=== PATIENT | female | born 1960 | race Caucasian/White ===

== ENCOUNTER → 2017-10-03 11:18 | Outpatient (CLI) | payer BC, SELFPAY ==
--- NOTE | 2017-10-03 11:23 | XR_ITS ---
XR hip RT 2-3V w/pelvis HISTORY: ITS.REASON: RT HIP PAIN ORDERING PHYSICIAN: Beatrice Beavers PATIENT AGE: 57 years COMPARISON: None FINDINGS: No fracture or dislocation is evident. No significant degenerative change. No lytic or blastic change. Unremarkable soft tissues IMPRESSION: Negative hip
--- NOTE | 2017-10-03 11:23 | XR_ITS ---
XR knee RT 3V HISTORY: ITS.REASON: RT KNEE PAIN ORDERING PHYSICIAN: Beatrice Beavers PATIENT AGE: 57 years COMPARISON: None FINDINGS: There are mild osteoarthritic changes of the medial compartment. No fracture or dislocation. No lytic or blastic change. IMPRESSION: Mild osteoarthritis of the medial compartment
== END ==
PROVIDERS: PCP Family Medicine; Visit Provider Nurse Practitioner
DX: M25.551 Pain in right hip (principal)
CPT/HCPCS: 73502; 73562

== ENCOUNTER → 2018-02-20 14:48 | Outpatient (CLI) | payer BC, SELFPAY | PROVIDERS: PCP Family Medicine; Visit Provider Family Medicine | DX: R06.83 Snoring (principal); E66.9 Obesity, unspecified | CPT/HCPCS: 95806 ==

== ENCOUNTER → 2020-08-26 07:49 | Outpatient (CLI) | payer BC, SELFPAY ==
--- NOTE | 2020-08-26 07:53 | CT_ITS ---
PROCEDURE: CT HEAD/BRAIN WO CON CLINICAL INDICATION: VERTIGO,DIZZINESS COMPARISON: No exams were available for comparison TECHNIQUE: Axial images obtained. All CT scans at the facility use one or more dose reduction, viz: automated exposure control, ma/kV adjustment per patient size (including targeted exams where dose is matched to indication, i.e. head), or iterative reconstruction technique. FINDINGS: No midline shift, mass effect, intracranial hemorrhage, hydrocephalus, or extra-axial fluid collection is evident. There is a small lucent area in the left occipital bone at approximately 5 mm. Margins are well circumscribed but not sclerotic... No mastoid effusion. No sinus air-fluid level. IMPRESSION: 1. No acute intracranial findings. 2. Small indeterminate lucency left occipital bone. Differential diagnosis is vast. Consider 3 to six-month follow-up to confirm stability Dictated by: Julio Vazquez MD 08/26/2020 08:19 Julio Vazquez MD in [place] 08/26/2020 08:19
== END ==
PROVIDERS: Visit Provider Family Medicine
DX: R42 Dizziness and giddiness (principal)
CPT/HCPCS: 70450

== ENCOUNTER 2020-09-24 10:57 | Emergency (ER) | payer BC, SELFPAY ==
[2020-09-24 11:00] VITALS: BP 134/80; PULSE 91; RESP 19; TEMP 36.8; O2SAT 96; BMI 36.2
--- NOTE | 2020-09-24 11:20 | HMH.EDUTC ---
[facility] [place] Impression: Viral syndrome Disposition: Home, Self-Care Condition on Discharge: Good Instructions: DI for Viral Syndrome Additional Instructions: Drink plenty of fluids. Take tylenol for pain or fever. Return if you begin to have difficulty breathing. Follow up with your regular doctor. GO TO THE ER FOR ANY WORSENING SYMPTOMS Prescriptions: Ondansetron [Zofran 4mg ODT] 4 mg PO Q8HP PRN #12 tab.rapdis PRN Reason: Nausea Transmission Status: Received by [id number] Benzonatate [Tessalon Perle 100mg Cap] 100 mg PO TIDP PRN #30 cap PRN Reason: Cough Transmission Status: Received by [id number] Referrals: Yanely Shoemaker MD [Primary Care Provider] - Time of Disposition: 11:39 Medical Decision Making - Medical Records Medical records reviewed: No: I reviewed the patient's medical records. - Jose Alejandro Inquiry Pt receiving controlled substance: No Vital Signs: 09/24/20 11:00 09/24/20 11:40 Temperature 98.3 F 98.3 F Temperature Source Oral Pulse Rate 91 H Pulse Rate [Right Brachial] 91 H Respiratory Rate 19 19 Blood Pressure 134/80 Blood Pressure [Right Arm] 134/80 Blood Pressure Mean [Right Arm] 98 Blood Pressure Source [Right Arm] Automatic Cuff Blood Pressure Position [Right Arm] Sitting 02 Sat by Pulse Oximetry 96 Oxygen Delivery Method Room Air [facility] [place] - General Stated complaint: covid test, symptoms Time Seen by Provider: 09/24/20 11:20 Mode of Arrival: Ambulatory Source of Information: Patient Limitations: No Limitations Description of Symptoms (Recalled from Triage Doc. by RN): PATIENT C/O BODY ACHES, HEADACHE, AND LETHARGY SINCE SUNDAY. REQUESTING A COVID TEST HEENT Symptoms (Recalled from RN notes): Yes Resp Symptoms (Recalled from RN notes): No Skin Symptoms (Recalled from RN notes): No MS Symptoms (Recalled from RN notes): No Functional Status (Recalled from RN notes): WNL - History of Present Illness Provider Complaint: She states that for the past 2 days she has had chilling, fatigue and she has felt bad. She has not been vaccinated against covid-19. She denies any known exposure but she would like to be checked for it. - Related Data Home Medications Medication Instructions Recorded Confirmed Metoprolol Succinate [Metoprolol 50 mg PO DAILY 09/24/20 09/24/20 Succinate 50mg Tablet*] Previous Rx's Medication Instructions Recorded Benzonatate [Tessalon Perle 100mg 100 mg PO TIDP PRN #30 cap 09/24/20 Cap] Ondansetron [Zofran 4mg ODT] 4 mg PO Q8HP PRN #12 tab.rapdis 09/24/20 Allergies Allergy/AdvReac Type Severity Reaction Status Date / Time No Known Allergies Allergy Verified 04/19/19 17:48 - Worker's Comp Is this a Worker's Comp case?: No [facility] History - Hepatitis A Screen Drug use history?: No High risk sexual behaviors?: No History of sexually transmitted infection?: No Currently employed?: No Childcare worker?: No Do you have indoor plumbing?: Yes Do you have electricity?: Yes Attestation statement:: This patient has been screened for Hepatitis A risk factors. I have reviewed the patient's past medical history: Yes Medical History: Denies:: Diabetes Mellitus Type 1, Diabetes Mellitus Type 2, Internal Pacemaker Other Medical History: Reports: Hormone Therapy Laterality Cases: Bilateral: Tonsillectomy Other Surgeries: Yes: No Previous Surgery. No: Pacemaker - Social History Smoking Status: Never smoker Alcohol Intake: never Occupational Status: other ROS Obtained: Yes All systems reviewed & no additional complaints - Constitutional Constitutional: Reports system reviewed and no additional complaints, except as docu - Eyes Eyes: Reports system reviewed and no additional complaints, except as docu - ENT Ears, Nose, Mouth, and Throat: Reports system reviewed and no additional complaints, except as docu - Cardiovascular Cardiovascular: Reports system review
[2020-09-24 11:40] VITALS: BP 134/80; PULSE 91; RESP 19; TEMP 36.8; O2SAT 96
== END 2020-09-24 11:43 | disposition home or self-care (01) ==
PROVIDERS: Emergency Provider Nurse Practitioner Family; PCP Family Medicine
DX: B34.9 Viral infection, unspecified (principal); R51.9 Headache, unspecified
CPT/HCPCS: 99202; G0463; U0003

== ENCOUNTER → 2021-01-03 07:51 | Outpatient (CLI) | payer BC, SELFPAY ==
[2021-01-03 08:24] LABS: Basophils # 0.1 K/mm3 (0-0.2); Eosinophils # 0.3 K/mm3 (0.0-0.4); Eosinophils % 2.9 % (0.1-12.0); Hematocrit 45.1 % (37.0-47.0); Hemoglobin 14.4 g/dL (12.2-16.2); Lymphocytes # 3.8 K/mm3 (0.7-4.5); Lymphocytes % 44.1 % (10-50); Mean Corpuscular HGB Conc 31.8 g/dL (31.8-35.4); Mean Corpuscular Hemoglobin 31.6 pg (27.0-31.2); Mean Corpuscular Volume 99.2 fl (81-99); Mean Platelet Volume 9.4 fl (7.4-10.4); Monocytes # 0.4 K/mm3 (0.1-1.0); Monocytes % 4.7 % (1.7-9.3); Neutrophils % 47.2 % (37.0-80.0); Platelet Count 314 K/mm3 (142-424); Red Blood Count 4.55 M/mm3 (4.20-5.40); White Blood Count 8.5 K/mm3 (4.8-10.8)
[2021-01-03 09:08] LABS: Alanine Aminotransferase 19 U/L (12-78); Alkaline Phosphatase 50 U/L (38-126); Anion Gap 9.3 mEq/L (5-15); Aspartate Amino Transferase 23 U/L (14-36); Bilirubin,Direct 0.1 mg/dl (0.0-0.4); Bilirubin,Indirect 0.4 mg/dL (0.0-0.9); Bilirubin,Total 0.5 mg/dl (0.2-1.3); Bilirubin,Unconjugated 0.4 mg/dL (0.0-1.1); Blood Urea Nitrogen 14 mg/dl (7-17); Calcium 9.1 mg/dl (8.4-10.2); Carbon Dioxide 27 mmol/L (22.0-30.0); Chloride 107 mmol/L (98-107); Chol/HDL Ratio 5.3 (1-3.5); Cholesterol 230 mg/dl (140-200); Estimated Glomerular Filt Rate 86 ml/min (>60); GFR (African American) 104 ML/MIN (>60); Glucose 118 mg/dl (74-100); HDL Cholesterol 43 mg/dl (40-60); Potassium 4.3 mmoL/L (3.5-5.1); Sodium 139 mmol/L (136-145); Triglycerides 203 mg/dl (30-150); VLDL Cholesterol 41 mg/dL (0-40)
[2021-01-03 09:38] LABS: Thyroid Stimulating Hormone 3.15 uIU/mL (0.465-4.68)
[2021-01-03 10:15] LABS: Free T4 (Free Thyroxine) 1.14 ng/dl (0.78-2.19)
== END ==
PROVIDERS: Visit Provider Urology
DX: R00.2 Palpitations (principal); R94.31 Abnormal electrocardiogram [ECG] [EKG]
CPT/HCPCS: 80048; 80061; 80076; 84439; 84443; 85025

== ENCOUNTER → 2021-01-05 08:09 | Outpatient (CLI) | payer BC, SELFPAY ==
--- NOTE | 2021-01-05 08:09 | NM_ITS ---
APPROVED REPORT Exam: Nuclear Stress Test Indication: HYPERLIPIDEMIA, FM HX, SOB, PALPITATIONS, ABN EKG Patient Location: Outpatient Stress Tech: Adelina Key Ht: 5 ft 11 in Wt: 260 lbs Bra Size: 34DD HR: 63 bpm BP: 158/83 mmHg BSA: 2.36 m2 BMI: 36.2 History: HYPERLIPIDEMIA, FM HX, SOB, PALPITATIONS, ABN EKG Procedure: Patient exercised on Lewis protocol 7:00 minutes and sec, resting heart rate 63 bpm, resting blood pressure 158/83 mmHg, with exercise maximum heart rate achived was 135 bpm which is 83 % of the maximum predicted heart rate and blood pressure was 204/84 mmHg. Test was stopped due to FATIGUE. Patient denied any complaint of chest pain. Patient has Adequate exercise capacity, achieved 7.7 METs of workload on treadmill, the blood pressure response to exercise was Hypertensive. Electrocardiogram Resting electrocardiogram showed sinus rhythm normal discordance complexes, nonspecific ST-T changes, right ventricular conduction delay, with exercise there is less than 1.[address] segment depression noted from the baseline EKG. The EKG portion of the exercise Myoview is due to baseline abnormal EKG. Cardiac Stress and Resting SPECT Images: Cardiac Stress and Resting SPECT images were obtained using technetium 99m Myoview 31.6 mCi stress and 10.41 mCi at rest. Gated SPECT for analysis of segmental wall motion and calculation of ejection fraction also done. Prone images were also obtained. Cardiac stress and resting SPECT images show mild fixed defect in the anterior wall with normal contractility gated SPECT is likely secondary to soft tissue attenuation, there is no reversible ischemia seen, computer derived ejection fraction is over 65% with no regional wall motion abnormality, right ventricle is normal size and contractility. However there is transient ischemic dilatation of the left ventricle seen, raising the concerns for presence of balanced ischemia, other causes for transient ischemic dilatation includes elevated left ventricular end-diastolic pressure, hypertensive heart disease, microvascular disease and diabetes. Conclusion: 1. The EKG portion of the exercise Myoview was nondiagnostic due to baseline abnormal EKG, patient also did not achieve the target heart rate, patient has adequate exercise capacity achieved 7.7 mets of workload on treadmill, the blood pressure response to exercise was hypertensive. 2. No obvious scintigraphic evidence of reversible ischemia seen at this level of exercise, computer derived ejection fraction is over 65% with no regional wall motion abnormality, right ventricle is normal size and contractility, however there is transient ischemic dilatation of the left ventricle seen, raising the concerns for presence of balanced ischemia other causes for transient ischemic dilatation seen fluid elevated left ventricular end-diastolic pressure, hypertensive heart disease, microvascular disease and diabetes mellitus. 3. Study is technically limited due to patient's body habitus, clinical correlation is recommended. Electronically signed by : Bertin Alvarez MD 01/06/2021 11:06:21
--- NOTE | 2021-01-05 09:20 | CA_ITS ---
APPROVED REPORT Exam: Exercise Treadmill Technologist: Adelina Key, Ht: 5 ft 11 in Wt: 261 lbs BSA: 2.36 m2 HR: 63 bpm BP: 158/83 mmHg Medical History Medications: Vitamin D3,,,,, Metprolol,,,,, Stress Test Details Test: Manual Treadmill HR Resting HR: 28 bpm Max Heart Rate (APMHR): 162.701496 bpm Max HR Achieved: 157 bpm Target HR (85% APMHR): 137.494383 bpm % of APMHR: 96.91 Recovery HR: 77 bpm BP Resting BP: 152/90 mmHg Max BP: 204/84 mmHg Recovery BP: 153.0/80.0 mmHg ECG Resting ECG: NSR, RBBB, low voltage QRS, T wave abns anterolaterally Clinical Exercise duration: 07:00 min Highest Stage Achieved: Exercise capacity: 7.7 METs Stress ECG Conclusion Exercised 7:00 total, completing 2 stages of Lewis and then to manual protocol the last one minute. Max HR: 135 % of PM: 83% Max BP: 204/84 METs: 7.7 Test stopped due to: SOA, Fatigue Symptoms: No CP Arrythmias/Ectopy: None ST-T Changes: Exaggeration of baseline T wave abns in the aterior leads. Conclusion: Non-diagnostic GXT. Blunted HR, response on beta saul. Myoview images reported separately. Electronically signed by : Bertin Alvarez MD 01/06/2021 11:01:45
--- NOTE | 2021-01-05 10:02 | CA_ITS ---
APPROVED REPORT EXAM: Comprehensive 2D, Doppler, and color-flow Echocardiogram Power Builder Developer: Lauren Parham CRT Ht: 5 ft 11 in Wt: 261lbs BSA: 2.36 BP: 152/83 mmHg Indications: Abnormal ECG, Chest Pain 2D Dimensions LA Volume 55.20 mL LA Volume Index 23.40 mL/m2 (M/F) 16-34 M-Mode Dimensions RVDd 2.73 cm (0.9-2.6) LA Diam 3.62 cm (1.9-4.0) LVDd 4.42 cm (3.5-5.7) Ao Diam 3.77 cm (2.0-3.7) LVDs 2.69 cm (3.5-5.7) IVSd 1.20 cm (0.6-1.1) PWd 1.20 cm (0.6-1.1) EF (Teich) 69.80% FS 39.10% EDV (Teich) 88.60 mL ESV (Teich) 26.80 mL LV Diastology E Decel Time 230.00 (160-240 msec) E/A Ratio 1.20 MED E' 7.70 (< 7 cm/sec) MED A' 8.50 cm/s E'/MED E' Ratio 8.23 (>14) LAT E' 8.90 (<10 cm/sec) LAT A' 7.20 cm/s E/LAT E' Ratio 7.12 (>14) Aortic Valve AO Peak GR. 4.50 mmHg Mitral Valve MV A Velocity 53.00 (40-130 cm/s) E/A Ratio 1.20 MV Decel. Time 230.00 (160-240 ms) Pulmonary Valve PV Peak Velocity 105.00 (50-150 cm/s) Tricuspid Valve TR P. Velocity 319.00 cm/s RAP Estimate 10.00 mmHg RVSP 50.60 mmHg Left Ventricle Technically difficult study because of the patient factors and poor acoustic windows. Left atrium is normal size, left ventricle is normal size, there is preserved left ventricular systolic function, visually estimated ejection fraction 55% with no obvious regional wall motion abnormality, endocardial surface a very poorly visualized, diastolic parameters are inconclusive. Right Ventricle Right atrium and right ventricle appears to be qualitatively mildly enlarged with normal contractility. Aortic Valve Aortic valve is minimally thickened and fibrosed. There is no aortic stenosis or aortic insufficiency. Mitral Valve Mitral valve grossly normal, there is trace mitral regurgitation. Tricuspid Valve Tricuspid valve grossly normal, there is trace tricuspid regurgitation, tricuspid regurgitation jet velocity is inadequate for calculation of the right ventricular systolic pressure. Pulmonic Valve Pulmonic valve is poorly visualized. Great Vessels Aortic root is normal size. Pericardium No significant pericardial effusion noted, there is anterior echo-free space seen. Conclusion 1. Technically difficult study because of the patient factors and poor acoustic windows. 2. Normal left ventricular size, preserved left ventricular systolic function, visually estimated ejection fraction 55% with no regional wall motion abnormality, diastolic parameters are inconclusive. 3. Mildly enlarged right ventricle with normal contractility 4. Trace mitral and tricuspid regurgitation. 5. There is no significant pericardial effusion noted, there is anterior echo-free space seen. Electronically signed by : Bertin Alvarez MD 01/06/2021 13:29:12
== END ==
PROVIDERS: PCP Family Medicine; Visit Provider Urology
DX: R00.2 Palpitations (principal); R94.31 Abnormal electrocardiogram [ECG] [EKG]
CPT/HCPCS: 78452; 93017; 93306; A9502

== ENCOUNTER → 2021-02-08 18:41 | Outpatient (CLI) | payer BC, SELFPAY | PROVIDERS: PCP Family Medicine; Visit Provider Urology | DX: R06.83 Snoring (principal); R40.0 Somnolence; R53.83 Other fatigue; R00.2 Palpitations; R94.31 Abnormal electrocardiogram [ECG] [EKG] | CPT/HCPCS: G0399 ==

== ENCOUNTER 2021-09-07 08:08 | Day surgery (SDC) | payer BC, SELFPAY ==
[2021-09-07] VITALS (12 sets, daily range): BP systolic 92–147; BP diastolic 62–87; PULSE 58–74; RESP 18; TEMP 36.8; O2SAT 91–98; BMI 36.5
--- NOTE | 2021-09-07 07:06 | IR_ITS ---
APPROVED REPORT Patient Location: Outpatient Spinning Lathe Operator: VELIA Steen RT (R) PROCEDURES Left heart catheterization Left ventriculogram Selective coronary angiogram INDICATION Abnormal Myoview Informed consent was obtained prior to the procedure. COMPLICATIONS None Estimated Blood Loss: Less than 10 mls TECHNIQUE One percent lidocaine used to anesthetize the right anterior aspect of the wrist. The right radial artery was accessed via the Seldinger technique. A 6 Vietnamese sheath was placed in the right radial artery. 2.5 mg of verapamil, 800 mcg of nitroglycerin, 1mg Lidocaine and 5000 U Heparin were given through the arterial sheath. The papa catheter was also used to perform left heart catheterization, left ventriculogram and selective coronary angiogram. At the end of the procedure the sheath was removed good hemostasis was achieved using Traclet band, patient was transferred to the postop holding area in stable condition. ANGIOGRAPHIC RESULTS The left main artery Normal The left anterior descending artery Is an ostial and proximal 10 to 20% smooth stenosis accompanied initially by TAYO II flow in the LAD The circumflex artery Nondominant with mild 10% luminal irregularities The right coronary artery Large dominant normal with initial TAYO II flow which improved to TAYO-3 flow with subsequent injection The NEIL ventriculogram reveals Normal 65% The left ventricular end-diastolic pressure 30 mmHg IMPRESSION Mild nonflow limiting coronary disease Slow flow down the dominant right coronary artery in the LAD consistent with endothelial dysfunction combined with diastolic dysfunction Normal left ventricular systolic function Elevated LVEDP consistent with diastolic dysfunction PLAN 1. Aggressive risk factor modification 2. Treatment of endothelial dysfunction and diastolic dysfunction Electronically signed by : Farshad More MD 09/07/2021 12:46:00
[2021-09-07 08:23] LABS: Coronavirus 19, PCR Not Detected (NotDetected); Influenza A, PCR Not Detected (NotDetected); Influenza B, PCR Not Detected (NotDetected)
[2021-09-07 08:45] LABS: Basophils # 0.3 K/mm3 (0-0.2); Basophils % 3.6 % (0.1-2.0); Eosinophils # 0.2 K/mm3 (0.0-0.4); Eosinophils % 2.8 % (0.1-12.0); Hematocrit 44.1 % (37.0-47.0); Hemoglobin 14.6 g/dL (12.2-16.2); Lymphocytes % 37.9 % (10-50); Mean Corpuscular Volume 96.9 fl (81-99); Mean Platelet Volume 8.9 fl (7.4-10.4); Monocytes # 0.5 K/mm3 (0.1-1.0); Monocytes % 5.7 % (1.7-9.3); Platelet Count 280 K/mm3 (142-424); Red Blood Count 4.55 M/mm3 (4.20-5.40)
[2021-09-07 08:52] LABS: Chloride 105 mmol/L (98-107); Potassium 4.1 mmoL/L (3.5-5.1); Sodium 139 mmol/L (136-145)
[2021-09-07 08:54] LABS: Alanine Aminotransferase 21 U/L (12-78); Anion Gap 8.1 mEq/L (5-15); Aspartate Amino Transferase 37 U/L (14-36); Bilirubin,Unconjugated 0.5 mg/dL (0.0-1.1); Blood Urea Nitrogen 13 mg/dl (7-17); Carbon Dioxide 30 mmol/L (22.0-30.0); Creatinine Clearance Estimated 162 mL/min (50-200); Estimated Glomerular Filt Rate 86 ml/min (>60); GFR (African American) 104 ML/MIN (>60)
[2021-09-07 08:55] LABS: Albumin Level 4.1 g/dl (3.5-5.0); Alkaline Phosphatase 54 U/L (38-126); Bilirubin,Direct 0.1 mg/dl (0.0-0.4); Bilirubin,Indirect 0.5 mg/dL (0.0-0.9); Bilirubin,Total 0.6 mg/dl (0.2-1.3); Calcium 9.1 mg/dl (8.4-10.2); Chol/HDL Ratio 6.4 (1-3.5); Cholesterol 225 mg/dl (140-200); Glucose 127 mg/dl (74-100); HDL Cholesterol 35 mg/dl (40-60); Total Protein,Serum 7.4 g/dl (6.3-8.2); Triglycerides 212 mg/dl (30-150); VLDL Cholesterol 42 mg/dL (0-40)
[2021-09-07 09:06] LABS: Direct LDL Cholesterol 148.27 mg/dL (100-129)
== END 2021-09-07 15:13 | disposition home or self-care (01) ==
LOC: CATHLAB 08:14
PROVIDERS: Nurse Practitioner Family; PCP Family Medicine; Visit Provider Internal Medicine
DX: I25.118 Atherosclerotic heart disease of native coronary artery with other forms of angina pectoris (principal); R00.2 Palpitations; R06.00 Dyspnea, unspecified; R94.31 Abnormal electrocardiogram [ECG] [EKG]; R94.39 Abnormal result of other cardiovascular function study; I11.9 Hypertensive heart disease without heart failure; E11.9 Type 2 diabetes mellitus without complications
CPT/HCPCS: 36415; 80048; 80061; 80076; 85025; 93458; 99152; C1725; C1769; C9803; J1644; Q9967; U0003; U0005

== ENCOUNTER 2021-11-15 17:30 | Outpatient (RCR) | payer BC, SELFPAY ==
--- NOTE | 2021-11-02 13:48 | HMH.PTOPEV ---
PT Outpatient Evaluation Rehab PT Outpatient Evaluation Start: 11/02/21 11:21 Freq: Status: Active Protocol: Document 11/02/21 11:21 RODOLFO (Rec: 11/02/21 11:25 RODOLFO [id number]) Electronically Signed By Gigi Chua, PT 11/02/21 11:21 Outpatient Therapy Subjective History Subjective History Patient is a 61 year old female presenting to outpatient PT with reports of sub-acute R heel pain of insidious onset starting approx 3 months ago. No recent imaging to report. Pain is worse upon standing in the morning. Signs and symptoms consistent with plantar fasciitis. Comorbidities include hx of HTN and pre- diabetes. Chief Complaint Pain Symptom Type Ache,Sharp Symptoms Relieved By Rest/Positioning,Ice,Activity Symptoms Aggravated By Standing,Physical Activity, Walking Prior Functional Limitations None,Bending/Stooping Current Functional Limitations Housework,Standing Symptom Description Intermittent Level of pain today (0-10) 3 Pain scale - at its best (0-10) 0 Pain scale - at its worst (0-10) 8 Ankle/Foot Eval Gait Observation General Gait Pattern Observation Antalgic Gait,Decrease Weight Bear (R) Assistive Device Ambulation Assistive Device None Palpation Tenderness right Ankle/Foot Palpation Findings Tenderness Ankle/Foot Palpation Overall Comment Calcaneal tubercle/proximal 5th ray 2/4 ROM Ankle/Foot Dorsiflexion w/Knee Extended -14 Active Range Motion (degrees) Ankle/Foot Plantar Flexion Active Range WNL of Motion (degrees) Ankle/Foot Eversion Active Range of 12 Motion (degrees) Ankle/Foot Inversion Active Range of 32 Motion (degrees) Ankle/Foot ROM Limitations Soft Tissue Tightness Great Toe ROM Reason Not Measured Within Functional Limits MMT Ankle Dorsiflexion Strength Grade 5 Normal Ankle Plantarflexion Strength Grade 5 Normal Foot Eversion Strength Grade 4 Good Foot Inversion Strength Grade 4 Good Special Tests Ankle Anterior Drawer Test Negative Right Ankle Eversion Test Negative Right Talar Tilt Test Negative Right Ankle Posterior Drawer Test Negative Right Foot Interdigital Neuroma Test Negative Right Outpatient Therapy Assessment Impairments Problems/Impairmments Palpation Tenderness,Impaired
== END 2021-11-15 17:35 | disposition home or self-care (01) ==
LOC: PT 17:30
PROVIDERS: PCP Family Medicine; Visit Provider Nurse Practitioner Family
DX: M79.671 Pain in right foot (principal)
CPT/HCPCS: 97035; 97110; 97163

== ENCOUNTER → 2021-11-17 14:58 | Outpatient (CLI) | payer BC, SELFPAY ==
--- NOTE | 2021-11-17 15:01 | XR_ITS ---
FINAL REPORT CLINICAL HISTORY: pain, possibe spur FINDINGS: RIGHT FOOT Three weight-bearing views of the right foot demonstrate no acute fracture or dislocation. The visualized joint spaces are normally aligned. There is mild degenerative change of the 1st MTP joint. There are small calcaneal spurs. The soft tissues are unremarkable. IMPRESSION: Mild degenerative change with no acute bony abnormality. Reviewed, Interpreted and Dictated by Wilmar Chavez III, MD Transcribed by Beth Wilson Authenticated and . [facility]
== END ==
PROVIDERS: PCP Family Medicine; Visit Provider Podiatrist
DX: M79.671 Pain in right foot (principal); M24.571 Contracture, right ankle; M72.2 Plantar fascial fibromatosis
CPT/HCPCS: 73630

== ENCOUNTER → 2022-07-15 08:06 | Outpatient (CLI) | payer BC, SELFPAY ==
[2022-07-15 09:33] LABS: Basophils # 0.1 K/mm3 (0-0.2); Basophils % 0.8 % (0.1-2.0); Eosinophils # 0.2 K/mm3 (0.0-0.4); Eosinophils % 1.9 % (0.1-12.0); Hematocrit 43.9 % (37.0-47.0); Hemoglobin 13.7 g/dL (12.2-16.2); Lymphocytes # 2.7 K/mm3 (0.7-4.5); Lymphocytes % 35.9 % (10-50); Mean Corpuscular HGB Conc 31.1 g/dL (31.8-35.4); Mean Corpuscular Hemoglobin 29.2 pg (27.0-31.2); Mean Corpuscular Volume 93.8 fl (81-99); Mean Platelet Volume 9.3 fl (7.4-10.4); Monocytes # 0.4 K/mm3 (0.1-1.0); Neutrophils # 4.3 K/mm3 (1.8-7.8); Neutrophils % 56.4 % (37.0-80.0); Platelet Count 270 K/mm3 (142-424); Red Blood Count 4.68 M/mm3 (4.20-5.40); White Blood Count 7.6 K/mm3 (4.8-10.8)
[2022-07-15 09:54] LABS: Hemoglobin A1C 8.4 % (4.0-6.0)
[2022-07-15 10:22] LABS: Alanine Aminotransferase 15 U/L (12-78); Albumin Level 3.7 g/dl (3.5-5.0); Albumin/Globulin Ratio 1.3 (1.1-1.8); Alkaline Phosphatase 60 U/L (38-126); Anion Gap 7.3 mEq/L (5-15); Aspartate Amino Transferase 21 U/L (14-36); Bilirubin,Total 0.5 mg/dl (0.2-1.3); Blood Urea Nitrogen 11 mg/dl (7-17); Calcium 8.8 mg/dl (8.4-10.2); Carbon Dioxide 29 mmol/L (22.0-30.0); Chloride 104 mmol/L (98-107); Chol/HDL Ratio 6.2 (1-3.5); Cholesterol 211 mg/dl (140-200); Estimated Glomerular Filt Rate 73 ml/min (>60); GFR (African American) 89 ML/MIN (>60); Globulin 2.9 g/dL (1.3-3.2); Glucose 108 mg/dl (74-100); HDL Cholesterol 34 mg/dl (40-60); Potassium 4.3 mmoL/L (3.5-5.1); Sodium 136 mmol/L (136-145); Total Protein,Serum 6.6 g/dl (6.3-8.2); Triglycerides 166 mg/dl (30-150); VLDL Cholesterol 33 mg/dL (0-40)
[2022-07-15 10:33] LABS: Direct LDL Cholesterol 136.31 mg/dL (100-129)
[2022-07-15 10:39] LABS: 25-OH Vitamin D, Total 26.6 ng/mL (30-100)
[2022-07-15 10:53] LABS: Thyroid Stimulating Hormone 2.25 uIU/mL (0.465-4.68)
== END ==
PROVIDERS: PCP Family Medicine; Visit Provider Family Medicine
DX: I10 Essential (primary) hypertension (principal); R73.03 Prediabetes; E78.2 Mixed hyperlipidemia; E55.9 Vitamin D deficiency, unspecified; E66.9 Obesity, unspecified; Z68.36 Body mass index [BMI] 36.0-36.9, adult
CPT/HCPCS: 36415; 80053; 80061; 82306; 83036; 84443; 85025

== ENCOUNTER → 2022-10-17 12:36 | Outpatient (CLI) | payer BC, SELFPAY ==
[2022-10-17 11:34] LABS: Microscopic, Urine URINE MICROSCOPIC (MICROSCOPIC)
[2022-10-17 12:51] LABS: Appearance,Urine CLEAR (Clear); Bilirubin,Urine Negative (Negative); Blood, Urine TRACE-I (Negative); Color,Urine YELLOW (Yellow); Glucose,Urine (UA) Negative (Negative); Ketones,Urine Negative (Negative); Leukocyte Esterase,Urine Negative (Negative); Nitrate,Urine Negative (Negative); PH,Urine 5.5 (5.0-8.5); Protein,Urine Negative (Negative); Specific Gravity, Urine >= 1.030 (1.005-1.030); Urobilinogen,Urine 0.2 EU/dl (0.2)
[2022-10-17 13:20] LABS: Alanine Aminotransferase 19 U/L (12-78); Albumin/Globulin Ratio 1.3 (1.1-1.8); Alkaline Phosphatase 59 U/L (38-126); Anion Gap 11.4 mEq/L (5-15); Aspartate Amino Transferase 25 U/L (14-36); Bilirubin,Total 0.4 mg/dl (0.2-1.3); Blood Urea Nitrogen 11 mg/dl (7-17); Calcium 9.1 mg/dl (8.4-10.2); Carbon Dioxide 26 mmol/L (22.0-30.0); Chloride 108 mmol/L (98-107); Chol/HDL Ratio 4.8 (1-3.5); Cholesterol 212 mg/dl (140-200); Estimated Glomerular Filt Rate 73 ml/min (>60); GFR (African American) 89 ML/MIN (>60); Glucose 108 mg/dl (74-100); HDL Cholesterol 44 mg/dl (40-60); Potassium 4.4 mmoL/L (3.5-5.1); Sodium 141 mmol/L (136-145); Triglycerides 183 mg/dl (30-150); VLDL Cholesterol 37 mg/dL (0-40)
[2022-10-17 13:31] LABS: Direct LDL Cholesterol 122.56 mg/dL (100-129)
[2022-10-17 13:33] LABS: RBC,Urine Occasional #/hpf (0-3); Squamous Epithelial Cell,Urine Occasional #/hpf (0-5); WBC,Urine Occasional #/hpf (0-3)
[2022-10-17 13:37] LABS: 25-OH Vitamin D, Total 21.1 ng/mL (30-100)
[2022-10-17 13:47] LABS: Hemoglobin A1C 5.8 % (4.0-6.0)
[2022-10-17 14:06] LABS: Vitamin B12 367 pg/mL (239-931)
[2022-10-17 16:49] LABS: Creatinine,Urine Random 214 mg/dL (Not Estab.)
[2022-10-17 16:52] LABS: Microalbumin/Creatinine Ratio 4.2
[2022-10-19 03:37] LABS: Neisseria gonorrhoeae, NAA Negative (Negative)
== END ==
PROVIDERS: PCP Nurse Practitioner Family; Visit Provider Nurse Practitioner Family
DX: E11.69 Type 2 diabetes mellitus with other specified complication (principal); E78.5 Hyperlipidemia, unspecified; E55.9 Vitamin D deficiency, unspecified; R53.83 Other fatigue; E66.9 Obesity, unspecified; Z68.36 Body mass index [BMI] 36.0-36.9, adult; Z11.8 Encounter for screening for other infectious and parasitic diseases
CPT/HCPCS: 36415; 80053; 80061; 81001; 82043; 82306; 82570; 82607; 83036; 87086; 87491; 87591

== ENCOUNTER → 2023-01-11 11:00 | Outpatient (CLI) | payer BC, SELFPAY ==
[2023-01-11 14:57] LABS: Alanine Aminotransferase 15 U/L (12-78); Albumin Level 3.9 g/dl (3.5-5.0); Albumin/Globulin Ratio 1.1 (1.1-1.8); Alkaline Phosphatase 55 U/L (38-126); Anion Gap 12.6 mEq/L (5-15); Aspartate Amino Transferase 19 U/L (14-36); Bilirubin,Total 0.6 mg/dl (0.2-1.3); Blood Urea Nitrogen 10 mg/dl (7-17); Carbon Dioxide 28 mmol/L (22.0-30.0); Chloride 106 mmol/L (98-107); Chol/HDL Ratio 6.9 (1-3.5); Cholesterol 222 mg/dl (140-200); Estimated Glomerular Filt Rate 73 ml/min (>60); GFR (African American) 89 ML/MIN (>60); Globulin 3.5 g/dL (1.3-3.2); Glucose 104 mg/dl (74-100); HDL Cholesterol 32 mg/dl (40-60); Potassium 4.6 mmoL/L (3.5-5.1); Sodium 142 mmol/L (136-145); Total Protein,Serum 7.4 g/dl (6.3-8.2); Triglycerides 175 mg/dl (30-150); VLDL Cholesterol 35 mg/dL (0-40)
[2023-01-11 15:08] LABS: Direct LDL Cholesterol 138.18 mg/dL (100-129)
[2023-01-11 15:14] LABS: 25-OH Vitamin D, Total 23.8 ng/mL (30-100)
[2023-01-11 18:28] LABS: Hemoglobin A1C 5.6 % (4.0-6.0)
--- OUTSIDE RECORDS SUMMARY | 2023-01-12 14:05 | XMS_ITS | Patient Health Record ---
Author Name Unknown Organization [facility] PRODUCTION Address [address] [place] [address] Care Team Providers Care Medical Housekeeper Name Role Phone Davida Martel Unavailable [phone] Jean Cantu Unavailable [phone] PROBLEMS Type Condition ICD9-CM Code [id number] Code Onset Dates Condition Status W/U Status Risk SNOMED Code Notes Problem Cervical smear, as part of routine gynecological examination Z01.419 Jan, Active [id number] Annual without abnormal findings ENCOUNTERS from 1962 to 2023-01-12 Encounter Location Date Provider Diagnosis [facility] [address] [place] [address] Apr, [facility] [address] [place] [address] Jan, Davida Fusstephanie [facility] [address] [place] [address] Sep, [facility] [address] [place] [address] Jul, [facility] [address] [place] [address] Jul, Kodi
== END ==
PROVIDERS: PCP Nurse Practitioner Family; Visit Provider Nurse Practitioner Family
DX: E11.69 Type 2 diabetes mellitus with other specified complication (principal); E78.5 Hyperlipidemia, unspecified; E55.9 Vitamin D deficiency, unspecified; E66.9 Obesity, unspecified; Z68.38 Body mass index [BMI] 38.0-38.9, adult
CPT/HCPCS: 80053; 80061; 82306; 83036

== ENCOUNTER 2023-04-24 13:09 | Outpatient (CLI) | payer BC, SELFPAY ==
--- NOTE | 2023-04-24 13:10 | CA_ITS ---
APPROVED REPORT EXAM: Comprehensive 2D, Doppler, and color-flow Echocardiogram [employer] Head: ELIE Mckeon, RVS Ht: 5 ft 10 in Wt: 257lbs BSA: 2.32 BP: 133/92 mmHg Indications: CP, CAD, Abn EKG, HTN, DM, pectis excavatum Echo Enhancing Agent Comments: TDS due to patient factors 2D Dimensions Left Atrium 3.50 cm LA Volume 61.90 mL LA Volume Index 26.00 mL/m2 (M/F) 16-34 M-Mode Dimensions RVDd 3.11 cm (0.9-2.6) LA Diam 4.52 cm (1.9-4.0) LVDd 5.24 cm (3.5-5.7) LVDs 3.32 cm (3.5-5.7) IVSd 0.72 cm (0.6-1.1) PWd 0.77 cm (0.6-1.1) EF (Teich) 66.00% EPSs 1.19 cm FS 36.60% EDV (Teich) 131.80 mL TAPSE 2.06 (<1.7) ESV (Teich) 44.80 mL LV Diastology E Decel Time 147 (160-240 msec) E/A Ratio 1.42 MED A' 6.20 cm/s LAT A' 8.40 cm/s Aortic Valve ELIZABETH Index 0.77 cm2/m2 AoV Peak Rory. 120.0 (50-130 cm/s) AO Peak GR. 5.70 mmHg AO Mean GR. 2.90 (<5 mmHg) AO VTI 25.8 (18-25 cm) ELIZABETH (VTI) 1.84 (2.5-4.5 cm2) Mitral Valve MV A Velocity 76.0 (40-130 cm/s) E/A Ratio 1.42 Tricuspid Valve TR P. Velocity 179.00 cm/s RAP Estimate 10.00 mmHg RVSP 22.70 mmHg Left Ventricle The left ventricle is normal size. The left ventricular systolic function is normal. The left ventricular ejection fraction is within the normal range. There is normal left ventricular wall thickness. The septum is asynchronous. The left ventricular diastolic function is normal. LVEF is 55%. Right Ventricle The right ventricle is moderately dilated. Right ventricle is mildly hypokinetic. Atria Left atrium is mildly dilated. The right atrium is mildly dilated. There is no Doppler evidence of interatrial shunt. Aortic Valve The aortic valve opens well. There is no aortic valvular stenosis. No aortic regurgitation is present. Mitral Valve The mitral valve is normal in structure. No evidence of mitral valve stenosis. Trace mitral regurgitation. Tricuspid Valve The tricuspid valve leaflets are thin and pliable. Trace tricuspid regurgitation. There is insufficient TR jet to estimate RVSP. Pulmonic Valve The pulmonary valve is normal in structure. Trace pulmonic regurgitation. Great Vessels The aortic root is normal in size. The ascending aorta is normal in size. IVC is normal in size and collapses >50% with inspiration. Pericardium There is no pericardial effusion. Other Information Study Quality: Technically Difficult Conclusion Technically difficult study due to poor acoustic windows. Normal LV systolic function. Asynchronous septum. Moderate RV dilation with mild RV dysfunction. Mild biatrial dilation. No significant valvular stenosis or regurgitation. Electronically signed by : Madyson Allen MD 04/25/2023 04:04:50
--- OUTSIDE RECORDS SUMMARY | 2023-04-24 13:12 | XMS_ITS | Patient Health Record ---
Author Name Unknown Organization [facility] Address [address] [place] [address] Care Team Providers Care Collar Baster Name Role Phone Davida Martel Unavailable [phone] Reason For Referral No Information Medications Medication SIG (Take, Route, Frequency, Duration) Notes Start Date End Date Status Estradiol 0.5 MG Take 1 tablet by joyce th once daily for 11 pt. needs appt. for further refills Active Problems Problem Type SNOMED Code ICD Code Onset Dates Problem Status W/U Status Risk Notes Problem Gynecological examination normal ([id number] ) Cervical smear, as part of routine gynecological examination (Z01.419) 01/25/20 16 Active confirmed Annual without abnormal findings Plan Of Treatment No Information Medical (General) History Medical History History ICD Code ABORTIONS: 0 MENSTR FLOW: Medium SOCIAL HX: 2 alcoholic romie/week; denies use of cig/rec drugs SOCIAL HX: 2 alcoholic romie/week; denies use of cig/rec drugs Abnormal Pap HPV Stress Urinary Incontinence Genital Warts estradiol 0.5 mg tablet, BY MOUTH metoprolol tartrate tablet Surgical History Surgery Date(Month/Year) Tonsilectomy 1974, Tubal 200 0, trh, sacrocolpopexy with mini-arc 2011, tonsillectomy
== END 2023-04-24 23:59 ==
LOC: RT 13:10
PROVIDERS: PCP Nurse Practitioner Family; Visit Provider Internal Medicine
DX: R06.09 Other forms of dyspnea (principal); R94.31 Abnormal electrocardiogram [ECG] [EKG]
CPT/HCPCS: 93306

== ENCOUNTER 2023-05-21 10:20 | Outpatient (CLI) | payer BC, SELFPAY ==
[2023-05-21 12:06] LABS: Alanine Aminotransferase 15 U/L (12-78); Albumin Level 3.5 g/dl (3.5-5.0); Albumin/Globulin Ratio 1.2 (1.1-1.8); Anion Gap 8.2 mEq/L (5-15); Aspartate Amino Transferase 20 U/L (14-36); Bilirubin,Total 0.5 mg/dl (0.2-1.3); Blood Urea Nitrogen 12 mg/dl (7-17); Calcium 8.9 mg/dl (8.4-10.2); Carbon Dioxide 28 mmol/L (22.0-30.0); Chloride 108 mmol/L (98-107); Cholesterol 207 mg/dl (140-200); Estimated Glomerular Filt Rate 73 ml/min (>60); GFR (African American) 89 ML/MIN (>60); Globulin 2.9 g/dL (1.3-3.2); Glucose 111 mg/dl (74-100); HDL Cholesterol 35 mg/dl (40-60); Potassium 4.2 mmoL/L (3.5-5.1); Sodium 140 mmol/L (136-145); Total Protein,Serum 6.4 g/dl (6.3-8.2); Triglycerides 143 mg/dl (30-150); VLDL Cholesterol 29 mg/dL (0-40)
[2023-05-21 12:07] LABS: Alkaline Phosphatase 56 U/L (38-126); Chol/HDL Ratio 5.9 (1-3.5)
[2023-05-21 12:18] LABS: Direct LDL Cholesterol 124.86 mg/dL (100-129)
[2023-05-21 12:19] LABS: 25-OH Vitamin D, Total 34.1 ng/mL (30-100)
[2023-05-21 12:35] LABS: Thyroid Stimulating Hormone 2.15 uIU/mL (0.465-4.68)
[2023-05-21 14:28] LABS: Hemoglobin A1C 5.8 % (4.0-6.0)
[2023-05-21 20:17] LABS: Free T4 (Free Thyroxine) 1.23 ng/dl (0.78-2.19)
== END 2023-05-21 23:59 ==
LOC: LAB.DROPOF 10:21
PROVIDERS: PCP Nurse Practitioner Family; Visit Provider Nurse Practitioner Family
DX: E11.69 Type 2 diabetes mellitus with other specified complication (principal); E78.5 Hyperlipidemia, unspecified; E55.9 Vitamin D deficiency, unspecified; E66.9 Obesity, unspecified; Z68.36 Body mass index [BMI] 36.0-36.9, adult
CPT/HCPCS: 36415; 80053; 80061; 82306; 83036; 84439; 84443

== ENCOUNTER 2023-08-20 14:14 | Outpatient (CLI) | payer BC, SELFPAY ==
[2023-08-20 14:27] LABS: Basophils # 0.1 K/mm3 (0-0.2); Basophils % 0.9 % (0.1-2.0); Eosinophils # 0.2 K/mm3 (0.0-0.4); Eosinophils % 1.9 % (0.1-12.0); Hematocrit 44.6 % (37.0-47.0); Lymphocytes # 3.1 K/mm3 (0.7-4.5); Lymphocytes % 32.2 % (10-50); Mean Corpuscular HGB Conc 31.3 g/dL (31.8-35.4); Mean Platelet Volume 9.7 fl (7.4-10.4); Monocytes # 0.4 K/mm3 (0.1-1.0); Monocytes % 4.3 % (1.7-9.3); Neutrophils # 5.7 K/mm3 (1.8-7.8); Neutrophils % 60.8 % (37.0-80.0); Platelet Count 312 K/mm3 (142-424); White Blood Count 9.5 K/mm3 (4.8-10.8)
[2023-08-20 15:07] LABS: Alanine Aminotransferase 12 U/L (12-78); Albumin Level 3.9 g/dl (3.5-5.0); Albumin/Globulin Ratio 1.1 (1.1-1.8); Alkaline Phosphatase 64 U/L (38-126); Anion Gap 12.7 mEq/L (5-15); Aspartate Amino Transferase 20 U/L (14-36); Bilirubin,Total 0.7 mg/dl (0.2-1.3); Blood Urea Nitrogen 13 mg/dl (7-17); Calcium 9.2 mg/dl (8.4-10.2); Carbon Dioxide 30 mmol/L (22.0-30.0); Chloride 103 mmol/L (98-107); Chol/HDL Ratio 4.9 (1-3.5); Cholesterol 240 mg/dl (140-200); Estimated Glomerular Filt Rate 73 ml/min (>60); GFR (African American) 88 ML/MIN (>60); Globulin 3.5 g/dL (1.3-3.2); Glucose 93 mg/dl (74-100); HDL Cholesterol 49 mg/dl (40-60); Potassium 4.7 mmoL/L (3.5-5.1); Sodium 141 mmol/L (136-145); Total Protein,Serum 7.4 g/dl (6.3-8.2); Triglycerides 134 mg/dl (30-150); VLDL Cholesterol 27 mg/dL (0-40)
[2023-08-20 15:10] LABS: Creatinine,Urine Random 243 mg/dL (Not Estab.)
[2023-08-20 15:11] LABS: Microalbumin/Creatinine Ratio 4.2
[2023-08-20 15:18] LABS: Direct LDL Cholesterol 151.28 mg/dL (100-129)
[2023-08-20 15:28] LABS: T4 (Thyroxine) 9.8 ug/dl (5.53-11.0)
[2023-08-20 15:41] LABS: Thyroid Stimulating Hormone 1.98 uIU/mL (0.465-4.68)
[2023-08-20 16:02] LABS: Vitamin B12 343 pg/mL (239-931)
[2023-08-20 17:09] LABS: 25-OH Vitamin D, Total 20.6 ng/mL (30-100)
[2023-08-22 13:14] LABS: HCV Ab Non Reactive (Non Reactive); Hep A Ab, IGM Negative (Negative); Hep A Ab, Total Positive (Negative); Hep B Core Ab, IgM Negative (Negative); Hep B Core Ab, Total Negative (Negative); Hep B Surface Ab, Qual Non Reactive (.)
[2023-08-23 17:38] LABS: Iron 106 ug/dL (37-170)
[2023-08-23 17:47] LABS: Total Iron Binding Capacity 323 ug/dL (265-497)
[2023-08-23 18:14] LABS: Ferritin 63.5 ng/ml (11.1-264)
[2023-08-23 18:44] LABS: Free T4 (Free Thyroxine) 1.29 ng/dl (0.78-2.19)
[2023-08-25 11:52] LABS: HIV Screen 4th Generation wRfx Non Reactive; Triiodothyronine (T3) Reverse 16.1
[2023-08-25 11:53] LABS: HBsAg Screen Negative; Hepatitis B Surface Antigen Negative
[2023-08-25 11:54] LABS: Fibrosis Score 0.08; Fibrosis Stage F0-NO FIBROSIS; Necroinflammat Activity Score 0.02
[2023-08-25 11:55] LABS: Alpha 2-Macroglobulins, Qn 165; Apolipoprotein A-1 120; Bilirubin, Total 0.2; Haptoglobin 225
[2023-08-25 11:56] LABS: ALT (SGPT) P5P 9; GGT 25
== END 2023-08-20 23:59 | disposition home or self-care (01) ==
LOC: LAB.DROPOF 14:15
PROVIDERS: PCP Nurse Practitioner Family; Visit Provider Nurse Practitioner Family
DX: R53.83 Other fatigue (principal); B15.9 Hepatitis A without hepatic coma; B34.9 Viral infection, unspecified; E55.9 Vitamin D deficiency, unspecified; E66.9 Obesity, unspecified; Z68.36 Body mass index [BMI] 36.0-36.9, adult; Z11.3 Encounter for screening for infections with a predominantly sexual mode of transmission
CPT/HCPCS: 80053; 80061; 80074; 81596; 82043; 82306; 82570; 82607; 82728; 83036; 83540; 83550; 84436; 84439; 84443; 84482; 85025; 86703; 86704; 86706; 86708; 87086; 87340; 87522; G0432

== ENCOUNTER 2023-08-29 09:19 | Day surgery (SDC) | payer BC, SELFPAY ==
[2023-08-27 13:29] VITALS: BMI 36.2
[2023-08-29 10:38] VITALS: BP 124/84; PULSE 57; RESP 18; TEMP 36.3; O2SAT 98
[2023-08-29] MEDS: LACTATED RINGERS 1000ML 1,000 ML 25 ML IV (10:50)
[2023-08-29 11:30] VITALS: BP 92/62; PULSE 75; RESP 18; TEMP 36.1; O2SAT 98
--- NOTE | 2023-08-29 11:30 | P.PCN_ITS ---
Procedure: Date: 08/29/23 Patient Date of :: 1960 Procedure Performed:: Colonoscopy Indications:: The patient is a 63-year-old who presents for screening colonoscopy. This is the patient's first colonoscopy. Performing Provider:: Greg Beck MD Referring Provider:: Amanda Guevara APRN Sedation:: See RN records Procedure:: After placing the patient in the left lateral decubitus position, the colonosco py was gently inserted into the rectum and under direct visualization advanced to the cecum which was identified by transillumination in the right lower quadrant, identification of the ileocecal valve, appendiceal orifice, and cecal strap. Color, texture, mucosa, and anatomy of the colon were carefully examined with the scope.. Findings:: The quality of the bowel preparation was excellent. Within the hepatic flexure there was irregular appearing mucosa that was laterally spreading and diffuse. Biopsies were obtained with a cold forceps for histology. There was a sessile polyp 3 to 4 mm in size in the rectum. The polyp was removed with a cold forceps. Internal hemorrhoids were seen on retroflexion view of the colon. The remaining colon appeared normal. Impression: Polyp of the rectum Irregular appearing mucosa in the hepatic flexure Recommendations:: Await pathology results Timing of next colonoscopy will depend on pathology results Complications:: None Estimated blood obtained (mL): 0 Colonoscopy Component Colonoscopy Component Was a colonoscopy performed during today's procedure?: Yes Recommended follow up colonoscopy of at least 10 years?: Yes
--- NOTE | 2023-08-29 11:32 | EXP.ANES.CKL ---
[facility] Disclaimer: The information contained in this section may have been updated after the patient was seen, as this information can be updated by other users. Medical History Fatigue Constipation URI (upper respiratory infection) Screening for gonorrhea Screening for chlamydial disease BMI 36.0-36.9,adult Menopause Arthritis HTN (hypertension) Coronary artery disease Diastolic dysfunction Atypical angina Dyspnea Abnormal cardiovascular stress test Abnormal electrocardiography Palpitations Viral syndrome Surgical History History of partial hysterectomy Hx of tonsillectomy H/O tubal ligation History of cardiac cath Family History Father CHF (congestive heart failure) Mother Cancer lung Social History (Updated 08/27/23 @ 12:55 by Jazlyn Dalton RN) Smoking Status: Never smoker second hand exposure: No alcohol intake: never substance use type: denies use current occupational status: employed Travel in the last 8 weeks: None household members: spouse housing: house current occupational exposures/hazards: No caffeine: No [facility] Anesthesia Checklist Patient Identification Patient Identification: Verbal (Name & ) Structural Data Admitted From: Home Planned Operative Procedure/s: colonoscopy Consent for Planned Operative Procedure(s) Verified: Yes Airway Assessment Mallampati Score:: Class II C-Spine Mobility Assessed: Yes TMJ Mobility Assessed: Yes Dentition: Good Dentition Neurological Assessment Level of Consciousness: Awake, Alert and Appropriate Anesthesia Plan Anesthesia Risk discussed: Yes Anesthesia Plan: Verified ASA Class: II Anesthesia Type: MAC
[2023-08-29 11:40] VITALS: BP 120/67; PULSE 73; RESP 18; O2SAT 97
[2023-08-29 11:50] VITALS: BP 109/59; PULSE 62; RESP 18; O2SAT 98
[2023-08-29 12:02] VITALS: BP 106/70; PULSE 72; RESP 18; O2SAT 98
== END 2023-08-29 12:15 | disposition home or self-care (01) ==
PROVIDERS: PCP Nurse Practitioner Family; Visit Provider Internal Medicine
PROC: 0DJD8ZZ Inspection of Lower Intestinal Tract, Via Natural or Artificial Opening Endoscopic (ICD-10-PCS; CPT 45378; principal; 2023-08-29 11:00)
DX: Z12.11 Encounter for screening for malignant neoplasm of colon (principal); K64.8 Other hemorrhoids; D12.8 Benign neoplasm of rectum
CPT/HCPCS: 45380

== ENCOUNTER 2023-09-25 08:33 | Outpatient (CLI) | payer BC, SELFPAY ==
--- NOTE | 2023-09-25 08:41 | XR_ITS ---
FINAL REPORT TECHNIQUE: Bone densitometry calculations of the lumbar spine and left hip were obtained. CLINICAL HISTORY: screening osteoporosis COMPARISON: None FINDINGS: Using L1-4, the bone mineral density of the spine is 1.043 g/cm2, corresponding to T-score of 0. Using the right femoral neck, the bone mineral density of the femoral neck is g/cm2, corresponding to a T-score of -1.3. NOTE: T-score: Standard deviation compared with peak bone mass of young adult mean. *Following the recommendations of the International Society of Bone densitometry, classification of hip BMD is based on the lower of two T-scores; total hip or femoral neck. IMPRESSION: Diminished bone mineral density of the right hip consistent with osteopenia. Normal bone mineral density of the lumbar spine and left hip. Reviewed, Interpreted and Dictated by Caroline Stone MD Transcribed by Clara Estevez Authenticated and [facility]
== END 2023-09-25 23:59 | disposition home or self-care (01) ==
LOC: RAD 08:33
PROVIDERS: PCP Nurse Practitioner Family; Visit Provider Nurse Practitioner Family
DX: M85.88 Other specified disorders of bone density and structure, other site (principal); Z13.820 Encounter for screening for osteoporosis
CPT/HCPCS: 77080

== ENCOUNTER 2023-09-27 11:44 | Outpatient (CLI) | payer BC, SELFPAY ==
[2023-09-27 14:37] VITALS: BMI 37.3
== END 2023-09-27 23:59 | disposition home or self-care (01) ==
LOC: DIETICIAN 11:45
PROVIDERS: PCP Nurse Practitioner Family; Visit Provider Nurse Practitioner Family
DX: E11.69 Type 2 diabetes mellitus with other specified complication (principal); E66.9 Obesity, unspecified; Z68.36 Body mass index [BMI] 36.0-36.9, adult
CPT/HCPCS: 97802

== ENCOUNTER 2023-10-13 19:28 | Emergency (ER) | payer BC, SELFPAY ==
[2023-10-13 19:29] VITALS: BP 122/79; PULSE 85; RESP 18; TEMP 36.6; O2SAT 99; BMI 35.8
--- NOTE | 2023-10-13 20:08 | XR_ITS ---
PROCEDURE INFORMATION: Exam: XR Right Wrist Exam date and time: 10/13/2023 8:10 PM Age: 63 years old Clinical indication: Injury or trauma; Fall; Swelling (edema); Wrist; Right TECHNIQUE: Imaging protocol: Radiologic exam of the right wrist. Views: 3 or more views. COMPARISON: No relevant prior studies available. FINDINGS: Bones/joints: Normal. Soft tissues: Normal. IMPRESSION: No acute findings.
--- NOTE | 2023-10-13 21:03 | ED_ITS ---
Discharge Plan Disposition Patient Disposition: Home, Self-Care Chief Complaint: Extremity Injury, Upper Prescriptions Prescriptions: No Action (DME) lancets [OneTouch UltraSoft Lancets] Misc See Rx Instructions .Route Qty: 100 3RF Rx Instructions: check glucose 1 time per day (DME) OneTouch Ultra Test Strip See Rx Instructions .Route Qty: 100 3RF Rx Instructions: check glucose 1 time daily (DME) blood-glucose meter [OneTouch Ultra2 Meter] Misc See Rx Instructions .ROUTE .MEDSUPPLY Qty: 1 Rx Instructions: As directed Entresto 49-51 mg tablet 1 tab PO BID Qty: 180 3RF rosuvastatin 5 mg Tablet 5 mg PO DAILY vit D3-folic dckn-[id number]-B12 2,000-800-0.32 unit-mcg-mg Tablet 2,000 tab PO DAILY Referrals Follow up/Referrals: Amanda Guevara APRN [Primary Care Provider] - See instructions Activity Restrictions/Add. Instructions Additional Instructions/Restrictions: At this time it was felt you are safe to be discharged home. If new or worsening symptoms please do not hesitate to return the emergency department. Please use your wrist splint for comfort and take Tylenol and ibuprofen every 6 hours as needed for pain, it is okay to take them at the same time. If symptoms persist in 10 days please follow-up and get a repeat x-ray as small fractures may not be apparent initially today. Clinical Impressions Clinical Impression: Pain of wrist after trauma, Right wrist sprain Discharge ED Provider: Marlon Bell General Adult [facility] General Chief complaint: Extremity Injury, Upper Stated complaint: AO 10/13/23 1630 Injury right wrist Time Seen by Provider: 10/13/23 19:45 Mode of Arrival: Ambulatory Source of Information: Patient Limitations: Physical Limitations Description of Symptoms (Recalled from ER Triage Doc. by RN): Patient presented to the ED for right wrist pain. Patient stated she was playing volleyball and fell backwards and landed on both wrists; did not hit head. Patient rates pain 10/10 to right wrist; no pain or difficulty with left wrist. Patient does not have tingling or decreased sensation to that hand/ arm and is able to move fingers. History of Present Illness HPI narrative: Patient is a 63-year-old female with no pertinent past medical history presents emergency department for evaluation of traumatic wrist pain. Patient fell backwards on her both wrist while playing volleyball, landed on grass. This resulted in severe right wrist pain. Due to this she presents here for continued evaluation. Related Data Home Medications Medication Instructions Recorded Confirmed blood-glucose meter (OneTouch #1 ea 10/17/22 08/20/23 Ultra2 Meter) rosuvastatin 5 mg tablet 5 mg PO DAILY 08/29/23 08/29/23 vit D3-folic acid-vit B2-B6-B12 2,000 tab PO DAILY 08/29/23 08/29/23 2,000 unit-800 mcg-0.32 mg tablet Previous Rx's Medication Instructions Recorded blood sugar diagnostic (OneTouch #100 ea 07/18/22 Ultra Test strips) lancets (OneTouch UltraSoft #100 ea 07/18/22 Lancets) sacubitril 49 mg-valsartan 51 mg 1 tab PO BID #180 tabs 10/01/23 tablet (Entresto) Allergies Allergy/AdvReac Type Severity Reaction Status Date / Time No Known Allergies Allergy Verified 08/29/23 10:37 [facility] Disclaimer: The information contained in this section may have been updated after the patient was seen, as this information can be updated by other users. Medical History (Updated 10/13/23 @ 21:07 by Marlon Bell MD) Acute bronchitis Acute sinusitis Fatigue Constipation URI (upper respiratory infection) Screening for gonorrhea Screening for chlamydial disease BMI 36.0-36.9,adult Menopause Arthritis HTN (hypertension) Coronary artery disease Diastolic dysfunction Atypical angina Dyspnea Abnormal cardiovascular stress test Abnormal electrocardiography Palpitations Viral syndrome Surgical History History of partial hysterectomy Hx of tonsillectomy H/O tubal ligation History of cardiac cath Family History Father CHF (congestive heart failure) Mother Cancer lung Social History (Updated 08/27/23 @ 12:55 by Jazlyn Dalton RN) Smoking Status: Former smoker second hand exposure: No alcohol intake: never substance use type: denies use current occupational status: employed Travel in the last 8 weeks: None household members: spouse housing: house current occupational exposures/hazards: No caffeine: No ROS Obtained: Yes Systems reviewed as appropriate & no additional complaints except as documented Physical Exam General General appearance: alert and in no apparent distress Head Head exam: atraumatic and normocephalic Eye Eye exam: Present PERRL ENT ENT exam: Present mucous membranes moist Neck Neck exam: Present normal inspection Chest Chest inspection: Present normal inspection and symmetric chest wall rise Respiratory Respiratory exam: Absent respiratory distress Cardiovascular Cardiovascular exam: Present regular rate and normal rhythm Abdominal Exam Abdominal exam: Present soft Extremities Exam Extremities exam: Present other (Swelling and tenderness over the right wrist, palpable dorsal pedal pulse, no tenderness over the remainder of the right upper extremity, no tenderness over the left upper extremity.) Neurological Exam Neurological exam: Present alert Psychiatric Psychiatric exam: Present normal affect Skin Skin exam: Present warm and dry Medical Decision Making Jose Alejandro Inquiry Pt receiving controlled substance: No Vital Signs: 10/13/23 19:29 Temperature 97.9 F Temperature Source Oral Pulse Rate [Left Brachial] 85 Respiratory Rate 18 Blood Pressure [Left Arm] 122/79 Blood Pressure Mean [Left Arm] 93 02 Sat by Pulse Oximetry 99 Orders (Tests/Meds): ORDERS Category Date Time Status Wrist XR right minimum 3 views [XR wrist RT min 3V] Exams 10/13/23 20:08 Completed Stat Medical Decision Narrative: In summary patient is a 63-year-old female past medical history described above presents emergency department for evaluation of traumatic wrist pain. Based on history and physical exam limited trauma survey will be conducted with plain film of the right wrist. Initial interventions include Tylenol and ibuprofen. X-ray informally interpreted by me, no acute displaced fracture. Formal read shows no acute pathology. Given this patient will be placed in wrist splint and given the possibility of small occult fracture if pain persist was instructed to follow-up for repeat x-ray in 10 days. Patient is appropriate for discharge at this time. Critical Care Critical Care Time Critical Care Time: No
[2023-10-13] MEDS: ACETAMINOPHEN 500MG TAB 1000 MG PO (21:10)
[2023-10-13] MEDS: IBUPROFEN 600 MG TABLET PO (21:14)
[2023-10-13 21:26] VITALS: BP 142/77; PULSE 77; RESP 18; TEMP 36.6; O2SAT 95
== END 2023-10-13 21:28 | disposition home or self-care (01) ==
PROVIDERS: Emergency Provider Emergency Medicine; PCP Nurse Practitioner Family
DX: S63.501A Unspecified sprain of right wrist, initial encounter; M25.531 Pain in right wrist; W18.39XA Other fall on same level, initial encounter; Y93.68 Activity, volleyball (beach) (court)
CPT/HCPCS: 73110; 99283

== ENCOUNTER 2023-11-19 16:00 | Outpatient (CLI) | payer BC, SELFPAY ==
[2023-11-19 14:21] LABS: Albumin Level 3.9 g/dl (3.5-5.0); Chloride 106 mmol/L (98-107)
[2023-11-19 14:22] LABS: Potassium 4.5 mmoL/L (3.5-5.1); Sodium 139 mmol/L (136-145)
[2023-11-19 14:24] LABS: Alanine Aminotransferase 12 U/L (12-78); Anion Gap 8.5 mEq/L (5-15); Aspartate Amino Transferase 18 U/L (14-36); Blood Urea Nitrogen 12 mg/dl (7-17); Carbon Dioxide 29 mmol/L (22.0-30.0); Estimated Glomerular Filt Rate 73 ml/min (>60); GFR (African American) 88 ML/MIN (>60)
[2023-11-19 14:25] LABS: Albumin/Globulin Ratio 1.3 (1.1-1.8); Alkaline Phosphatase 59 U/L (38-126); Bilirubin,Total 0.7 mg/dl (0.2-1.3); Calcium 8.9 mg/dl (8.4-10.2); Cholesterol 212 mg/dl (140-200); Globulin 3.1 g/dL (1.3-3.2); Glucose 91 mg/dl (74-100); HDL Cholesterol 42 mg/dl (40-60); Triglycerides 227 mg/dl (30-150); VLDL Cholesterol 45 mg/dL (0-40)
[2023-11-19 14:29] LABS: Hemoglobin A1C 5.8 % (4.0-6.0)
[2023-11-19 14:36] LABS: Direct LDL Cholesterol 118.19 mg/dL (100-129)
[2023-11-19 14:40] LABS: 25-OH Vitamin D, Total 42.8 ng/mL (30-100)
== END 2023-11-19 23:59 | disposition home or self-care (01) ==
LOC: LAB.DROPOF 16:00
PROVIDERS: PCP Nurse Practitioner Family; Visit Provider Nurse Practitioner Family
DX: E55.9 Vitamin D deficiency, unspecified (principal); E11.69 Type 2 diabetes mellitus with other specified complication; E66.9 Obesity, unspecified; Z68.37 Body mass index [BMI] 37.0-37.9, adult; E78.2 Mixed hyperlipidemia
CPT/HCPCS: 80053; 80061; 82306; 83036

== ENCOUNTER 2024-05-14 08:30 | Outpatient (CLI) | payer BC, SELFPAY ==
[2024-05-14 19:29] LABS: Anion Gap 11.3 mEq/L (5-15); Blood Urea Nitrogen 12 mg/dl (7-17); Calcium 8.9 mg/dl (8.4-10.2); Carbon Dioxide 28 mmol/L (22.0-30.0); Chloride 106 mmol/L (98-107); Chol/HDL Ratio 5.4 (1-3.5); Cholesterol 174 mg/dl (140-200); Estimated Glomerular Filt Rate 85 ml/min (>60); GFR (African American) 103 ML/MIN (>60); Glucose 94 mg/dl (74-100); HDL Cholesterol 32 mg/dl (40-60); Hemoglobin A1C 5.6 % (4.0-6.0); Potassium 4.3 mmoL/L (3.5-5.1); Sodium 141 mmol/L (136-145); Triglycerides 111 mg/dl (30-150); VLDL Cholesterol 22 mg/dL (0-40)
[2024-05-14 19:40] LABS: Direct LDL Cholesterol 103.32 mg/dL (100-129)
== END 2024-05-14 23:59 | disposition home or self-care (01) ==
LOC: LAB.DROPOF 05-16 08:49
PROVIDERS: PCP Nurse Practitioner Family; Visit Provider Nurse Practitioner Family
DX: E78.2 Mixed hyperlipidemia (principal); M25.461 Effusion, right knee; M25.561 Pain in right knee; E11.69 Type 2 diabetes mellitus with other specified complication; E66.9 Obesity, unspecified; E11.9 Type 2 diabetes mellitus without complications; Z79.85 Long-term (current) use of injectable non-insulin antidiabetic drugs; Z68.36 Body mass index [BMI] 36.0-36.9, adult
CPT/HCPCS: 80048; 80061; 83036

== ENCOUNTER 2024-05-15 08:03 | Outpatient (CLI) | payer BC, SELFPAY ==
--- NOTE | 2024-05-15 08:07 | XR_ITS ---
FINAL REPORT CLINICAL HISTORY: right knee pain and swelling COMPARISON: 10/03/2017 FINDINGS: RIGHT KNEE Three views demonstrate no acute fracture or dislocation. There is mild narrowing of the medial compartment joint space. A small joint effusion is noted. No acute soft tissue abnormality is seen. IMPRESSION: Small joint effusion. Degenerative changes without acute bony abnormality. Reviewed, Interpreted and Dictated by Gualberto Kuhn MD Transcribed by Ginny Reilly Authenticated and [facility]
== END 2024-05-15 23:59 | disposition home or self-care (01) ==
LOC: RAD 08:04
PROVIDERS: PCP Nurse Practitioner Family; Visit Provider Nurse Practitioner Family
DX: M25.561 Pain in right knee (principal); M25.461 Effusion, right knee
CPT/HCPCS: 73562

== ENCOUNTER 2024-05-28 09:29 | Outpatient (CLI) | payer BC, SELFPAY ==
--- NOTE | 2024-05-28 09:29 | MR_ITS ---
FINAL REPORT TECHNIQUE: Multiplanar and multisequence imaging the right knee was obtained without contrast. CLINICAL HISTORY: twisted her knee 1 month ago, posterior pain FINDINGS: Bones: There is no acute fracture or marrow edema. There is mild degenerative disc disease. There is mild chondromalacia of the patellofemoral and medial compartments. Menisci: There is an oblique tear of the posterior horn of the medial meniscus. The anterior horn is intact. The lateral meniscus is intact. Ligaments: No cruciate or collateral ligament tear is present. Tendons/Muscles: The quadriceps and patellar tendons are within normal limits. The biceps femoris tendon and iliotibial tract are intact. The popliteus tendon is normal. Other: There is a small to moderate joint effusion. There is a small loose body posterior to the PCL, likely calcified. IMPRESSION: Mild degenerative disc disease. Tear posterior horn medial meniscus. Reviewed, Interpreted and Dictated by Chika Ingram MD Transcribed by Helga Bynum Authenticated and [facility]
== END 2024-05-28 23:59 | disposition home or self-care (01) ==
LOC: RAD 09:29
PROVIDERS: PCP Nurse Practitioner Family; Visit Provider Nurse Practitioner Family
DX: M25.461 Effusion, right knee (principal); M25.561 Pain in right knee
CPT/HCPCS: 73721

== ENCOUNTER 2024-07-15 09:16 | Outpatient (CLI) | payer BC, SELFPAY | END 2024-07-15 23:59 | disposition home or self-care (01) | LOC: RT 09:17 | PROVIDERS: PCP Nurse Practitioner Family; Visit Provider Physician Assistant | DX: I48.91 Unspecified atrial fibrillation (principal); I47.10 Supraventricular tachycardia, unspecified; R00.2 Palpitations | CPT/HCPCS: 93270 ==

== ENCOUNTER 2024-07-30 08:31 | Emergency (ER) | payer BC, SELFPAY ==
[2024-07-30] VITALS (10 sets, daily range): BP systolic 94–131; BP diastolic 59–95; PULSE 49–97; RESP 15–23; TEMP 36.6–36.7; O2SAT 94–98; BMI 37.3
[2024-07-30 08:44] LABS: Microscopic, Urine URINE MICROSCOPIC (MICROSCOPIC)
[2024-07-30 08:45] LABS: Appearance,Urine CLEAR (Clear); Blood, Urine 2+ (Negative); Color,Urine YELLOW (Yellow); Glucose,Urine (UA) Negative (Negative); Ketones,Urine Negative (Negative); Leukocyte Esterase,Urine Negative (Negative); Nitrate,Urine Negative (Negative); PH,Urine 5.5 (5.0-8.5); Protein,Urine 2+ (Negative); Specific Gravity, Urine >= 1.030 (1.005-1.030)
[2024-07-30 08:47] LABS: Bacteria,Urine 1+ /lpf; Bilirubin,Urine 2+ (Negative); Mucus,Urine 1+ /lpf
[2024-07-30] MEDS: METOCLOPRAMIDE HCL 10MG/2ML VIAL 10 MG IVP (08:59)
[2024-07-30] MEDS: KETOROLAC 30MG/ML VIAL 15 MG IV (08:59)
[2024-07-30] MEDS: 0.9 % SODIUM CHLORIDE 1000ML 1,000 ML 999 ML IV (09:00)
[2024-07-30 09:02] LABS: Basophils % 0.4 % (0.1-2.0); Eosinophils # 0.1 Kmm3 (0.0-0.4); Eosinophils % 0.7 % (0.1-12.0); Hematocrit 46.1 % (37.0-47.0); Lymphocytes # 2.6 K/mm3 (0.7-4.5); Mean Corpuscular HGB Conc 32.5 g/dL (31.8-35.4); Mean Corpuscular Hemoglobin 29.9 pg (27.0-31.2); Mean Platelet Volume 11.4 fl (7.4-10.4); Monocytes # 0.7 K/mm3 (0.1-1.0); Monocytes % 6.4 % (1.7-9.3); Neutrophils # 7.7 K/mm3 (1.8-7.8); Neutrophils % 69.3 % (37.0-80.0); Nucleated Red Blood Cells # 0 10^3/uL; Nucleated Red Blood Cells % 0 %; Platelet Count 360 K/mm3 (142-424); Red Blood Count 5.01 M/mm3 (4.20-5.40); Red Cell Distribution Width 12.8 % (11.5-17.5); Red Cell Distribution Width-SD 42.6 fL; White Blood Count 11.1 K/mm3 (4.8-10.8)
--- NOTE | 2024-07-30 09:02 | ECG_ITS ---
APPROVED REPORT Exam: Resting ECG HR:112 bpm ECG Measurements Heart Rate 112 AXES QRSd 134 QRS 31 QT 368 T 102 QTc 435 Conclusion A-fib with RVR versus a flutter Right bundle branch block Right axis deviation Electronically signed by : ATTILA DE LOS SANTOS, 07/31/2024 07:16:57
--- NOTE | 2024-07-30 09:03 | HMH.EDGENADL ---
Discharge Plan Disposition Patient Disposition: Home, Self-Care Chief Complaint: Abdominal Pain Prescriptions Prescriptions: No Action coenzyme Q10 [Co Q-10] 100 mg capsule 100 mg PO BID metoprolol tartrate 25 mg tablet 25 mg PO BID Qty: 60 2RF rosuvastatin 40 mg tablet 40 mg PO QHS Qty: 90 3RF (DME) lancets [OneTouch UltraSoft Lancets] [facility] [place] Rx Instructions .Route Qty: 100 3RF Rx Instructions: check glucose 1 time per day (DME) OneTouch Ultra Test Strip See Rx Instructions .Route Qty: 100 3RF Rx Instructions: check glucose 1 time daily (DME) blood-glucose meter [OneTouch Ultra2 Meter] Misc See Rx Instructions .ROUTE .MEDSUPPLY Qty: 1 Rx Instructions: As directed valsartan 160 mg tablet 160 mg PO DAILY Qty: 90 3RF calcium carbonate 500 mg calcium (1,250 mg) tablet 1,000 mg PO DAILY Qty: 180 3RF cholecalciferol (vitamin D3) 1,250 mcg (50,000 unit) capsule See Rx Instructions .ROUTE .COMPLEX Qty: 12 2RF Dose Instruction: Take 1 capsule by mouth once a week Rx Instructions: Take 1 capsule by mouth once a week Zepbound 7.5 mg/0.5 mL pen injector 7.5 mg SQ WEEKLY Qty: 2 0RF Eliquis 5 mg tablet 5 mg PO BID Qty: 60 3RF Referrals Follow up/Referrals: Amanda Guevara APRN [Primary Care Provider] - See instructions Activity Restrictions/Add. Instructions Additional Instructions/Restrictions: Talk to family doctor about decreasing or discontinuing your GLP-1 agonist. Reglan every 6 hours to help stimulate GI emptying and facilitate improvement of pain. Call your family doctor to establish care for this visit to the emergency department and schedule follow-up within 48 hours to ensure improvement. If you have any worsening of your condition or any other concerning signs or symptoms, return to the emergency department or your primary care doctor for further evaluation. Continue taking your Eliquis as prescribed and follow-up with cardiology Clinical Impressions Clinical Impression: Gastroparesis, Abdominal pain Instructions Patient Instructions: DI for Acute Abdominal Pain Print Language Print Language: [place] Discharge ED Provider: Huy Gonzales General Adult HPI General Chief complaint: Abdominal Pain Stated complaint: abd pain upper back pain nausea diarrhea Time Seen by Provider: 07/30/24 08:39 Mode of Arrival: Ambulatory Source of Information: Patient Description of Symptoms (Recalled from ER Triage Doc. by RN): Patient reports upper abdomen and back pain that started Sunday after taking Zepbound. States that she hadn't taken it in over a month because it made her sick. History of Present Illness HPI narrative: Please note that above description of symptoms, in this electronic medical record under categorization of recalled from ER triage doctor by RN are reflective of an initial nursing assessment, however, is not reflective of my full history and physical exam that was personally taken and clarified. Consequentially, this preceding description of symptoms, which may include the patient's categorized chief complaint in the EMR, do not reflect my personal clinical impression, and the ultimate description of history of present illness and patient stated complaints should be deferred to this section of the note. Unless stated otherwise or congruent with this section of the note, additional signs, symptoms, or incongruence should be interpreted as inaccurate with my clinical impression. Related Data Home Medications ?Medication ?Instructions ?Recorded ?Confirmed blood-glucose meter ([employer] #1 ea 10/17/22 07/15/24 Ultra2 Meter) coenzyme Q10 100 mg capsule (Co 100 mg PO BID 11/19/23 07/15/24 Q-10) Previous Rx's ?Medication ?Instructions ?Recorded blood sugar diagnostic ([employer] #100 ea 07/18/22 Ultra Test strips) lancets ([employer] UltraSoft #100 ea 07/18/22 Lancets) calcium carbonate 1,000 mg (2 x 500 mg calcium 02/18/24 (1,250 mg)) PO DAILY #180 tabs cholecalciferol (vitamin D3) 1,250 See Rx Instructions .Route 04/13/24 mcg (50,000 unit) capsule .COMPLEX #12 caps valsartan 160 mg tablet 160 mg PO DAILY #90 tabs 04/16/24 rosuvastatin 40 mg tablet 40 mg PO QHS #90 tabs 05/14/24 tirzepatide (weight loss) 7.5 7.5 mg (0.5 mL) SQ WEEKLY #2 mL 06/22/24 mg/0.5 mL subcutaneous pen injector (Zepbound) metoprolol tartrate 25 mg tablet 25 mg PO BID #60 tabs 07/15/24 apixaban 5 mg tablet (Eliquis) 5 mg PO BID #60 tabs 07/16/24 Allergies Allergy/AdvReac Type Severity Reaction Status Date / Time No Known Allergies Allergy Verified 07/15/24 08:43 [facility] Disclaimer: The information contained in this section may have been updated after the patient was seen, as this information can be updated by other users. Medical History (Updated 07/30/24 @ 10:38 by Huy Gonzales MD) SVT (supraventricular tachycardia) Tachycardia Atypical chest pain Plantar fasciitis of right foot Equinus contracture of right ankle Pain in right foot Encounter for screening examination for sexually transmitted disease URI (upper respiratory infection) Pain of wrist after trauma Right wrist sprain Acute bronchitis Acute sinusitis Fatigue Constipation Screening for gonorrhea Screening for chlamydial disease BMI 36.0-36.9,adult Menopause Arthritis HTN (hypertension) Coronary artery disease Diastolic dysfunction Atypical angina Dyspnea Abnormal cardiovascular stress test Abnormal electrocardiography Palpitations Viral syndrome Surgical History History of partial hysterectomy Hx of tonsillectomy H/O tubal ligation History of cardiac cath Family History Father CHF (congestive heart failure) Mother Cancer lung Social History Smoking Status: Never smoker second hand exposure: No alcohol intake: never substance use type: denies use current occupational status: employed Travel in the last 8 weeks: None household members: spouse housing: house current occupational exposures/hazards: No caffeine: No Have you lived/traveled outside [place] in past 30 days?: No Contact w/someone who lives/traveled outside [place] past 30 days?: No Exposure to someone with infectious disease in past 14 days?: No Do you have a fever (greater than 100.4 F or 38 C)?: No Have you tested positive for COVID-19: No Exposed to someone with COVID-19 in past 14 days?: No Do you have a sore throat?: No Do you have a cough?: No Do you have any weakness?: Yes Do you have any diarrhea?: Yes Are you experiencing any unusual bleeding?: No Do you have any muscle aches/pain?: No Do you have any abdominal pain?: Yes Are you experiencing loss of taste or smell?: No Other Medical History Have you received the Flu Vaccine for this season: No Have you received the Pneumonia Vaccine: No ROS Obtained: Yes All systems reviewed & no additional complaints except as documented Physical Exam General General appearance: alert Head Head exam: atraumatic and normocephalic Eye Eye exam: Present normal appearance, PERRL and EOMI Neck Neck exam: Present normal inspection, full ROM and trachea midline Respiratory Respiratory exam: Absent respiratory distress, wheezes, stridor, accessory muscle use or prolonged expiratory phase Cardiovascular Cardiovascular exam: Present other (Pulses equal symmetric in upper and lower extremities) Abdominal Exam Abdominal exam: Present soft and distention; Absent tenderness, guarding, rebound, rigidity or pulsatile mass Extremities Exam Extremities exam: Absent edema Back Exam Back exam: Absent CVA tenderness (R) or CVA tenderness (L) Neurological Exam Neurological exam: Present alert, oriented X3 and CN II-XII intact; Absent motor sensory deficit Skin Skin exam: Present warm and dry; Absent diaphoresis or erythema Medical Decision Making Medical Records Medical records reviewed: Yes I reviewed the patient's medical records. Screening: Per USPSTF and CDC recommendations, given the prevalence of disease in our region, it is our hospital?s policy to screen for HIV and viral Hepatitis for all patients aged 18 and over and those with ongoing risk factors. Jose Alejandro Inquiry Pt receiving controlled substance: No Jose Alejandro was queried for this patient: No Vital Signs: 07/30/24 08:39 07/30/24 08:45 07/30/24 08:48 Temperature 97.8 F Temperature Source Oral Pulse Rate 49 L 79 Pulse Rate [Radial] 72 Respiratory Rate 18 Blood Pressure 131/89 117/95 H Blood Pressure [Right Arm] 131/89 Blood Pressure Mean [Right Arm] 103 Blood Pressure Source [Right Arm] Automatic Cuff Blood Pressure Position [Right Arm] Sitting 02 Sat by Pulse Oximetry 94 L 94 L 98 Oxygen Delivery Method Room Air Room Air 07/30/24 09:00 07/30/24 09:30 Temperature Temperature Source Pulse Rate 78 80 Pulse Rate [Radial] Respiratory Rate 21 Blood Pressure 116/75 109/75 L Blood Pressure [Right Arm] Blood Pressure Mean [Right Arm] Blood Pressure Source [Right Arm] Blood Pressure Position [Right Arm] 02 Sat by Pulse Oximetry 95 95 Oxygen Delivery Method Room Air Room Air Lab Data Lab Results 07/30/24 08:37: Urine Color Yellow, Urine Appearance Clear, Urine pH 5.5, Ur Specific [place] >= 1.030, Urine Protein 2+ A, Urine Glucose (UA) Negative, Urine Ketones Negative, Urine Blood 2+ A, Urine Nitrate Negative, Urine Bilirubin 2+ A, Urine Urobilinogen 1.0, Ur Leukocyte Esterase Negative, Urine RBC 3-5, Urine WBC 3-5, Ur Squamous Epith Cells 3-5, Urine Bacteria 1+, Urine Mucus 1+ 07/30/24 08:49: VBG pH 7.38, VBG pCO2 40.2, VBG pO2 44.2 H, VBG HCO3 23.1, VBG Total CO2 24.3, VBG O2 Saturation 81.0 H, VBG Base Excess -2.1, VBG Lactic Acid 2.1 H 07/30/24 08:53: WBC 11.1 H, RBC 5.01, Hgb 15.0, Hct 46.1, MCV 92.0, MCH 29.9, MCHC 32.5, RDW 12.8, Plt Count 360, MPV 11.4 H, Neut % (Auto) 69.3, Lymph % (Auto) 23.0, [place] % (Auto) 6.4, Eos % (Auto) 0.7, Baso % (Auto) 0.4, Neut # (Auto) 7.7, Lymph # (Auto) 2.6, [place] # (Auto) 0.7, Eos # (Auto) 0.1, Baso # (Auto) 0.0, PT 11.0, INR 0.98, APTT 29.6, Sodium 140, Potassium 4.0, Chloride 108 H, Carbon Dioxide 24, Anion Gap 12.0, BUN 11, Creatinine 1.00, Estimated Creat Clear 110, Estimated GFR 56 L, Est GFR ( Amer) 68, Glucose 143 H, Calcium 8.9, Magnesium 1.9, Total Bilirubin 0.9, AST 28, ALT 26, Alkaline Phosphatase 64, Troponin I < 0.01, Total Protein 7.6, Albumin 4.0, Globulin 3.6 H, Albumin/Globulin Ratio 1.1, Lipase 80 07/30/24 08:53 07/30/24 08:53 Orders (Tests/Meds): ED MEDICATIONS Discontinued Medications Generic Name Dose Route Start Last Admin Trade Name Freq PRN Reason Stop Dose Admin Sodium Chloride 1,000 mls @ 999 mls/hr 07/30/24 08:48 07/30/24 09:00 Sod Chlor 0.9% 1000ml Bag IV 07/30/24 09:48 999 mls/hr .Q1H1M ONE Administration Ketorolac Tromethamine 15 mg 07/30/24 08:48 07/30/24 08:59 Ketorolac 30mg/Ml Vial IV 07/30/24 08:49 15 mg ONCE ONE Administration Metoclopramide HCl 10 mg 07/30/24 08:48 07/30/24 08:59 Metoclopramide Hcl 10mg/2ml Vial IVP 07/30/24 08:49 10 mg ONCE ONE Administration ORDERS Category Date Time Status Complete Blood Count Auto Diff Stat Lab 07/30/24 08:53 Completed Comprehensive Metabolic Panel Stat Lab 07/30/24 08:53 Completed HIV Combo Stat Lab 07/30/24 08:53 Received Lipase Stat Lab 07/30/24 08:53 Completed Magnesium Stat Lab 07/30/24 08:53 Completed PT INR [Prothrombin Time INR] Stat Lab 07/30/24 08:53 Completed PTT [Activated Partial Thrombo Time] Stat Lab 07/30/24 08:53 Completed Troponin I Q3H Lab 07/30/24 12:00 Ordered Troponin I Q3H Lab 07/30/24 15:00 Ordered Troponin I Stat Lab 07/30/24 08:53 Completed UA [Urinalysis and Microscopic] Stat Lab 07/30/24 08:37 Completed Venous Blood Gas Stat RT 07/30/24 08:49 Completed Medical Decision Narrative: 63-year-old female history of high tension, high lipidemia,, type 2 diabetes, CAD, diastolic dysfunction presenting with epigastric pain. Patient states that she is on GLP-1 agonist injection. She increased her dose 4 days prior to this visit and since that time, started developing epigastric pain. She states its epigastric pain, radiates around to her back along the left side of her abdomen. Nausea without vomiting and decreased appetite. States that she has had 2 episodes of loose stool that were nonbloody, non-mucousy. No fevers, chills, night sweats. No urinary symptom. Has not taken anything for the pain or noticed anything that makes it any better or worse. Is currently mild to moderate in intensity and makes her feel bloated. History was obtained via conversation with patient. On arrival, patient hemodynamically stable, alert, oriented x4, appropriate, GCS 15, moving all extremities spontaneously, pupils equal and reactive to light. Full physical exam performed and significant for well-appearing female in no acute distress. No abdominal or flank tenderness elicited on my exam. Abdomen is distended, but nontender, no peritoneal signs. Normotensive and nontachycardic. Differential includes PUD, gastritis, enteritis, gastroenteritis, pancreatitis, SBO, colitis, diverticulitis, nephrolithiasis, UTI, cholecystitis, choledocholithiasis, appendicitis, torsion, hepatitis, aortic pathology, mesenteric ischemia among others. Patient placed on continuous cardiac monitoring and continuous pulse ox with initial blood pressure 131/89, heart rate 72, saturation 98% on room air. Independent interpretation of EKG shows what appears to be atrial flutter versus A-fib with an average rate around 112 with QRS 134, QTc 435. Right bundle branch block morphology. T wave inversions in V5, V6, 1 and aVL. patient was given Reglan and fluids for symptomatic management and correction of underlying abnormalities. Workup independently interpreted and significant for nonactionable hematologic labs. Urinalysis negative. CT scanning of the abdomen and pelvis was considered given patient's moderate symptoms, distention, however on reevaluation, patient states she is feeling much better, currently asymptomatic after fluids and Reglan and abdomen is benign. Not deemed necessary for these reasons as well as negative workup. Repeat EKG independently interpreted, atrial fibrillation 93 bpm with QRS 145, QTc 448, what appears to be right bundle branch block. No obvious acute ischemic change. Given patient presentation, workup, history, this most likely represents gastroparesis in the setting of increased dose of GLP-1 agonist. Patient also states that she was recently diagnosed with atrial fibrillation after wearing electronic device monitor currently on Eliquis. Because patient at baseline without signs or symptoms of clinical decompensation, deemed appropriate for discharge. Results were relayed to patient who voiced understanding and were agreeable to outpatient management and follow up. I discussed my clinical impression with patient and answered all questions. At this time, the evidence for any other entities in the differential is insufficient to warrant any further testing or ED observation. This was explained as well. Advisory was given that persistent or worsening symptoms require further evaluation. I confirmed the understanding of this discussion. [employer] disclaimer Much of this encounter note is an electronic press department manager spoken language to printed text. Electronic press department manager of the spoken language may permit errors. Although I have reviewed the note, some errors may still exist. Critical Care Critical Care Time Critical Care Time: No
[2024-07-30 09:04] LABS: VBG Base Excess -2.1 mmol/L (-2.4-2.3); VBG HCO3 23.1 mmol/L (23-30); VBG PCO2 40.2 mmol/L (35-51); VBG PH 7.38 mmol/L (7.31-7.41); VBG PO2 44.2 mmol/L (28-40); VBG Total CO2 24.3 mmol/L (23-27)
[2024-07-30 09:06] LABS: Lactate Venous 2.1 mmol/L (0.4-2.0)
[2024-07-30 09:10] LABS: Chloride 108 mmol/L (98-107); Sodium 140 mmol/L (136-145)
[2024-07-30 09:13] LABS: Alanine Aminotransferase 26 U/L (12-78); Albumin/Globulin Ratio 1.1 (1.1-1.8); Alkaline Phosphatase 64 U/L (38-126); Aspartate Amino Transferase 28 U/L (14-36); Bilirubin,Total 0.9 mg/dl (0.2-1.3); Blood Urea Nitrogen 11 mg/dl (7-17); Calcium 8.9 mg/dl (8.4-10.2); Carbon Dioxide 24 mmol/L (22.0-30.0); Creatinine Clearance Estimated 110 mL/min (50-200); Estimated Glomerular Filt Rate 56 ml/min (>60); GFR (African American) 68 ML/MIN (>60); Globulin 3.6 g/dL (1.3-3.2); Glucose 143 mg/dl (74-100); Lipase 80 U/L (23-300); Magnesium 1.9 mg/dl (1.6-2.3); Total Protein,Serum 7.6 g/dl (6.3-8.2)
[2024-07-30 09:15] LABS: Activated Partial Thrombo Time 29.6 seconds (22.8-30.6); INR 0.98 (0.9-1.1)
[2024-07-30 09:44] LABS: Troponin I < 0.01 ng/ml (0.00-0.034)
--- NOTE | 2024-07-30 10:04 | ECG_ITS ---
APPROVED REPORT Exam: Resting ECG HR:93 bpm ECG Measurements Heart Rate 93 AXES QRSd 145 QRS 52 QT 398 T 91 QTc 448 Conclusion Atrial fibrillation Right bundle branch block Electronically signed by : ATTILA DE LOS SANTOS, 07/31/2024 07:18:32
[2024-07-30 13:06] LABS: Reflex Lactic Add Lactic Reflex
[2024-07-31 11:09] LABS: HIV Combo NEGATIVE (Negative)
== END 2024-07-30 10:48 | disposition home or self-care (01) ==
PROVIDERS: Emergency Provider Emergency Medicine; PCP Nurse Practitioner Family
DX: K31.84 Gastroparesis (principal); R10.11 Right upper quadrant pain; I48.91 Unspecified atrial fibrillation; I45.10 Unspecified right bundle-branch block; Z11.4 Encounter for screening for human immunodeficiency virus [HIV]
CPT/HCPCS: 80053; 81001; 82803; 83690; 83735; 84484; 85025; 85610; 85730; 87389; 93005; 96361; 96374; 96375; 99285; J1885; J2765; J7030

== ENCOUNTER 2024-07-31 12:14 | Inpatient (IN) | payer BC, SELFPAY ==
[2024-07-31] VITALS (7 sets, daily range): BP systolic 109–147; BP diastolic 49–90; PULSE 57–87; RESP 18; TEMP 36.4–37.4; O2SAT 96–98; BMI 37.3
--- OUTSIDE RECORDS SUMMARY | 2024-07-31 12:38 | XMS_ITS | Data Portability ---
Author Organization [facility] SEGUNDO Villagomez COVENTRY CLOSED Address [address] [place] [address] Care Team Providers Care Engineering Agent Name Role Phone DENISE JAIN Primary Care Provider Assessment No assessment recorded. Plan of Treatment Reminders Order Date Submit Date Provider Last Modified By Organization Details Last Modified Time Details Appointments None recorded. Lab None recorded. Referral None recorded. Procedures None recorded. Surgeries None recorded. Imaging None recorded. Medication Orders metoprolol succinate ER 50 mg tablet,ext ended release 24 hr 2020 021 [facility] [place], [address], 1 10:57:48 metoprolol succinate ER 25 mg tablet,ext ended release 24 hr 2019 020 [facility] [address] [place], [address], 0 10:55:24 Patient TargetsNo targets recorded. Patient Instructions Encounter Date Encounter Id Patient Instructions Last Modified By Organization Details Last Modified Time 06/30/2019 [id number] palpitations: care instructions [email or web address] Not available 06/30/2019 10:55:09 12/29/2019 [id number] palpitations: care instructions [email or web address] Not available 12/29/2019 15:31:24 06/30/2020 [id number] palpitations: care instructions [email or web address] Not available 06/30/2020 10:57:41 Reason for Referral None Reported. Results Created Date Observation Date Name Description Value Unit Range Abnormal Flag Note LastModifiedBy Organization Detail LastModifiedTime 12/29/19 20 12/29/2019 T4, total , serum T4 (thyroxine) 8.59 ug/dL 4.50-1 1.70 normal Not Available [facility] [address] [place] [address], [phone], 12/29/2019 20:48:04 12/29/19 20 12/29/2019 TSH, serum or plasm a TSH 2.360 uIU/m L 0.290- 5.500 normal Not Available [facility] [address] [place] [address], [phone], 12/29/2019 20:53:24 Result Notes None recorded. Problems Name Problem SNOMED Code Status Onset Date Resolution Date Notes Provider Name and Address Organization Details Recorded Time Palpitatio ns 73109888 Active 2019 JESUS LIAO MD [address] [place] [address], [phone] , [facility] 0 14:30:42 Hypertensi ve disorder 24199452 Active 2020 JESUS LIAO MD [address] [place] [address], [phone] , [facility] 1 10:56:30 Right bundle branch block 52548071 Active 2015 From Automated Load;Provi da: Jesus Liao;Statu s: Active Not Available [facility] 6 06:14:54 Cardiomega ly 4821660 Active 2015 From Automated Load;Provi da: Jesus Liao;Statu s: Active Not Available [facility] 6 06:14:54 Problem Notes None recorded. Procedures Surgical History Date Name Laterality Status Provider Name and Address Organization Details Recorded Time hysterectomy completed [facility] 06/30/2019 09:23:49 tonsillectomy completed [facility] 06/30/2019 09:23:57 Imaging Results None recorded. Procedure Notes None recorded. Medical Equipment None Reported. Allergies No known drug allergies Medications Name Sig Start Date Stop Date Status Note LastModified by Organization Details LastModified Time metoprolol succinate ER 50 mg tablet,exten ded release 24 hr Take 1 tablet every day by oral route. 2020 active Not Available Not Available Not Avai lable estradiol 1 mg tablet Take 1 tablet every day by oral route. active Not Available Not Available No t Available metoprolol succinate ER 25 mg tablet,exten ded release 24 hr Take 1 tablet every day by oral route. 2019 active Not Available Not Available Not Avai lable Vitamin D 2000 units qd active Not Available Not Available No t Available metoprolol succinate 06/29 completed Not Available Not Available Not Available Vitals Date Recorded Body weight Body mass index (BMI) Body height Heart rate Systolic blood pressure Diastolic blood pressure Provider Name and Address Organization Details Last Updated DateTime 0 751570. 46 g 35.4 kg/m2 180.34 cm 71 /min 124 mm[Hg] 86 mm[Hg] [facility] 0 09:34:48 Date Recorded Body height Body mass index (BMI) Body weight Heart rate Systolic blood pressure Diastolic blood pressure Provider Name and Address Organization Details Last Updated DateTime 0 180.34 cm 36 kg/m2 103577. 83 g 73 /min 128 mm[Hg] 82 mm[Hg] [facility] 0 14:20:05 Date Recorded Body height Body mass index (BMI) Body weight Heart rate Systolic blood pressure Diastolic blood pressure Provider Name and Address Organization Details Last Updated DateTime 1 180.34 cm 36.7 kg/m2 901655. 79 g 92 /min 146 mm[Hg] 100 mm[Hg] [facility] 1 10:38:29 Social History Question Answer Notes LastModified by Organizat ion Details LastModified Time Tobacco Smoking Status Never Smoker [facility] 06/30/2019 09:21:29 What Is Your Level Of Alcohol Consumption? Occasional [email or web address] Information not available 06/30/2019 Do You Or Have You Ever Used E-cigarettes Or Vape? Never Used Electronic Cigarettes [email or web address] Information not available 06/30/2019 What Is Your Occupation? [employer] [email or web address] Information not available 06/30/2019 Live Alone Or With Others? With Others [email or web address] Information not available 06/30/2019 Marital Status [email or web address] Informatio n not available 06/30/2019 What Was The Date Of Your Most Recent Tobacco Screening? 06/30/2020 Information not available 06/30/2020 How Many Children Do You Have? 2 [email or web address] Information not available 06/30/2019 Do You Or Have You Ever Used Smokeless Tobacco? Never Used Smokeless Tobacco [email or web address] Information not available 06/30/2019 Sex: Unknown Functional Status None recorded. Mental Status None recorded. Family History Relationship Description Onset Age of this Age Resolved Age Notes LastModified by Organization Details LastModified Time Father Congestive heart failure Not available 2019 09:23:01 Unspecified Relation Chronic obstructive pulmonary disease [email or web address] Not available 2019 09:23:13 Unspecified Relation Hypertensive disorder [email or web address] Not available 2019 09:23:19 Unspecified Relation Diabetes mellitus [email or web address] Not available 2019 09:23:29 Unspecified Relation Family history of malignant neoplasm [email or web address] Not available 2019 09:23:38 Medical History No medical history recorded. Gynecological HistoryNo gynecological history recorded. Obstetrics History GPAL:G 0 P 0 0 0 0 Past Encounters Encounter ID Performer Location Encounter Start Date Encounter Closed Date Diagnosis/Indication Diagnosis SNOMED-CT Code Diagnosis ICD10 Code Diagnosis Note [id number] JESUS LIAO MD CARDIOLOG Y [address] [place]AL[place],[address] [place] [phone] 06/30/2019 08:53:53 06/30/2019 11:00:06 Palpitations 64536339 R00.2 Her electrocar diogram showed only PACs without any significan t abnormalit ies. Since she feels better on metoprolol I suggest continuing this medication . These episodes been fairly infrequent ly if she has another episode I suggest a 21 day event recorder. I will reevaluate the patient in 6 months and certainly sooner if she has any symptoms.E lectronic prescripti on sent to patient's pharmacy. [id number] JESUS LIAO MD CARDIOLOG Y [address] [place],[address] [place] [address] 12/29/2019 14:04:05 12/29/2019 15:46:39 Palpitations 75120235 R00.2 Her electrocar diogram showed only PACs.She feels much better with carvedilol . Thyroid has not been checked and will be reassessed .She wishes to do without metoprolol but will continue for an additional 6 months. [id number] JESUS LIAO MD CARDIOLOG Y [address] [place] [address] 06/30/2020 10:07:06 06/30/2020 11:02:00 Palpitations 51065314 R00.2 Her electrocar diogram showed only PACs without any significan t abnormalit ies. Since she feels better on metoprolol I suggest continuing this medication . These episodes been fairly infrequent ly if she has another episode I suggest a 21 day event recorder. .Apolinar newton on sent to patient's pharmacy. Hypertensive disorder 38 603433 I10 I discussed the importance of salt restrictio n. Per FDA recommenda tions, I advise limit of 2000 -2400 mg daily of sodium. Increase sodium intake is often associated with worsening of hypertensi on and or heart failure.DA SH diet given.Will increase metoprolol succinate. Health Concerns Section Related Observation LastModified by Organization Detai ls LastModified Time None Recorded Concern Status LastModified by Organization Details LastModified Time None Recorded Advance Directives Directive None Recorded Payers Encounter Date Sequence Insurance Name Policy Number Policy De La Paz Covered Member ID De La Paz Member ID Guarantor Name 06/30/2019 1 [place] [id number] Yanely Dixon [id number] 31 Consuelo Dixon 12/29/2019 1 [place] [id number] Yanely Dixon [id number] Consuelo Dixon 06/30/2020 1 [place] [id number] Yanely Dixon [id number] Consuelo Dixon Notes Date Note Type Note Provider Name and Address Organization Details Recorded Time 06/30/2019 text/html WF/ evaluated 20 16 with NGXT and echo with no significant abnormalities. She now presents with [place] of [place] she awoke with sensation of tachycardia she presented to the emergency room for evaluation was dismissed after negative cardiac workup. She had a sensation of discomfort with her palpitations but was told that most likely this was related to gallbladder disease. She had another episode earlier June 2019 in which she felt sensation of palpitations. She was evaluated by her physician with EKG which only showed PACs and placed on metoprolol succinate and has had no further episodes.The patient denies typical angina, CHF, dyspnea, orthopnea, PND, syncope. JESUS LIAO MD [address] [place] [address], [phone], [facility] 06/30/2019 10:55:12 12/29/2019 text/html WF/ 2016: NGXT a nd echo OK. ER visit in May 2019, awoke with sensation of tachycardia was dismissed after negative cardiac workup. She had a sensation of discomfort with her palpitations but was told that most likely this was related to gallbladder disease. Episode early June 2019 with palpitations. She was evaluated by her physician with EKG which only showed PACs and placed on metoprolol succinate and has had no further episodes.The patient denies typical angina, CHF, dyspnea, orthopnea, PND, syncope. JESUS LIAO MD [address] [place] [address], [phone], [facility] 12/29/2019 15:31:27 06/30/2020 text/html WF/ evaluated 20 16 with NGXT and echo with no significant abnormalities. She now presents with history of an emergency room visit in May 2019 when she awoke with sensation of tachycardia she presented to the emergency room for evaluation was dismissed after negative cardiac workup. She had a sensation of discomfort with her palpitations but was told that most likely this was related to gallbladder disease. She had another episode earlier June 2019 in which she felt sensation of palpitations. She was evaluated by her physician with EKG which only showed PACs and placed on metoprolol succinate and has had no further episodes.The patient denies typical angina, CHF, dyspnea, orthopnea, PND, syncope. She does not check her blood pressure home and does not restrict salt. JESUS LIAO MD [address] [place] [address] [place], [phone], [facility] 06/30/2020 10:57:44 OBGyn Episode No OBEpisode recorded.
--- NOTE | 2024-07-31 12:50 | CT_ITS ---
FINAL REPORT TECHNIQUE: Thin section axial images are obtained through the abdomen and pelvis after intravenous contrast. Reconstruction images were obtained from the axial data. Exam was performed using dose reduction techniques. This study was performed with techniques to keep radiation doses as low as reasonably achievable (ALARA). Individualized dose reduction techniques using automated exposure control or adjustment of mA and/or kV according to the patient's size were employed. CLINICAL HISTORY: severe abd pain, epigastric COMPARISON: None FINDINGS: LUNG BASES: There is a 5 mm right lower lobe noncalcified nodule, best seen on image #18 of series 2. Heart size is normal. LIVER: Homogeneous. Mild intrahepatic biliary ductal dilatation is present. GALLBLADDER/BILIARY SYSTEM: Mild gallbladder wall thickening is noted. No gallstones. Mild extrahepatic biliary ductal dilatation is present as well, with no stones identified in the common bile duct. SPLEEN: Unremarkable. PANCREAS: Unremarkable. ADRENALS: The right adrenal is unremarkable. There is a left adrenal nodule present, measuring 27 mm in size, which is not an adenoma by strict criteria. KIDNEYS/URETERS/BLADDER: No hydronephrosis, renal mass, or renal stone. Unremarkable urinary bladder. GI TRACT: No small bowel obstruction or dilatation. Normal appendix. No acute colon abnormality. PELVIC ORGANS: The uterus is absent. LYMPH NODES/RETROPERITONEUM/MESENTERY: No lymphadenopathy. No abdominal aortic aneurysm. ABDOMINAL WALL: The abdominal wall is intact. FREE FLUID: No ascites. BONES: No acute osseous abnormality. IMPRESSION: Probable mild gallbladder wall thickening with biliary ductal dilatation. No gallstones are noted. Cholecystitis is not excluded. Recommend correlation with laboratory studies and ultrasound. 5 mm right lower lobe nodule, noncalcified. Recommend 6 to 12-month follow-up CT chest for further evaluation. Reviewed, Interpreted and Dictated by Chika Ingram MD Transcribed by Clara Estevez Authenticated and . [facility]
--- NOTE | 2024-07-31 12:50 | ED_ITS ---
Discharge Plan Disposition Patient Disposition: Admitted Clinical Impressions Clinical Impression: Elevated LFTs, Acute epigastric pain, Common bile duct dilation Discharge ED Provider: Huy Gonzales General Adult HPI General Chief complaint: Abdominal Pain Stated complaint: back pain, nausea, abd pain Time Seen by Provider: 07/31/24 12:35 Mode of Arrival: Ambulatory Source of Information: Patient Description of Symptoms (Recalled from ER Triage Doc. by RN): Pt presents with c/o continuing abdominal pain, back pain and nausea. Pt reports she has had the pain since sunday. rates it as a 10 History of Present Illness HPI narrative: Please note that above description of symptoms, in this electronic medical record under categorization of recalled from ER triage doctor by RN are reflective of an initial nursing assessment, however, is not reflective of my full history and physical exam that was personally taken and clarified. Consequentially, this preceding description of symptoms, which may include the patient's categorized chief complaint in the EMR, do not reflect my personal clinical impression, and the ultimate description of history of present illness and patient stated complaints should be deferred to this section of the note. Unless stated otherwise or congruent with this section of the note, additional signs, symptoms, or incongruence should be interpreted as inaccurate with my clinical impression. Related Data Home Medications ?Medication ?Instructions ?Recorded ?Confirmed blood-glucose meter ([employer] ServicesTouch #1 ea 10/17/22 07/31/24 Ultra2 Meter) coenzyme Q10 100 mg capsule (Co 100 mg PO BID 11/19/23 07/31/24 Q-10) cholecalciferol (vitamin D3) 1,250 1,250 mcg PO WEEKLY 07/31/24 07/31/24 mcg (50,000 unit) capsule metoclopramide HCl 10 mg tablet 10 mg PO Q6HP PRN nausea and 07/31/24 07/31/24 (Reglan) vomiting rosuvastatin 40 mg tablet 40 mg PO HS 07/31/24 07/31/24 Previous Rx's ?Medication ?Instructions ?Recorded blood sugar diagnostic ([employer] ServicesTouch #100 ea 07/18/22 Ultra Test strips) lancets ([employer]Touch UltraSoft #100 ea 07/18/22 Lancets) calcium carbonate 1,000 mg (2 x 500 mg calcium 02/18/24 (1,250 mg)) PO DAILY #180 tabs valsartan 160 mg tablet 160 mg PO DAILY #90 tabs 04/16/24 tirzepatide (weight loss) 7.5 7.5 mg (0.5 mL) SQ WEEKLY #2 mL 06/22/24 mg/0.5 mL subcutaneous pen injector (Zepbound) metoprolol tartrate 25 mg tablet 25 mg PO BID #60 tabs 07/15/24 apixaban 5 mg tablet (Eliquis) 5 mg PO BID #60 tabs 07/16/24 Allergies Allergy/AdvReac Type Severity Reaction Status Date / Time No Known Allergies Allergy Verified 07/31/24 13:19 [facility] Disclaimer: The information contained in this section may have been updated after the patient was seen, as this information can be updated by other users. Medical History (Updated 07/31/24 @ 15:28 by Huy Gonzales MD) SVT (supraventricular tachycardia) Tachycardia Atypical chest pain Plantar fasciitis of right foot Equinus contracture of right ankle Pain in right foot Encounter for screening examination for sexually transmitted disease URI (upper respiratory infection) Pain of wrist after trauma Right wrist sprain Acute bronchitis Acute sinusitis Fatigue Constipation Screening for gonorrhea Screening for chlamydial disease BMI 36.0-36.9,adult Menopause Arthritis HTN (hypertension) Coronary artery disease Diastolic dysfunction Atypical angina Dyspnea Abnormal cardiovascular stress test Abnormal electrocardiography Palpitations Viral syndrome Surgical History History of partial hysterectomy Hx of tonsillectomy H/O tubal ligation History of cardiac cath Family History Father CHF (congestive heart failure) Mother Cancer lung Social History Smoking Status: Never smoker second hand exposure: No alcohol intake: never substance use type: denies use current occupational status: employed Travel in the last 8 weeks: None household members: spouse housing: house current occupational exposures/hazards: No caffeine: No Have you lived/traveled outside US in past 30 days?: No Contact w/someone who lives/traveled outside US past 30 days?: No Exposure to someone with infectious disease in past 14 days?: No Do you have a fever (greater than 100.4 F or 38 C)?: No Have you tested positive for COVID-19: No Exposed to someone with COVID-19 in past 14 days?: No Do you have a sore throat?: No Do you have a cough?: No Do you have any weakness?: No Do you have any diarrhea?: No Are you experiencing any unusual bleeding?: No Do you have any muscle aches/pain?: No Do you have any abdominal pain?: Yes Are you experiencing loss of taste or smell?: No Other Medical History Have you received the Flu Vaccine for this season: No Have you received the Pneumonia Vaccine: No ROS Obtained: Yes All systems reviewed & no additional complaints except as documented Physical Exam General General appearance: alert Head Head exam: atraumatic and normocephalic Eye Eye exam: Present normal appearance, PERRL and EOMI Neck Neck exam: Present normal inspection, full ROM and trachea midline Respiratory Respiratory exam: Absent respiratory distress, wheezes, stridor, accessory muscle use or prolonged expiratory phase Cardiovascular Cardiovascular exam: Present other (Pulses equal symmetric in upper and lower extremities) Abdominal Exam Abdominal exam: Present soft; Absent distention, tenderness or pulsatile mass Extremities Exam Extremities exam: Absent edema Neurological Exam Neurological exam: Present alert, oriented X3 and CN II-XII intact; Absent motor sensory deficit Skin Skin exam: Present warm and dry; Absent diaphoresis or erythema Medical Decision Making Medical Records Medical records reviewed: Yes I reviewed the patient's medical records. Screening: Per USPSTF and CDC recommendations, given the prevalence of disease in our region, it is our hospital?s policy to screen for HIV and viral Hepatitis for all patients aged 18 and over and those with ongoing risk factors. Jose Alejandro Inquiry Pt receiving controlled substance: No Jose Alejandro was queried for this patient: No Vital Signs: 07/31/24 12:42 07/31/24 13:00 07/31/24 13:30 Temperature 97.5 F L Temperature Source Oral Pulse Rate 62 83 Pulse Rate [Right] 87 Respiratory Rate 18 Blood Pressure 130/82 123/87 Blood Pressure [Right Arm] 130/86 Blood Pressure Mean [Right Arm] 100 Blood Pressure Source [Right Arm] Automatic Cuff Blood Pressure Position [Right Arm] Sitting 02 Sat by Pulse Oximetry 97 96 97 Oxygen Delivery Method Room Air 07/31/24 14:00 07/31/24 15:10 Temperature 99.3 F Temperature Source Oral Pulse Rate 82 Pulse Rate [Right] 73 Respiratory Rate 18 Blood Pressure 142/90 H Blood Pressure [Right Arm] 132/77 Blood Pressure Mean [Right Arm] 95 Blood Pressure Source [Right Arm] Automatic Cuff Blood Pressure Position [Right Arm] 02 Sat by Pulse Oximetry 98 97 Oxygen Delivery Method Room Air Lab Data Lab Results 07/31/24 12:45: WBC 7.2 D, RBC 4.47, Hgb 13.5, Hct 41.8, MCV 93.5, MCH 30.2, MCHC 32.3, RDW 12.8, Plt Count 285, MPV 11.5 H, Neut % (Auto) 62.8, Lymph % (Auto) 26.7, Butts % (Auto) 8.8, Eos % (Auto) 1.0, Baso % (Auto) 0.4, Neut # (Auto) 4.5, Lymph # (Auto) 1.9, Butts # (Auto) 0.6, Eos # (Auto) 0.1, Baso # (Auto) 0.0, Sodium 140, Potassium 3.9, Chloride 109 H, Carbon Dioxide 27, Anion Gap 7.9, BUN 9, Creatinine 0.90, Estimated Creat Clear 110, Estimated GFR 64, Est GFR ( Amer) 77, Glucose 112 H, Calcium 8.5, Total Bilirubin 1.4 H, A ST 217 H D, ALT 98 H D, Alkaline Phosphatase 78, Troponin I < 0.01, Total Protein 7.2, Albumin 3.7, Globulin 3.5 H, Albumin/Globulin Ratio 1.1, Lipase 117 07/31/24 12:45 07/31/24 12:45 Orders (Tests/Meds): ED MEDICATIONS Discontinued Medications Generic Name Dose Route Start Last Admin Trade Name Freq PRN Reason Stop Dose Admin Lactated Ringer's 1,000 mls @ 999 mls/hr 07/31/24 12:50 07/31/24 13:01 Lactated Ringer's 1000 Ml Bag IV 07/31/24 13:50 999 mls/hr .Q1H1M ONE Administration Iopamidol 75 ml 07/31/24 13:15 07/31/24 13:16 Iopamidol-370 (76%);100ml Bottle IV 07/31/24 13:16 75 ml ONCE ONE Administration Ketorolac Tromethamine 15 mg 07/31/24 14:06 07/31/24 14:13 Ketorolac 30mg/Ml Vial IV 07/31/24 14:07 15 mg ONCE ONE Administration Metoclopramide HCl 10 mg 07/31/24 12:50 07/31/24 13:01 Metoclopramide Hcl 10mg/2ml Vial IVP 07/31/24 12:51 10 mg ONCE ONE Administration Morphine Sulfate 4 mg 07/31/24 14:06 07/31/24 14:13 Morphine 4mg/Ml Syringe IV 07/31/24 14:07 4 mg ONCE ONE Administration Ondansetron HCl 4 mg 07/31/24 14:34 07/31/24 14:38 Ondansetron 4mg/2ml Vial IV 07/31/24 14:35 4 mg ONCE ONE Administration Sodium Chloride 10 ml 07/31/24 13:15 07/31/24 13:16 Sodium Chloride 0.9% 10ml Syr (Rad Only) IV 07/31/24 13:16 10 ml ONCE ONE Administration ORDERS Category Date Time Status CT abdomen pelvis w con Stat Cat Scan 07/31/24 12:50 Completed GI consult [Consult to Gastroenterology] [CONS] Routine Cons 07/31/24 14:24 Active POCUS Point of Care (ER Only) Stat Exams 07/31/24 13:02 Completed US abdomen limited Stat Exams 07/31/24 14:04 Taken CBC w/Auto Diff [Complete Blood Count Auto Diff] Stat Lab 07/31/24 12:45 Completed CMP [Comprehensive Metabolic Panel] Stat Lab 07/31/24 12:45 Completed Complete Blood Count Auto Diff AMLAB Lab 08/01/24 06:00 Ordered Comprehensive Metabolic Panel AMLAB Lab 08/01/24 06:00 Ordered Lipase Stat Lab 07/31/24 12:45 Completed Magnesium AMLAB Lab 08/01/24 06:00 Ordered Trop I [Troponin I] Stat Lab 07/31/24 12:45 Completed Troponin I Q3H Lab 07/31/24 16:00 Ordered Troponin I Q3H Lab 07/31/24 19:00 Ordered Medical Decision Narrative: 63-year-old female hypertension, hyperlipidemia, CAD, type 2 diabetes on GLP-1 agonist treatment (increased dose just a couple days ago) presenting with epigastric and back pain. She presented yesterday, 07/30 for the same exact thing. I saw her, sent her home after complete symptomatic improvement with fluids and Reglan. Attributed to gastroparesis and medication side effect at that time. States that she was taking Reglan [id number] having set a timer every 6 hours, then this morning, 07/31, around 6 AM hit with a wave of pain all this again. She states that she had a eaten a small piece of cake a couple hours prior, but otherwise had not had anything on her stomach for about 12 hours. No chest pain, shortness of breath. Pain is moderate to severe in intensity when it flares up, radiates through to her back. When not flaring up, mild epigastric pain. No vomiting. History was obtained via conversation with patient and chart review. On arrival, patient hemodynamically stable, alert, oriented x4, appropriate, GCS 15, moving all extremities spontaneously, pupils equal and reactive to light. Full physical exam performed and significant for well-appearing female no acute distress. Abdomen is soft, nondistended, nontender on my exam, but states that it feels deeper. Elmore sign negative. Cardiopulmonary exam normal. Differential includes medication side effect, gastroparesis, PUD, gastritis, enteritis, gastroenteritis, pancreatitis, SBO, colitis, diverticulitis, nephrolithiasis, UTI, cholecystitis, choledocholithiasis, appendicitis, torsion, hepatitis, aortic pathology, mesenteric ischemia among others Patient placed on continuous cardiac monitoring and continuous pulse ox with initial blood pressure 130/86, heart rate 87, saturation 97% on room air. Bedside [id number] ultrasound performed, patient has cholelithiasis without secondary signs of cholecystitis. Difficult windows to identify common bile duct. Patient was given Reglan and fluids for symptomatic management and correction of underlying abnormalities. Workup independently interpreted and significant for nonactionable CBC. Chemistry with newly elevated LFTs as compared to yesterday including mildly elevated bilirubin at 1.4,AST and ALT. Alkaline phosphatase normal. On independent interpretation of imaging, patient appears to have dilated intrahepatic and extrahepatic bile ducts. See radiology read for full review of final results. On reevaluation, patient's pain mildly improved, but not much. Given Toradol and morphine. Gastroenterology was contacted and case was discussed, agrees that she likely needs ERCP given findings. Formal ultrasound was ordered. Hospitalist was contacted and case was discussed at length, to be admitted for preoperative management prior to ERCP. Because patient high risk for clinical decompensation, deemed appropriate for inpatient admission. Results were relayed to patient who voiced understanding and patient was agreeable to inpatient admission and management. Patient was admitted to the hospital for further definitive management. Optical Assistant disclaimer Much of this encounter note is an electronic elementary school music teacher spoken language to printed text. Electronic elementary school music teacher of the spoken language may permit errors. Although I have reviewed the note, some errors may still exist. Procedures Limited Ultrasound Indication:: Limited RUQ ultrasound Indication: Abdominal pain, nausea Identified structures: -Gallbladder -Gallbladder wall -Common bile duct -Liver Findings: Sonographic Elmore sign: Absent Gallstones: Present Sludge: Absent Pericholecystic fluid: Absent Maximal GB wall thickness (mm) (normal is </= 3mm): Normal Common bile duct width (mm) (normal is </= 6mm): Unable to visualize Gallbladder width (cm) (normal is < 4cm): Normal Gallbladder length (cm) (normal is < 10cm): Normal Impression: Lithiasis without signs of cholecystitis Images were saved to permanent archive The study was technically adequate CPT 51085-92 This study was performed by me, and I personally interpreted all images/videos. Based on my clinical judgement, these images necessitated further imaging. Critical Care Critical Care Time Critical Care Time: No
[2024-07-31 12:57] LABS: Basophils % 0.4 % (0.1-2.0); Eosinophils # 0.1 Kmm3 (0.0-0.4); Hematocrit 41.8 % (37.0-47.0); Hemoglobin 13.5 g/dL (12.2-16.2); Lymphocytes # 1.9 K/mm3 (0.7-4.5); Lymphocytes % 26.7 % (10-50); Mean Corpuscular HGB Conc 32.3 g/dL (31.8-35.4); Mean Corpuscular Hemoglobin 30.2 pg (27.0-31.2); Mean Corpuscular Volume 93.5 fl (81-99); Mean Platelet Volume 11.5 fl (7.4-10.4); Monocytes # 0.6 K/mm3 (0.1-1.0); Monocytes % 8.8 % (1.7-9.3); Neutrophils # 4.5 K/mm3 (1.8-7.8); Neutrophils % 62.8 % (37.0-80.0); Nucleated Red Blood Cells # 0 10^3/uL; Nucleated Red Blood Cells % 0 %; Platelet Count 285 K/mm3 (142-424); Red Blood Count 4.47 M/mm3 (4.20-5.40); Red Cell Distribution Width 12.8 % (11.5-17.5); Red Cell Distribution Width-SD 43.7 fL; White Blood Count 7.2 K/mm3 (4.8-10.8)
[2024-07-31 13:00] LABS: Albumin Level 3.7 g/dl (3.5-5.0); Chloride 109 mmol/L (98-107); Potassium 3.9 mmoL/L (3.5-5.1); Sodium 140 mmol/L (136-145)
[2024-07-31] MEDS: LACTATED RINGERS 1000ML 1,000 ML 999 ML IV (13:01)
[2024-07-31] MEDS: METOCLOPRAMIDE HCL 10MG/2ML VIAL 10 MG IVP (13:01)
[2024-07-31 13:02] LABS: Alanine Aminotransferase 98 U/L (12-78); Alkaline Phosphatase 78 U/L (38-126); Anion Gap 7.9 mEq/L (5-15); Aspartate Amino Transferase 217 U/L (14-36); Bilirubin,Total 1.4 mg/dl (0.2-1.3); Blood Urea Nitrogen 9 mg/dl (7-17); Carbon Dioxide 27 mmol/L (22.0-30.0); Creatinine Clearance Estimated 110 mL/min (50-200); Estimated Glomerular Filt Rate 64 ml/min (>60); GFR (African American) 77 ML/MIN (>60)
[2024-07-31 13:03] LABS: Albumin/Globulin Ratio 1.1 (1.1-1.8); Calcium 8.5 mg/dl (8.4-10.2); Globulin 3.5 g/dL (1.3-3.2); Glucose 112 mg/dl (74-100); Lipase 117 U/L (23-300); Total Protein,Serum 7.2 g/dl (6.3-8.2)
[2024-07-31] MEDS: IOPAMIDOL-370 (76%);100ML BOTTLE 75 ML IV (13:16)
[2024-07-31] MEDS: SODIUM CHLORIDE 0.9% 10ML SYR (RAD ONLY) 10 ML IV (13:16)
[2024-07-31 13:18] LABS: Troponin I < 0.01 ng/ml (0.00-0.034)
--- NOTE | 2024-07-31 14:04 | US_ITS ---
FINAL REPORT TECHNIQUE: Sonographic images of the right upper quadrant were obtained. CLINICAL HISTORY: RUQ pain and elevated LFT COMPARISON: None FINDINGS: PANCREAS: Unremarkable. LIVER: There is fatty infiltration of the liver. No focal hepatic lesion. The portal vein is patent with normal directional flow. GALLBLADDER: There are gallstones noted. There is mild gallbladder wall thickening. COMMON DUCT: 8 mm, which is dilated. RIGHT KIDNEY: The right kidney measures 13.2 cm. There is no hydronephrosis, mass, or stone. FREE FLUID: None. IMPRESSION: Fatty liver. Gallstones with mild gallbladder wall thickening and common duct dilatation, cholecystitis not excluded. Reviewed, Interpreted and Dictated by Chika Ingram MD Transcribed by Ginny Reilly Authenticated and . [facility]
[2024-07-31] MEDS: KETOROLAC 30MG/ML VIAL 15 MG IV (14:13)
[2024-07-31] MEDS: MORPHINE 4MG/ML SYRINGE 4 MG IV (14:13)
--- NOTE | 2024-07-31 14:21 | PC.NURSE ---
pt to u/s via wheelchair
[2024-07-31] MEDS: ONDANSETRON 4MG/2ML VIAL 4 MG IV (14:38)
--- NOTE | 2024-07-31 14:42 | EXP.HP ---
History of Present Illness *Admission Date: 07/31/24 *Reason for visit:: Abdominal pain, nausea *History of present illness: Ms. Dixon is a 63-year-old female who initially presented to the ER yesterday due to onset of abdominal pain that had began on Sunday. She was treated and discharged home with improvement in symptoms. Mehnaz presented today due to worsening onset of pain and nausea in her upper abdomen. Followed by dyspepsia. Denies shortness of breath or chest pain. No bradley emesis or diarrhea. Labs obtained on presentation yesterday were essentially normal. Today however repeat labs showed concern for elevated bilirubin at 1.4, AST of 217, alk phos of 98. Lipase 117. Kidney function normal with BUN 9, creatinine 0.9. CT of abdomen obtained showing significant distention of common bile duct at approximately 12 mm. Also some mild gallbladder wall thickening. Given concern for common bile duct obstruction/biliary dilatation, medicine consulted for admission and further management along with GI. On arrival to the floor, still having some pain but improved. Stable on room air. Afebrile. No other acute complaints. [facility] Disclaimer: The information contained in this section may have been updated after the patient was seen, as this information can be updated by other users. Medical History SVT (supraventricular tachycardia) Tachycardia Atypical chest pain Plantar fasciitis of right foot Equinus contracture of right ankle Pain in right foot Encounter for screening examination for sexually transmitted disease URI (upper respiratory infection) Pain of wrist after trauma Right wrist sprain Acute bronchitis Acute sinusitis Fatigue Constipation Screening for gonorrhea Screening for chlamydial disease BMI 36.0-36.9,adult Menopause Arthritis HTN (hypertension) Coronary artery disease Diastolic dysfunction Atypical angina Dyspnea Abnormal cardiovascular stress test Abnormal electrocardiography Palpitations Viral syndrome Surgical History History of partial hysterectomy Hx of tonsillectomy H/O tubal ligation History of cardiac cath Family History Father CHF (congestive heart failure) Mother Cancer Social History Smoking Status: Never smoker second hand exposure: No alcohol intake: never substance use type: denies use current occupational status: employed Travel in the last 8 weeks: None household members: spouse housing: house current occupational exposures/hazards: No caffeine: No Have you lived/traveled outside [place] in past 30 days?: No Contact w/someone who lives/traveled outside US past 30 days?: No Exposure to someone with infectious disease in past 14 days?: No Do you have a fever (greater than 100.4 F or 38 C)?: No Have you tested positive for COVID-19: No Exposed to someone with COVID-19 in past 14 days?: No Do you have a sore throat?: No Do you have a cough?: No Do you have any weakness?: No Are you experiencing any nausea/vomitting?: No Do you have any diarrhea?: No Are you experiencing any unusual bleeding?: No Do you have any muscle aches/pain?: No Do you have any abdominal pain?: Yes Are you experiencing loss of taste or smell?: No Other Medical History Have you received the Flu Vaccine for this season: No Have you received the Pneumonia Vaccine: No Review of Systems Review of Systems Review of systems (narrative): 14 point review of systems performed, pertinent positives and negatives as per HPI Meds Home Medications and Allergies Home Medications ?Medication ?Instructions ?Recorded ?Confirmed ?Type blood sugar diagnostic (OneTouch #100 ea 07/18/22 07/31/24 Rx Ultra Test strips) lancets (OneTouch UltraSoft #100 ea 07/18/22 07/31/24 Rx Lancets) blood-glucose meter (OneTouch #1 ea 10/17/22 07/31/24 History Ultra2 Meter) coenzyme Q10 100 mg capsule (Co 100 mg PO BID 11/19/23 07/31/24 History Q-10) calcium carbonate 1,000 mg (2 x 500 mg calcium 02/18/24 07/31/24 Rx (1,250 mg)) PO DAILY #180 tabs valsartan 160 mg tablet 160 mg PO DAILY #90 tabs 04/16/24 07/31/24 Rx tirzepatide (weight loss) 7.5 7.5 mg (0.5 mL) SQ WEEKLY #2 mL 06/22/24 07/31/24 Rx mg/0.5 mL subcutaneous pen injector (Zepbound) metoprolol tartrate 25 mg tablet 25 mg PO BID #60 tabs 07/15/24 07/31/24 Rx apixaban 5 mg tablet (Eliquis) 5 mg PO BID #60 tabs 07/16/24 07/31/24 Rx cholecalciferol (vitamin D3) 1,250 1,250 mcg PO WEEKLY 07/31/24 07/31/24 History mcg (50,000 unit) capsule metoclopramide HCl 10 mg tablet 10 mg PO Q6HP PRN nausea and 07/31/24 07/31/24 History (Reglan) vomiting rosuvastatin 40 mg tablet 40 mg PO HS 07/31/24 07/31/24 History New Prescriptions to Start Prescriptions: Allergies Allergy/AdvReac Type Severity Reaction Status Date / Time No Known Allergies Allergy Verified 07/31/24 13:19 Exam Data for Last 24 hours Vital signs and Labs for Last 24 Hours: Temp Pulse Resp BP Pulse Ox O2 Del Method 97.5 F L 83 18 123/87 97 Room Air 07/31/24 12:42 07/31/24 13:30 07/31/24 12:42 07/31/24 13:30 07/31/24 13:30 07/31/24 12:42 Laboratory Results - last 24 hr 07/31/24 12:45: WBC 7.2 D, RBC 4.47, Hgb 13.5, Hct 41.8, MCV 93.5, MCH 30.2, MCHC 32.3, RDW 12.8, Plt Count 285, MPV 11.5 H, Neut % (Auto) 62.8, Lymph % (Auto) 26.7, Mayes % (Auto) 8.8, Eos % (Auto) 1.0, Baso % (Auto) 0.4, Neut # (Auto) 4.5, Lymph # (Auto) 1.9, Mayes # (Auto) 0.6, Eos # (Auto) 0.1, Baso # (Auto) 0.0, Sodium 140, Potassium 3.9, Chloride 109 H, Carbon Dioxide 27, Anion Gap 7.9, BUN 9, Creatinine 0.90, Estimated Creat Clear 110, Estimated GFR 64, Est GFR ( Amer) 77, Glucose 112 H, Calcium 8.5, Total Bilirubin 1.4 H, AST 217 H D, ALT 98 H D, Alkaline Phosphatase 78, Troponin I < 0.01, Total Protein 7.2, Albumin 3.7, Globulin 3.5 H, Albumin/Globulin Ratio 1.1, Lipase 117 I & O for Last 24 hours: Intake & Output 07/28/24 07/29/24 07/30/24 07/31/24 23:59 23:59 23:59 23:59 Weight 117.934 kg Constitutional Constitutional: no acute distress, obese and cooperative *Routine HEENT Exam Head: Present normocephalic Eye: Present EOMI and PERRL ENT: Present mucous membranes moist *Routine Neck Exam Neck: Present supple; Absent lymphadenopathy *Routine Respiratory Exam Respiratory: Present CTA bilaterally; Absent rhonchi, wheezes or crackles *Routine Cardiovascular Exam Cardiovascular: Present RRR *Routine Abdominal Exam Abdominal: Present soft, normoactive bowel sounds and tenderness (Predominantly epigastric); Absent distended *Routine Rectal Exam Rectal:: deferred *Routine Genitalia Exam Genitalia:: deferred *Routine Extremities Exam Extremities: Absent cyanosis, clubbing or edema *Routine Skin Exam Skin: Present intact and warm; Absent rash *Routine Neurological Exam Neurological: Present alert, oriented X3 and moving all extremities; Absent altered mental status Assessment and Plan *Assessment and plan (1) Choledocholithiasis: Status: Acute Category: Medical Code(s): K80.50 - Calculus of bile duct without cholangitis or cholecystitis without obstruction (2) Common bile duct dilation: Status: Acute Category: Medical Code(s): K83.8 - Other specified diseases of biliary tract (3) Diabetes mellitus type 2 in obese: Status: Acute Category: Medical Code(s): E11.69 - Type 2 diabetes mellitus with other specified complication; E66.9 - Obesity, unspecified (4) HTN (hypertension): Status: Acute Qualifiers: Hypertension type: primary hypertension Qualified Code(s): I10 - Essential (primary) hypertension Category: Medical Code(s): I10 - Essential (primary) hypertension (5) HLD (hyperlipidemia): Status: Chronic Qualifiers: Hyperlipidemia type: mixed hyperlipidemia Qualified Code(s): E78.2 - Mixed hyperlipidemia Category: Medical Code(s): E78.5 - Hyperlipidemia, unspecified (6) Atrial fibrillation: Status: Acute Category: Medical Code(s): I48.91 - Unspecified atrial fibrillation Plan 63-year-old female who presented with abdominal pain. Concern for common bile duct obstruction/CBD dilation on workup in the ED with elevation in transaminitis. Discussed case with ER physician, request admission for monitoring overnight and evaluation by GI in the morning with possible ERCP. I agreed to admit for further care. Hemodynamically stable. Morphine for pain at this time. Monitor for toxicity. Problems addressed as follows: Suspected choledocholithiasis Bile duct dilation -Patient is on GLP-1, may play a factor in her symptoms however cannot rule out common bile duct stone given appearance of obstruction on CT. Per my review, CBD measures 11 to 12 mm. Has biliary dilation into the liver. Gallbladder distended with thickening of the wall. No appreciable radiopaque stones. - Bili 1.4, AST 117, ALT 98, alk phos 78. Lipase 117. Repeat CBC, CMP, magnesium ordered for the morning - Discussed case with GI, recommend n.p.o. at midnight and plan for ERCP in the morning for removal of possible stone Diabetes: Continue fingersticks ACHS, hold tirzepatide, ordered A1c pending Continue valsartan 160 mg daily for hypertension Continue metoprolol tartrate 25 mg twice daily for A-fib Hold Eliquis in the set impending procedure Hold statin in the setting of elevated liver enzymes Full code Holding Eliquis due to procedure Clear liquids until midnight, n.p.o.
--- NOTE | 2024-07-31 14:42 | PC.NURSE ---
per er md patient is admitted per inna for cholelithiasis, spoke with house sup for bed assignment
--- NOTE | 2024-07-31 14:58 | PC.NURSE ---
care handoff report called to thor brito. pt pending transport.
--- NOTE | 2024-07-31 15:00 | HMH.PHAINT1 ---
Pharmacy Intervention Comments: MEDICATION RECONCILIATION COMPLETED ON PATIENT USING EXTERNAL FILL HISTORY FROM PHARMACY AND LIST FROM CARDIOLOGY OFFICE. -CHAVA PEREZ, CARMEND
[2024-07-31 17:06] LABS: POC Glucose,Bedside 87 (70-110)
--- NOTE | 2024-07-31 17:10 | P.CONS_ITS ---
History of Present Illness *Admission Date: 07/31/24 *Reason for visit:: Biliary colic *History of present illness: Mrs. Dixon is a 63-year-old female who was admitted today after having come to the emergency department yesterday for the same thing. The patient reports having the first onset of a dyspeptic attack 2 to 3 weeks ago and this lasted for a couple of hours. She did not see her physician. She did again present with abdominal pain yesterday and came to the ED. Labs were obtained yesterday and were essentially normal. Yesterday, her alkaline phosphatase 64, ALT 26, AST 28 and total bilirubin 0.9 were normal. Her lipase was 80. She did not have any imaging yesterday. She was given GI cocktail and improved and was sent home. She represented again today with the same complaints of midepigastric abdominal pain radiating around into her back. This began at 7:30 AM this morning and she came to the ED around 1230. This time, repeat labs showed a spike in biliary/liver chemistries. Today her AST 217, ALT 98 and total bilirubin 1.4 increased. Her lipase was still normal at 117. Imaging studies of the abdomen today with ultrasound showed gallstones with mild gallbladder wall thickening and common bile duct dilation with CBD 8 mm (normal less than 6 mm) CT scan of the abdomen also showed mild gallbladder wall thickening with biliary ductal dilation. The patient has noted some dark in urine but no acholic stools. She has had no fever. She has never had pancreatitis. The patient is very comfortable presently. [facility] Disclaimer: The information contained in this section may have been updated after the patient was seen, as this information can be updated by other users. Medical History (Updated 07/31/24 @ 17:17 by Naldo Gamboa II, MD) SVT (supraventricular tachycardia) Tachycardia Atypical chest pain Plantar fasciitis of right foot Equinus contracture of right ankle Pain in right foot Encounter for screening examination for sexually transmitted disease URI (upper respiratory infection) Pain of wrist after trauma Right wrist sprain Acute bronchitis Acute sinusitis Fatigue Constipation Screening for gonorrhea Screening for chlamydial disease BMI 36.0-36.9,adult Menopause Arthritis HTN (hypertension) Coronary artery disease Diastolic dysfunction Atypical angina Dyspnea Abnormal cardiovascular stress test Abnormal electrocardiography Palpitations Viral syndrome Surgical History History of partial hysterectomy Hx of tonsillectomy H/O tubal ligation History of cardiac cath Family History Father CHF (congestive heart failure) Mother Cancer lung Social History (Updated 07/31/24 @ 16:26 by Tuyet Edouard, RN) Smoking Status: Never smoker second hand exposure: No alcohol intake: never substance use type: denies use current occupational status: employed Travel in the last 8 weeks: None household members: spouse housing: house current occupational exposures/hazards: No caffeine: No Have you lived/traveled outside [place] in past 30 days?: No Contact w/someone who lives/traveled outside US past 30 days?: No Exposure to someone with infectious disease in past 14 days?: No Do you have a fever (greater than 100.4 F or 38 C)?: No Have you tested positive for COVID-19: No Exposed to someone with COVID-19 in past 14 days?: No Do you have a sore throat?: No Do you have a cough?: No Do you have any weakness?: No Are you experiencing any nausea/vomitting?: No Do you have any diarrhea?: No Are you experiencing any unusual bleeding?: No Do you have any muscle aches/pain?: No Do you have any abdominal pain?: Yes Are you experiencing loss of taste or smell?: No Meds Home Medications and Allergies Home Medications ?Medication ?Instructions ?Recorded ?Confirmed ?Type blood sugar diagnostic (OneTouch #100 ea 07/18/22 07/31/24 Rx Ultra Test strips) lancets (OneTouch UltraSoft #100 ea 07/18/22 07/31/24 Rx Lancets) blood-glucose meter (OneTouch #1 ea 10/17/22 07/31/24 History Ultra2 Meter) coenzyme Q10 100 mg capsule (Co 100 mg PO BID 11/19/23 07/31/24 History Q-10) calcium carbonate 1,000 mg (2 x 500 mg calcium 02/18/24 07/31/24 Rx (1,250 mg)) PO DAILY #180 tabs valsartan 160 mg tablet 160 mg PO DAILY #90 tabs 04/16/24 07/31/24 Rx tirzepatide (weight loss) 7.5 7.5 mg (0.5 mL) SQ WEEKLY #2 mL 06/22/24 07/31/24 Rx mg/0.5 mL subcutaneous pen injector (Zepbound) metoprolol tartrate 25 mg tablet 25 mg PO BID #60 tabs 07/15/24 07/31/24 Rx apixaban 5 mg tablet (Eliquis) 5 mg PO BID #60 tabs 07/16/24 07/31/24 Rx cholecalciferol (vitamin D3) 1,250 1,250 mcg PO WEEKLY 07/31/24 07/31/24 History mcg (50,000 unit) capsule metoclopramide HCl 10 mg tablet 10 mg PO Q6HP PRN nausea and 07/31/24 07/31/24 History (Reglan) vomiting rosuvastatin 40 mg tablet 40 mg PO HS 07/31/24 07/31/24 History New Prescriptions to Start Prescriptions: Allergies Allergy/AdvReac Type Severity Reaction Status Date / Time No Known Allergies Allergy Verified 07/31/24 13:19 Exam (Inpt) Vital signs and Labs for Last 24 Hours: Temp Pulse Resp BP Pulse Ox O2 Del Method 98.1 F 61 18 147/87 H 97 Room Air 07/31/24 15:34 07/31/24 15:34 07/31/24 15:34 07/31/24 15:34 07/31/24 15:10 07/31/24 15:34 Laboratory Results - last 24 hr 07/31/24 12:45: WBC 7.2 D, RBC 4.47, Hgb 13.5, Hct 41.8, MCV 93.5, MCH 30.2, MCHC 32.3, RDW 12.8, Plt Count 285, MPV 11.5 H, Neut % (Auto) 62.8, Lymph % (Auto) 26.7, Stoddard % (Auto) 8.8, Eos % (Auto) 1.0, Baso % (Auto) 0.4, Neut # (Auto) 4.5, Lymph # (Auto) 1.9, Stoddard # (Auto) 0.6, Eos # (Auto) 0.1, Baso # (Auto) 0.0, Sodium 140, Potassium 3.9, Chloride 109 H, Carbon Dioxide 27, Anion Gap 7.9, BUN 9, Creatinine 0.90, Estimated Creat Clear 110, Estimated GFR 64, Est GFR ( Amer) 77, Glucose 112 H, Calcium 8.5, Total Bilirubin 1.4 H, A ST 217 H D, ALT 98 H D, Alkaline Phosphatase 78, Troponin I < 0.01, Total Protein 7.2, Albumin 3.7, Globulin 3.5 H, Albumin/Globulin Ratio 1.1, Lipase 117 07/31/24 16:58: POC Glucose 87 I & O for Labs for Last 24 Hours: Intake & Output 07/28/24 07/29/24 07/30/24 07/31/24 23:59 23:59 23:59 23:59 Weight 260 lb GI: Present soft and tenderness Comments:: Normoactive bowel sounds, soft, mild tenderness in the epigastrium, no rebound or guarding, no Elmore sign, benign Results Labs 07/31/24 12:45 07/31/24 12:45 Labs: Laboratory Results - last 24 hr 07/31/24 12:45: WBC 7.2 D, RBC 4.47, Hgb 13.5, Hct 41.8, MCV 93.5, MCH 30.2, MCHC 32.3, RDW 12.8, Plt Count 285, MPV 11.5 H, Neut % (Auto) 62.8, Lymph % (Auto) 26.7, Stoddard % (Auto) 8.8, Eos % (Auto) 1.0, Baso % (Auto) 0.4, Neut # (Auto) 4.5, Lymph # (Auto) 1.9, Stoddard # (Auto) 0.6, Eos # (Auto) 0.1, Baso # (Auto) 0.0, Sodium 140, Potassium 3.9, Chloride 109 H, Carbon Dioxide 27, Anion Gap 7.9, BUN 9, Creatinine 0.90, Estimated Creat Clear 110, Estimated GFR 64, Est GFR ( Amer) 77, Glucose 112 H, Calcium 8.5, Total Bilirubin 1.4 H, A ST 217 H D, ALT 98 H D, Alkaline Phosphatase 78, Troponin I < 0.01, Total Protein 7.2, Albumin 3.7, Globulin 3.5 H, Albumin/Globulin Ratio 1.1, Lipase 117 07/31/24 16:58: POC Glucose 87 Assessment and Plan *Assessment and plan (1) Elevated LFTs: Status: Acute Category: Medical Code(s): R79.89 - Other specified abnormal findings of blood chemistry (2) Acute epigastric pain: Status: Acute Category: Medical Code(s): R10.13 - Epigastric pain (3) Common bile duct dilation: Status: Acute Category: Medical Code(s): K83.8 - Other specified diseases of biliary tract (4) Cholecystitis, acute: Status: Acute Category: Medical Code(s): K81.0 - Acute cholecystitis (5) Choledocholithiasis: Status: Acute Category: Medical Code(s): K80.50 - Calculus of bile duct without cholangitis or cholecystitis without obstruction Plan 1. Biliary colic with symptomatic gallstones. She has had a spike in her liver chemistries with rising bilirubin from yesterday. Her imaging shows dilated CBD suspicious for choledocholithiasis. She also has imaging evidence of mild cholecystitis. I would recommend ERCP in the a.m. for clearance and decompression of the biliary system. She can then have laparoscopic cholecystectomy. I would favor earlier cholecystectomy not electively because of the findings of cholecystitis on both ultrasound and CAT scan.
[2024-07-31 17:15] LABS: Troponin I < 0.01 ng/ml (0.00-0.034)
[2024-07-31 20:23] LABS: Troponin I < 0.01 ng/ml (0.00-0.034)
[2024-07-31 20:38] LABS: POC Glucose,Bedside 94 (70-110)
[2024-08-01] VITALS (15 sets, daily range): BP systolic 107–148; BP diastolic 44–97; PULSE 55–85; RESP 16–18; TEMP 36.2–36.8; O2SAT 92–100; BMI 38.5
[2024-08-01 05:17] LABS: POC Glucose,Bedside 100 (70-110)
[2024-08-01 06:23] LABS: Basophils % 0.6 % (0.1-2.0); Eosinophils # 0.1 Kmm3 (0.0-0.4); Eosinophils % 1.9 % (0.1-12.0); Hematocrit 36.3 % (37.0-47.0); Lymphocytes # 1.4 K/mm3 (0.7-4.5); Lymphocytes % 26.7 % (10-50); Mean Corpuscular HGB Conc 31.7 g/dL (31.8-35.4); Mean Corpuscular Hemoglobin 29.7 pg (27.0-31.2); Mean Corpuscular Volume 93.8 fl (81-99); Mean Platelet Volume 11.8 fl (7.4-10.4); Monocytes # 0.7 K/mm3 (0.1-1.0); Monocytes % 12.4 % (1.7-9.3); Neutrophils # 3.1 K/mm3 (1.8-7.8); Neutrophils % 58.2 % (37.0-80.0); Nucleated Red Blood Cells # 0 10^3/uL; Nucleated Red Blood Cells % 0 %; Platelet Count 223 K/mm3 (142-424); Red Blood Count 3.87 M/mm3 (4.20-5.40); Red Cell Distribution Width-SD 44.2 fL; White Blood Count 5.2 K/mm3 (4.8-10.8)
[2024-08-01 06:30] LABS: Albumin Level 3.3 g/dl (3.5-5.0); Chloride 109 mmol/L (98-107); Sodium 138 mmol/L (136-145)
[2024-08-01 06:31] LABS: Potassium 3.8 mmoL/L (3.5-5.1)
--- NOTE | 2024-08-01 06:31 | PC.NURSE ---
Pt has been NPO since 0000 for ERCP this am. Pt has not reported pain this shift. Respirations even and unlabored. Bed is low, locked, and call light is in reach.
[2024-08-01 06:32] LABS: Hemoglobin 11.5 g/dL (12.2-16.2)
[2024-08-01 06:33] LABS: Alanine Aminotransferase 142 U/L (12-78); Anion Gap 6.8 mEq/L (5-15); Aspartate Amino Transferase 221 U/L (14-36); Blood Urea Nitrogen 10 mg/dl (7-17); Carbon Dioxide 26 mmol/L (22.0-30.0); Creatinine Clearance Estimated 114 mL/min (50-200); Estimated Glomerular Filt Rate 64 ml/min (>60); GFR (African American) 77 ML/MIN (>60)
[2024-08-01 06:34] LABS: Albumin/Globulin Ratio 1.1 (1.1-1.8); Alkaline Phosphatase 93 U/L (38-126); Bilirubin,Total 2.2 mg/dl (0.2-1.3); Calcium 8.3 mg/dl (8.4-10.2); Globulin 3.1 g/dL (1.3-3.2); Glucose 98 mg/dl (74-100); Magnesium 1.9 mg/dl (1.6-2.3); Total Protein,Serum 6.4 g/dl (6.3-8.2)
--- NOTE | 2024-08-01 07:40 | EXP.ANES.CKL ---
[facility] Disclaimer: The information contained in this section may have been updated after the patient was seen, as this information can be updated by other users. Medical History SVT (supraventricular tachycardia) Tachycardia Atypical chest pain Plantar fasciitis of right foot Equinus contracture of right ankle Pain in right foot Encounter for screening examination for sexually transmitted disease URI (upper respiratory infection) Pain of wrist after trauma Right wrist sprain Acute bronchitis Acute sinusitis Fatigue Constipation Screening for gonorrhea Screening for chlamydial disease BMI 36.0-36.9,adult Menopause Arthritis HTN (hypertension) Coronary artery disease Diastolic dysfunction Atypical angina Dyspnea Abnormal cardiovascular stress test Abnormal electrocardiography Palpitations Viral syndrome Surgical History History of partial hysterectomy Hx of tonsillectomy H/O tubal ligation History of cardiac cath Family History Father CHF (congestive heart failure) Mother Cancer Social History Smoking Status: Never smoker second hand exposure: No alcohol intake: never substance use type: denies use current occupational status: employed Travel in the last 8 weeks: None household members: spouse housing: house current occupational exposures/hazards: No caffeine: No Have you lived/traveled outside [place] in past 30 days?: No Contact w/someone who lives/traveled outside [place] past 30 days?: No Exposure to someone with infectious disease in past 14 days?: No Do you have a fever (greater than 100.4 F or 38 C)?: No Have you tested positive for COVID-19: No Exposed to someone with COVID-19 in past 14 days?: No Do you have a sore throat?: No Do you have a cough?: No Do you have any weakness?: No Are you experiencing any nausea/vomitting?: No Do you have any diarrhea?: No Are you experiencing any unusual bleeding?: No Do you have any muscle aches/pain?: No Do you have any abdominal pain?: Yes Are you experiencing loss of taste or smell?: No [facility] Anesthesia Checklist Patient Identification Patient Identification: Arm Band and Verbal (Name & ) Structural Data Admitted From: Inpatient Planned Operative Procedure/s: ERCP Consent for Planned Operative Procedure(s) Verified: Yes Verified Documents: Surgical Consent and History and Physical NPO Status Verified Time NPO: 00:00 Additional verifications Patient : No Anesthesia Reactions: No Airway Assessment Mallampati Score:: Class II Dentition: Good Dentition Neurological Assessment Level of Consciousness: Awake, Alert and Appropriate Hx Seizures: No Anesthesia Plan Anesthesia Risk discussed: Yes Anesthesia Plan: Verified ASA Class: II Anesthesia Type: General
[2024-08-01 08:07] LABS: Hemoglobin A1C 5.9 % (4.0-6.0)
--- NOTE | 2024-08-01 08:15 | P.PCN_ITS ---
[facility] Procedure Note Date: 08/01/24 Time: 08:56 Procedure Note:: ERCP procedure Report: Endoscopic retrograde cholangiopancreatography with biliary sphincterotomy and balloon extraction Endoscopist: Naldo Gamboa II, MD Referring Physician: GRISEL Bolden Date of Procedure: August 01, 2024 Equipment: Olympus 180 side viewing endoscope duodenoscope Sedation: MAC sedation Indication: Mrs. Dixon is a 63-year-old female who is here for diagnostic/therapeutic ERCP. She was admitted yesterday after several attacks of biliary colic. The patient reports having the first onset of a dyspeptic attack 2 to 3 weeks ago and this lasted for a couple of hours. She did not see her physician. She did again present with abdominal pain 2 days ago and came to the ED. Labs were obtained 2 days ago and were essentially normal. Her labs at that time were alkaline phosphatase 64, ALT 26, AST 28 and total bilirubin 0.9 were normal. Her lipase was 80. She did not have imaging 2 days ago. She was given GI cocktail and improved and was sent home. She represented again yesterday with the same complaints of midepigastric abdominal pain radiating around into her back. This began at 7:30 AM yesterday morning and she came to the ED around 12:30 PM. This time, repeat labs showed a spike in biliary/liver chemistries. Yesterday her AST 217, ALT 98 and total bilirubin 1.4 increased. Her lipase was still normal at 117. Imaging studies of the abdomen today with ultrasound showed gallstones with mild gallbladder wall thickening and common bile duct dilation with CBD 8 mm (normal less than 6 mm) CT scan of the abdomen also showed mild gallbladder wall thickening with biliary ductal dilation. The patient has noted some dark in urine but no acholic stools. She has had no fever. She has never had pancreatitis. Her labs today showed total bilirubin 2.2, ALT 142, AST 221. Procedure: Prior to the procedure, a history and physical exam was performed, and patient's medications and allergies were reviewed. The risks (including pancreatitis), benefits and alternatives of the sedation and procedure were discussed with the patient. All questions were answered and informed consent was obtained. The patient was brought to the fluoroscopic radiology room. Patient identification and proposed procedure were verified by the physician and the nurse. The patient was placed in a swimmer's position between left lateral decubitus and prone position and the scope was passed under direct vision. Throughout the procedure, the patient's blood pressure, pulse, and oxygen saturations were monitored continuously. The ERCP was accomplished without difficulty. The patient tolerated the procedure well. Findings: The duodenoscope was passed directly into the upper esophagus and advanced to the second portion of the duodenum. There was a very small sliding hiatal hernia. There was some retained bile in digestive content in the body of the stomach. The duodenum was normal. Both the major and minor ampulla were prominent but were normal in appearance. The fluoroscopic C arm was then placed into position prior to cannulation with the duodenoscope was centered in a L- shaped position fluoroscopically in the second portion of duodenum. The entire endoscopic exam was done in conjunction with fluoroscopy. The cannula was then inserted through the duodenoscope channel and preloaded with low osmolar contrast. The common bile duct was selectively cannulated with the cannula and guidewire. Contrast was injected and the cholangiogram showed a 8 to 9 mm common bile duct with normal filling of the intrahepatic biliary system. There was very little contrast identified within the cystic duct and there was nonfilling of the gallbladder (suggestive of cholecystitis). There were no filling defects but there was smooth tapering of the distal CBD. A generous biliary sphincterotomy was performed. Next, the sweeping balloon was utilized to sweep the biliary system and the balloon was dilated to 9 mm diameter and swept to the biliary system. There was excellent decompression of the biliary tree with passage of bile and some yellow sludge and debris consistent with choledocholithiasis. The pancreatic duct was not cannulated intentionally. Impression: 1. Sludge/yellow debris (choledocholithiasis with no solid stones) status post biliary sphincterotomy and balloon sweep with clearance of the biliary tree Plan: The patient's biliary tree has now been cleared. She will need cholecystectomy now based on radiographic evidence of cholecystitis. I will discuss the findings with the patient and family.
--- NOTE | 2024-08-01 09:01 | FL_ITS ---
FINAL REPORT CLINICAL HISTORY: STONE IN DUCT FT: 1.3 51.57 MGY FINDINGS: FLUOROSCOPY LESS THAN 1 HOUR HISTORY: Fluoroscopy guidance. Fluoroscopic guidance was provided for ERCP. A single spot film was obtained. A total of 1.3 minutes of fluoroscopy time were used. Total DAP: 51.57 mGy IMPRESSION: As above. Reviewed, Interpreted and Dictated by Gualberto Kuhn MD Transcribed by Belinda Naranjo Authenticated and [facility]
--- NOTE | 2024-08-01 09:08 | P.PNANES_ITS ---
[facility] Anesthesia Record Part I Anesthesia Record I Intake, IV Amount: 700 Hydration: Adequate Estimated blood loss (mL): 0 Urine output (mL): 0 Blood Products used (#): none Blood Pressure: 120/44 SaO2: 95 Pulse Rate: 84 Airway Patency: Patent Respiratory Rate: 16 Temperature: 97.2 F Patient is:: Drowsy and Stable Stable to PACU at:: 09:00
[2024-08-01] MEDS: LACTATED RINGERS 1000ML 1,000 ML 999 ML IV (09:52)
[2024-08-01] MEDS: METOPROLOL TARTRATE 25MG TABLET 25 MG PO (09:53)
[2024-08-01] MEDS: IRBESARTAN 150MG TAB 150 MG PO (09:53)
[2024-08-01 11:55] LABS: POC Glucose,Bedside 112 (70-110)
--- NOTE | 2024-08-01 12:06 | P.DS_ITS ---
General Admission date:: 07/31/24 Discharge date: 08/01/24 HPI HPI HPI: Ms. Dixon is a 63-year-old female who initially presented to the ER yesterday due to onset of abdominal pain that had began on Sunday. She was treated and discharged home with improvement in symptoms. Mehnaz presented today due to worsening onset of pain and nausea in her upper abdomen. Followed by dyspepsia. Denies shortness of breath or chest pain. No bradley emesis or diarrhea. Labs obtained on presentation yesterday were essentially normal. Today however repeat labs showed concern for elevated bilirubin at 1.4, AST of 217, alk phos of 98. Lipase 117. Kidney function normal with BUN [address], [address] of abdomen obtained showing significant distention of common bile duct at approximately 12 mm. Also some mild gallbladder wall thickening. Given concern for common bile duct obstruction/biliary dilatation, medicine consulted for admission and further management along with GI. On arrival to the floor, still having some pain but improved. Stable on room air. Afebrile. No other acute complaints. Hospital Course Hospital Course Hospital Course: 63-year-old female who presented with abdominal pain. Concern for common bile duct obstruction/CBD dilation on workup in the ED with elevation in transaminitis. Discussed case with ER physician, request admission for monitoring overnight and evaluation by GI in the morning with possible ERCP. I agreed to admit for further care. Hemodynamically stable. Morphine for pain at this time. Evaluated by GI, ERCP performed. Surgery was consulted, plan for follow-up on Sunday for cholecystectomy due to current usage of Eliquis and recent usage of GLP-1. Stable to discharge with follow-up and 48 hours for cholecystectomy. Problems addressed as follows: Suspected choledocholithiasis Bile duct dilation -Patient is on GLP-1, may play a factor in her symptoms however cannot rule out common bile duct stone given appearance of obstruction on CT. Per my review, CBD measures 11 to 12 mm. Has biliary dilation into the liver. Gallbladder distended with thickening of the wall. No appreciable radiopaque stones. Liver enzymes elevated with Bili 1.4, AST 117, ALT 98, alk phos 78. Lipase 117. Repeat levels in the morning showed slight worsening of elevation with bilirubin to 2.2 and AST to 221. Alkaline phosphatase remained within normal range at 93. Case discussed with GI, patient made n.p.o. at midnight. Patient was taken for ERCP. Found to have an 8 to 9 mm common bile duct stone with normal filling of the intrahepatic biliary system. Sweep was performed and stone removed. Generous sphincterotomy performed. Significant yellow sludge and debris removed with sweep. Diet was advanced after returning to the floor. Tolerating p.o. intake well with improvement in abdominal pain. Stable to discharge home with follow-up with surgery on Sunday for cholecystectomy. Diabetes: A1c 5.9, well controlled. hold tirzepitide due to cholecystitis and abdominal pain, re-evaluate initiation after surgery. Continue valsartan 160 mg daily for hypertension Continue metoprolol tartrate 25 mg twice daily for A-fib Hold Eliquis in the setting of impending surgery Hold statin in the setting of elevated liver enzymes Total time spent on discharge 32 minutes in counseling, documentation, chart review, and direct care with patient. Exam Data for Last 24 hours Vital signs and Labs for Last 24 Hours: Temp Pulse Resp BP Pulse Ox O2 Del Method 97.6 F 83 18 107/59 L 97 Room Air 08/01/24 09:30 08/01/24 09:30 08/01/24 09:30 08/01/24 09:30 08/01/24 09:30 08/01/24 11:00 Laboratory Results - last 24 hr 07/31/24 12:45: WBC 7.2 D, RBC 4.47, Hgb 13.5, Hct 41.8, MCV 93.5, MCH 30.2, MCHC 32.3, RDW 12.8, Plt Count 285, MPV 11.5 H, Neut % (Auto) 62.8, Lymph % (Auto) 26.7, [place] % (Auto) 8.8, Eos % (Auto) 1.0, Baso % (Auto) 0.4, Neut # ( Auto) 4.5, Lymph # (Auto) 1.9, [place] # (Auto) 0.6, Eos # (Auto) 0.1, Baso # (Auto) 0.0, Sodium 140, Potassium 3.9, Chloride 109 H, Carbon Dioxide 27, Anion Gap 7.9, BUN 9, Creatinine 0.90, Estimated Creat Clear 110, Estimated GFR 64, Est GFR ( Amer) 77, Glucose 112 H, Calcium 8.5, Total Bilirubin 1.4 H, AST 217 H D, ALT 98 H D, Alkaline Phosphatase 78, Troponin I < 0.01, Total Protein 7.2, Albumin 3.7, Globulin 3.5 H, Albumin/Globulin Ratio 1.1, Lipase 117 07/31/24 16:13: Troponin I < 0.01 07/31/24 16:58: POC Glucose 87 07/31/24 19:20: Troponin I < 0.01 07/31/24 20:28: POC Glucose 94 08/01/24 05:10: POC Glucose 100 08/01/24 05:40: WBC 5.2 D, RBC 3.87 L, Hgb 11.5 L D, Hct 36.3 L, MCV 93.8, MCH 29.7, MCHC 31.7 L, RDW 13.0, Plt Count 223, MPV 11.8 H, Neut % (Auto) 58.2, L ymph % (Auto) 26.7, [place] % (Auto) 12.4 H, Eos % (Auto) 1.9, Baso % (Auto) 0.6, Neut # (Auto) 3.1, Lymph # (Auto) 1.4, [place] # (Auto) 0.7, Eos # (Auto) 0.1, Baso # (Auto) 0.0, Sodium 138, Potassium 3.8, Chloride 109 H, Carbon Dioxide 26, Anion Gap 6.8, BUN 10, Creatinine 0.90, Estimated Creat Clear 114, Estimated GFR 64, Est GFR ( Amer) 77, Glucose 98, Hemoglobin A1c 5.9, Calcium 8.3 L, Magnesium 1.9, Total Bilirubin 2.2 H, AST 221 H, ALT 142 H D, Alkaline Phosphatase 93, Total Protein 6.4, Albumin 3.3 L D, Globulin 3.1, Albumin/Globulin Ratio 1.1 08/01/24 11:43: POC Glucose 112 H I & O for Last 24 hours: Intake & Output 07/29/24 07/30/24 07/31/24 08/01/24 23:59 23:59 23:59 23:59 Intake Total 700 / 700 Output Total 0 / 0 Balance 0 / 0 700 / 700 Weight 117.934 kg 122.152 kg Constitutional Constitutional: no acute distress, obese and cooperative *Routine HEENT Exam Head: Present normocephalic Eye: Present EOMI and PERRL ENT: Present mucous membranes moist *Routine Neck Exam Neck: Present supple; Absent lymphadenopathy *Routine Respiratory Exam Respiratory: Present CTA bilaterally; Absent wheezes or crackles *Routine Cardiovascular Exam Cardiovascular: Present RRR *Routine Abdominal Exam Abdominal: Present soft, normoactive bowel sounds and tenderness (mild, improved) *Routine Rectal Exam Patient deferred: visual exam *Routine Exam Patient deferred: external exam *Routine Extremities Exam Extremities: Absent cyanosis, clubbing or edema *Routine Skin Exam Skin: Present warm; Absent rash *Routine Neurological Exam Neurological: Present alert, oriented X3 and moving all extremities; Absent altered mental status Results Data Completed and Pending Labs on day of discharge: Labs from last 24 hours 08/01/24 08/01/24 08/01/24 11:43 05:40 05:10 WBC 5.2 D RBC 3.87 L Hgb 11.5 L D Hct 36.3 L MCV 93.8 MCH 29.7 MCHC 31.7 L RDW 13.0 Plt Count 223 MPV 11.8 H Neut % (Auto) 58.2 Lymph % (Auto) 26.7 [place] % (Auto) 12.4 H Eos % (Auto) 1.9 Baso % (Auto) 0.6 Neut # (Auto) 3.1 Lymph # (Auto) 1.4 [place] # (Auto) 0.7 Eos # (Auto) 0.1 Baso # (Auto) 0.0 Sodium 138 Potassium 3.8 Chloride 109 H Carbon Dioxide 26 Anion Gap 6.8 BUN 10 Creatinine 0.90 Estimated Creat Clear 114 Estimated GFR 64 Est GFR ( Amer) 77 Glucose 98 POC Glucose 112 H 100 Hemoglobin A1c 5.9 Calcium 8.3 L Magnesium 1.9 Total Bilirubin 2.2 H AST 221 H ALT 142 H D Alkaline Phosphatase 93 Troponin I Total Protein 6.4 Albumin 3.3 L D Globulin 3.1 Albumin/Globulin Ratio 1.1 Lipase 07/31/24 07/31/24 07/31/24 20:28 19:20 16:58 WBC RBC Hgb Hct MCV MCH MCHC RDW Plt Count MPV Neut % (Auto) Lymph % (Auto) [place] % (Auto) Eos % (Auto) Baso % (Auto) Neut # (Auto) Lymph # (Auto) [place] # (Auto) Eos # (Auto) Baso # (Auto) Sodium Potassium Chloride Carbon Dioxide Anion Gap BUN Creatinine Estimated Creat Clear Estimated GFR Est GFR ( Amer) Glucose POC Glucose 94 87 Hemoglobin A1c Calcium Magnesium Total Bilirubin AST ALT Alkaline Phosphatase Troponin I < 0.01 Total Protein Albumin Globulin Albumin/Globulin Ratio Lipase 07/31/24 07/31/24 16:13 12:45 WBC 7.2 D RBC 4.47 Hgb 13.5 Hct 41.8 MCV 93.5 MCH 30.2 MCHC 32.3 RDW 12.8 Plt Count 285 MPV 11.5 H Neut % (Auto) 62.8 Lymph % (Auto) 26.7 [place] % (Auto) 8.8 Eos % (Auto) 1.0 Baso % (Auto) 0.4 Neut # (Auto) 4.5 Lymph # (Auto) 1.9 [place] # (Auto) 0.6 Eos # (Auto) 0.1 Baso # (Auto) 0.0 Sodium 140 Potassium 3.9 Chloride 109 H Carbon Dioxide 27 Anion Gap 7.9 BUN 9 Creatinine 0.90 Estimated Creat Clear 110 Estimated GFR 64 Est GFR ( Amer) 77 Glucose 112 H POC Glucose Hemoglobin A1c Calcium 8.5 Magnesium Total Bilirubin 1.4 H AST 217 H D ALT 98 H D Alkaline Phosphatase 78 Troponin I < 0.01 < 0.01 Total Protein 7.2 Albumin 3.7 Globulin 3.5 H Albumin/Globulin Ratio 1.1 Lipase 117 DS: Diagnosis Discharge Diagnosis (1) Choledocholithiasis: Status: Acute Code(s): K80.50 - Calculus of bile duct without cholangitis or cholecystitis without obstruction (2) Common bile duct dilation: Status: Acute Code(s): K83.8 - Other specified diseases of biliary tract (3) Diabetes mellitus type 2 in obese: Status: Acute Code(s): E11.69 - Type 2 diabetes mellitus with other specified complication; E66.9 - Obesity, unspecified (4) HTN (hypertension): Status: Acute Code(s): I10 - Essential (primary) hypertension Qualifiers: Hypertension type: primary hypertension Qualified Code(s): I10 - Essential (primary) hypertension (5) HLD (hyperlipidemia): Status: Chronic Code(s): E78.5 - Hyperlipidemia, unspecified Qualifiers: Hyperlipidemia type: mixed hyperlipidemia Qualified Code(s): E78.2 - Mixed hyperlipidemia (6) Atrial fibrillation: Status: Acute Code(s): I48.91 - Unspecified atrial fibrillation Meds Home Medications and Allergies Home Medications ?Medication ?Instructions ?Recorded ?Confirmed ?Type blood sugar diagnostic (OneTouch #100 ea 07/18/22 07/31/24 Rx Ultra Test strips) lancets (OneTouch UltraSoft #100 ea 07/18/22 07/31/24 Rx Lancets) blood-glucose meter (OneTouch #1 ea 10/17/22 07/31/24 History Ultra2 Meter) coenzyme Q10 100 mg capsule (Co 100 mg PO BID 11/19/23 07/31/24 History Q-10) calcium carbonate 1,000 mg (2 x 500 mg calcium 02/18/24 07/31/24 Rx (1,250 mg)) PO DAILY #180 tabs valsartan 160 mg tablet 160 mg PO DAILY #90 tabs 04/16/24 07/31/24 Rx tirzepatide (weight loss) 7.5 7.5 mg (0.5 mL) SQ WEEKLY #2 mL 06/22/24 07/31/24 Rx mg/0.5 mL subcutaneous pen injector (Zepbound) metoprolol tartrate 25 mg tablet 25 mg PO BID #60 tabs 07/15/24 07/31/24 Rx apixaban 5 mg tablet (Eliquis) 5 mg PO BID #60 tabs 07/16/24 07/31/24 Rx cholecalciferol (vitamin D3) 1,250 1,250 mcg PO WEEKLY 07/31/24 07/31/24 History mcg (50,000 unit) capsule metoclopramide HCl 10 mg tablet 10 mg PO Q6HP PRN nausea and 07/31/24 07/31/24 History (Reglan) vomiting rosuvastatin 40 mg tablet 40 mg PO HS 07/31/24 07/31/24 History New Prescriptions to Start Prescriptions: Allergies Allergy/AdvReac Type Severity Reaction Status Date / Time No Known Allergies Allergy Verified 07/31/24 13:19 Discharge Plan Disposition Patient Disposition: Home, Self-Care Condition: Fair Discharge Order Discharge Orders: Discharge Order (Routine); Ordered 08/01/24 Ordered By: Kofi Anthony Follow up Plan Follow up with: Wilmar Linares MD [Staff Physician] - Enter time for follow up (Sunday at 11am, check in to registration for cholecystectomy) Naldo Gamboa II, MD [Staff Physician] - 11/11/24 8:00 am Amanda Guevara APRN [Primary Care Provider] - 08/14/24 10:30 am Prescriptions/Medication Reconciliation: Continued coenzyme Q10 [Co Q-10] 100 mg capsule 100 mg PO BID metoprolol tartrate 25 mg tablet 25 mg PO BID Qty: 60 2RF (DME) lancets [OneTouch UltraSoft Lancets] [facility] See Rx Instructions .Route Qty: 100 3RF Rx Instructions: check glucose 1 time per day (DME) OneTouch Ultra Test Strip See Rx Instructions .Route Qty: 100 3RF Rx Instructions: check glucose 1 time daily (DME) blood-glucose meter [OneTouch Ultra2 Meter] [facility] See Rx Instructions .ROUTE .MEDSUPPLY Qty: 1 Rx Instructions: As directed valsartan 160 mg tablet 160 mg PO DAILY Qty: 90 3RF calcium carbonate 500 mg calcium (1,250 mg) tablet 1,000 mg PO DAILY Qty: 180 3RF metoclopramide HCl [Reglan] 10 mg tablet 10 mg PO Q6HP PRN (Reason: nausea and vomiting) rosuvastatin 40 mg tablet 40 mg PO HS cholecalciferol (vitamin D3) 1,250 mcg (50,000 unit) capsule 1,250 mcg PO WEEKLY Held Zepbound 7.5 mg/0.5 mL pen injector 7.5 mg SQ WEEKLY Qty: 2 0RF Hold Instructions: until after surgery Eliquis 5 mg tablet 5 mg PO BID Qty: 60 3RF Hold Instructions: until morning after surgery Problem Reconciliation Problems Reviewed?: Yes Patient Discharge Instructions ACTIVITY: Continue current activity DIET: continue same diet Additional Instructions: N.p.o. after midnight on Sunday. Nothing to eat Sunday morning, okay to take morning medications with water only. Present to outpatient registration 08/04/2024 at [address] Linares Patient Instructions: DI for Endoscopic Retrograde Cholangiopancreatography, DI for Gallstones Print Language: [place] Providers Primary Care Provider: Amanda Guevara Admit Provider: Kofi Anthony Attending Provider: Kofi Anthony
--- NOTE | 2024-08-01 12:28 | P.CONS_ITS ---
History of Present Illness *Admission Date: 07/31/24 *Reason for visit:: Gallbladder *History of present illness: Patient is a pleasant 63-year-old female with history of atrial fibrillation, osteopenia, diabetes recently with GLP?1 agonist injection, hyperlipidemia, on Eliquis who presented to the emergency department on 07/30/2024 with some increasing epigastric pain radiating around to her back with associated nausea and diminished appetite. It was initially felt that this may be gastroparesis secondary to increasing dose of GLP?1 agonist. She underwent thorough evaluation in the emergency department at that time and she was able to be managed as an outpatient. She returned to the emergency department the following day on with similar symptoms. However, workup at this time revealed mildly elevated bilirubin at 1.4 with some increase in AST and ALT which were normal the day before. Bilirubin was 1.4. Case was discussed with gastroenterology for possible ERCP as she was found to have a generous bile duct of 8 mm by ultrasound which also revealed gallstones with mild gallbladder wall thickening. She was admitted for inpatient management. She had some further elevation of bilirubin to 2.2 after admission. White blood cell count has remained normal. She underwent ERCP this morning on 08/01/[address] Naldo Gamboa and was found to have sludge and debris consistent with choledocholithiasis. She underwent sphincterotomy with balloon sweep and clearance of the biliary tree. Since her ERCP she does feel better. [facility] Disclaimer: The information contained in this section may have been updated after the patient was seen, as this information can be updated by other users. Medical History SVT (supraventricular tachycardia) Tachycardia Atypical chest pain Plantar fasciitis of right foot Equinus contracture of right ankle Pain in right foot Encounter for screening examination for sexually transmitted disease URI (upper respiratory infection) Pain of wrist after trauma Right wrist sprain Acute bronchitis Acute sinusitis Fatigue Constipation Screening for gonorrhea Screening for chlamydial disease BMI 36.0-36.9,adult Menopause Arthritis HTN (hypertension) Coronary artery disease Diastolic dysfunction Atypical angina Dyspnea Abnormal cardiovascular stress test Abnormal electrocardiography Palpitations Viral syndrome Surgical History History of partial hysterectomy Hx of tonsillectomy H/O tubal ligation History of cardiac cath Family History Father CHF (congestive heart failure) Mother Cancer Social History Smoking Status: Never smoker second hand exposure: No alcohol intake: never substance use type: denies use current occupational status: employed Travel in the last 8 weeks: None household members: spouse housing: house current occupational exposures/hazards: No caffeine: No Meds Home Medications and Allergies Home Medications ?Medication ?Instructions ?Recorded ?Confirmed ?Type blood sugar diagnostic (OneTouch #100 ea 07/18/22 07/31/24 Rx Ultra Test strips) lancets (OneTouch UltraSoft #100 ea 07/18/22 07/31/24 Rx Lancets) blood-glucose meter (StrongViewTouch #1 ea 10/17/22 07/31/24 History Ultra2 Meter) coenzyme Q10 100 mg capsule (Co 100 mg PO BID 11/19/23 07/31/24 History Q-10) calcium carbonate 1,000 mg (2 x 500 mg calcium 02/18/24 07/31/24 Rx (1,250 mg)) PO DAILY #180 tabs valsartan 160 mg tablet 160 mg PO DAILY #90 tabs 04/16/24 07/31/24 Rx tirzepatide (weight loss) 7.5 7.5 mg (0.5 mL) SQ WEEKLY #2 mL 06/22/24 07/31/24 Rx mg/0.5 mL subcutaneous pen injector (Zepbound) metoprolol tartrate 25 mg tablet 25 mg PO BID #60 tabs 07/15/24 07/31/24 Rx apixaban 5 mg tablet (Eliquis) 5 mg PO BID #60 tabs 07/16/24 07/31/24 Rx cholecalciferol (vitamin D3) 1,250 1,250 mcg PO WEEKLY 07/31/24 07/31/24 History mcg (50,000 unit) capsule metoclopramide HCl 10 mg tablet 10 mg PO Q6HP PRN nausea and 07/31/24 07/31/24 History (Reglan) vomiting rosuvastatin 40 mg tablet 40 mg PO HS 07/31/24 07/31/24 History New Prescriptions to Start Prescriptions: Allergies Allergy/AdvReac Type Severity Reaction Status Date / Time No Known Allergies Allergy Verified 07/31/24 13:19 Exam (Inpt) Vital signs and Labs for Last 24 Hours: Temp Pulse Resp BP Pulse Ox O2 Del Method 97.6 F 83 18 107/59 L 97 Room Air 08/01/24 09:30 08/01/24 09:30 08/01/24 09:30 08/01/24 09:30 08/01/24 09:30 08/01/24 11:00 Laboratory Results - last 24 hr 07/31/24 12:45: WBC 7.2 D, RBC 4.47, Hgb 13.5, Hct 41.8, MCV 93.5, MCH 30.2, MCHC 32.3, RDW 12.8, Plt Count 285, MPV 11.5 H, Neut % (Auto) 62.8, Lymph % (Auto) 26.7, [place] % (Auto) 8.8, Eos % (Auto) 1.0, Baso % (Auto) 0.4, Neut # (Auto) 4.5, Lymph # (Auto) 1.9, [place] # (Auto) 0.6, Eos # (Auto) 0.1, Baso # (Auto) 0.0, Sodium 140, Potassium 3.9, Chloride 109 H, Carbon Dioxide 27, Anion Gap 7.9, BUN 9, Creatinine 0.90, Estimated Creat Clear 110, Estimated GFR 64, Est GFR ( Amer) 77, Glucose 112 H, Calcium 8.5, Total Bilirubin 1.4 H, A ST 217 H D, ALT 98 H D, Alkaline Phosphatase 78, Troponin I < 0.01, Total Protein 7.2, Albumin 3.7, Globulin 3.5 H, Albumin/Globulin Ratio 1.1, Lipase 117 07/31/24 16:13: Troponin I < 0.01 07/31/24 16:58: POC Glucose 87 07/31/24 19:20: Troponin I < 0.01 07/31/24 20:28: POC Glucose 94 08/01/24 05:10: POC Glucose 100 08/01/24 05:40: WBC 5.2 D, RBC 3.87 L, Hgb 11.5 L D, Hct 36.3 L, MCV 93.8, MCH 29.7, MCHC 31.7 L, RDW 13.0, Plt Count 223, MPV 11.8 H, Neut % (Auto) 58.2, Lymph % (Auto) 26.7, [place] % (Auto) 12.4 H, Eos % (Auto) 1.9, Baso % (Auto) 0.6, Neut # (Auto) 3.1, Lymph # (Auto) 1.4, [place] # (Auto) 0.7, Eos # (Auto) 0.1, Baso # (Auto) 0.0, Sodium 138, Potassium 3.8, Chloride 109 H, Carbon Dioxide 26, Anion Gap 6.8, BUN 10, Creatinine 0.90, Estimated Creat Clear 114, Estimated GFR 64, Est GFR ( Amer) 77, Glucose 98, Hemoglobin A1c 5.9, Calcium 8.3 L, Magnesium 1.9, Total Bilirubin 2.2 H, AST 221 H, ALT 142 H D, Alkaline Phosphatase 93, Total Protein 6.4, Albumin 3.3 L D, Globulin 3.1, Albumin/Globulin Ratio 1.1 08/01/24 11:43: POC Glucose 112 H I & O for Labs for Last 24 Hours: Intake & Output 07/30/24 07/31/24 08/01/24 08/02/24 11:59 11:59 11:59 11:59 Intake Total 700 / 700 Output Total 0 / 0 Balance 700 / 700 Weight 269 lb 4.8 oz Constitutional: no acute distress Head: Present normocephalic Respiratory: Present CTA bilaterally GI: Present soft Comments:: She has tenderness in the epigastrium and right upper quadrant. Results Labs 08/01/24 05:40 08/01/24 05:40 Labs: Laboratory Results - last 24 hr 07/31/24 12:45: WBC 7.2 D, RBC 4.47, Hgb 13.5, Hct 41.8, MCV 93.5, MCH 30.2, MCHC 32.3, RDW 12.8, Plt Count 285, MPV 11.5 H, Neut % (Auto) 62.8, Lymph % (Auto) 26.7, [place] % (Auto) 8.8, Eos % (Auto) 1.0, Baso % (Auto) 0.4, Neut # (Auto) 4.5, Lymph # (Auto) 1.9, [place] # (Auto) 0.6, Eos # (Auto) 0.1, Baso # (Auto) 0.0, Sodium 140, Potassium 3.9, Chloride 109 H, Carbon Dioxide 27, Anion Gap 7.9, BUN 9, Creatinine 0.90, Estimated Creat Clear 110, Estimated GFR 64, Est GFR ( Amer) 77, Glucose 112 H, Calcium 8.5, Total Bilirubin 1.4 H, A ST 217 H D, ALT 98 H D, Alkaline Phosphatase 78, Troponin I < 0.01, Total Protein 7.2, Albumin 3.7, Globulin 3.5 H, Albumin/Globulin Ratio 1.1, Lipase 117 07/31/24 16:13: Troponin I < 0.01 07/31/24 16:58: POC Glucose 87 07/31/24 19:20: Troponin I < 0.01 07/31/24 20:28: POC Glucose 94 08/01/24 05:10: POC Glucose 100 08/01/24 05:40: WBC 5.2 D, RBC 3.87 L, Hgb 11.5 L D, Hct 36.3 L, MCV 93.8, MCH 29.7, MCHC 31.7 L, RDW 13.0, Plt Count 223, MPV 11.8 H, Neut % (Auto) 58.2, Lymph % (Auto) 26.7, [place] % (Auto) 12.4 H, Eos % (Auto) 1.9, Baso % (Auto) 0.6, Neut # (Auto) 3.1, Lymph # (Auto) 1.4, [place] # (Auto) 0.7, Eos # (Auto) 0.1, Baso # (Auto) 0.0, Sodium 138, Potassium 3.8, Chloride 109 H, Carbon Dioxide 26, Anion Gap 6.8, BUN 10, Creatinine 0.90, Estimated Creat Clear 114, Estimated GFR 64, Est GFR ( Amer) 77, Glucose 98, Hemoglobin A1c 5.9, Calcium 8.3 L, Magnesium 1.9, Total Bilirubin 2.2 H, AST 221 H, ALT 142 H D, Alkaline Phosphatase 93, Total Protein 6.4, Albumin 3.3 L D, Globulin 3.1, Albumin/Globulin Ratio 1.1 08/01/24 11:43: POC Glucose 112 H Assessment and Plan *Assessment and plan (1) Choledocholithiasis: Status: Acute Category: Medical Code(s): K80.50 - Calculus of bile duct without cholangitis or cholecystitis without obstruction Plan Symptoms have improved after ERCP. No need to proceed with urgent cholecystectomy at this time. Discussed the options with the patient. I do feel that early outpatient cholecystectomy may be reasonable. Arrangements were made for laparoscopic possibly open cholecystectomy as an outpatient on 08/04/2024.
--- NOTE | 2024-08-04 11:22 | SW/DCPLANNER ---
Patient is in surgery. Will call tomorrow to do a follow up phone call. Kris Mcgill
== END 2024-08-01 14:21 | disposition home or self-care (01) | DRG 446 ==
LOC: ER 14:32 → 2ND 16:10
PROVIDERS: Internal Medicine Gastroenterology; Admitting Provider Internal Medicine Adolescent Medicine; Emergency Provider Emergency Medicine; PCP Nurse Practitioner Family; Visit Provider Internal Medicine Adolescent Medicine
PROC: 0F798ZZ Dilation of Common Bile Duct, Via Natural or Artificial Opening Endoscopic (ICD-10-PCS; CPT 43260; principal; 2024-08-01 07:30)
DX: K80.50 Calculus of bile duct without cholangitis or cholecystitis without obstruction (principal); R10.13 Epigastric pain; I10 Essential (primary) hypertension; E78.5 Hyperlipidemia, unspecified; I48.91 Unspecified atrial fibrillation; I25.10 Atherosclerotic heart disease of native coronary artery without angina pectoris; Z79.899 Other long term (current) drug therapy; Z79.01 Long term (current) use of anticoagulants; Z79.85 Long-term (current) use of injectable non-insulin antidiabetic drugs
CPT/HCPCS: 36415; 74177; 74330; 76705; 80053; 82962; 83036; 83690; 83735; 84484; 85025; 99285; J3490; C1726; C1769; J1885; J2250; J2270; J2405; J2765; J3010; J7120; Q9967

== ENCOUNTER 2024-08-04 09:52 | Day surgery (SDC) | payer BC, SELFPAY ==
[2024-08-04] VITALS (10 sets, daily range): BP systolic 123–159; BP diastolic 65–94; PULSE 58–100; RESP 14–18; TEMP 36.2–38; O2SAT 94–100; BMI 38.4
--- NOTE | 2024-08-04 11:13 | ECG_ITS ---
APPROVED REPORT Exam: Resting ECG HR:132 bpm ECG Measurements Heart Rate 132 AXES NE 68 P -1 QRSd 69 QRS 126 QT 322 T -14 QTc 400 Conclusion SINUS TACHYCARDIA WITH SHORT NE INTERVAL WITH OCCASIONAL VENTRICULAR PREMATURE COMPLEXES LOW QRS VOLTAGE [QRS DEFLECTION < 0.5/1.0 mV IN LIMB/CHEST LEADS] POSSIBLE RIGHT VENTRICULAR CONDUCTION DELAY [RSR (QR) IN V1/V2] ANTEROLATERAL MYOCARDIAL INFARCTION , OF INDETERMINATE AGE [40+ ms Q WAVE IN I/aVL/V3-V6] MARKED ST DEPRESSION, CONSIDER SUBENDOCARDIAL INJURY [0.2+ mV ST DEPRESSION] ACUTE [place] UNCONFIRMED REPORT Electronically signed by : Selvin Mariscal MD 08/04/2024 16:19:43
--- NOTE | 2024-08-04 11:33 | P.PNANES_ITS ---
[facility] Disclaimer: The information contained in this section may have been updated after the patient was seen, as this information can be updated by other users. Medical History SVT (supraventricular tachycardia) Tachycardia Atypical chest pain Plantar fasciitis of right foot Equinus contracture of right ankle Pain in right foot Encounter for screening examination for sexually transmitted disease URI (upper respiratory infection) Pain of wrist after trauma Right wrist sprain Acute bronchitis Acute sinusitis Fatigue Constipation Screening for gonorrhea Screening for chlamydial disease BMI 36.0-36.9,adult Menopause Arthritis HTN (hypertension) Coronary artery disease Diastolic dysfunction Atypical angina Dyspnea Abnormal cardiovascular stress test Abnormal electrocardiography Palpitations Viral syndrome Surgical History History of partial hysterectomy Hx of tonsillectomy H/O tubal ligation History of cardiac cath Family History Father CHF (congestive heart failure) Mother Cancer Social History Smoking Status: Never smoker second hand exposure: No alcohol intake: never substance use type: denies use current occupational status: employed Travel in the last 8 weeks: None household members: spouse housing: house current occupational exposures/hazards: No caffeine: No Have you lived/traveled outside US in past 30 days?: No Contact w/someone who lives/traveled outside US past 30 days?: No Exposure to someone with infectious disease in past 14 days?: No Do you have a fever (greater than 100.4 F or 38 C)?: No Have you tested positive for COVID-19: No Exposed to someone with COVID-19 in past 14 days?: No Do you have a sore throat?: No Do you have a cough?: No Do you have any weakness?: No Do you have any diarrhea?: No Are you experiencing any unusual bleeding?: No Do you have any muscle aches/pain?: No Do you have any abdominal pain?: No Are you experiencing loss of taste or smell?: No [facility] Anesthesia Checklist Patient Identification Patient Identification: Arm Band and Verbal (Name & ) Structural Data Admitted From: Home Planned Operative Procedure/s: Lap monica Consent for Planned Operative Procedure(s) Verified: Yes Verified Documents: Surgical Consent NPO Status Verified Time NPO: 00:00 Chart Verification Results Verified: ECG Additional verifications Patient : No Anesthesia Reactions: No Hx Blood Transfusions: No Blood Transfusion Reaction: No Airway Assessment Mallampati Score:: Class III C-Spine Mobility Assessed: Yes TMJ Mobility Assessed: No Dentition: Good Dentition Neurological Assessment Level of Consciousness: Awake, Alert and Appropriate Hx Seizures: No Numbness or tingling in extremities: No Anesthesia Plan Anesthesia Risk discussed: Yes Anesthesia Plan: Verified ASA Class: III Anesthesia Type: General
[2024-08-04] MEDS: LACTATED RINGERS 1000ML 1,000 ML 25 ML IV (11:38)
[2024-08-04] MEDS: CEFAZOLIN SODIUM 2 GM in 0.9 % SODIUM CHLORIDE 100 ML IV (14:20)
[2024-08-04] MEDS: LIDOCAINE 1% 20ML MDV 20 ML (14:50)
[2024-08-04] MEDS: ROPIVACAINE 0.5% 30ML VIAL 150 MG (14:50)
--- NOTE | 2024-08-04 15:41 | EXP.OP.NOTE ---
Date of procedure: 08/04/24 Pre-op Diagnosis:: Cholecystitis Post-op Diagnosis:: Same Procedure performed:: Laparoscopic cholecystectomy Surgeon:: Wilmar Linares MD Anesthesia: GETYanely Estimated blood loss (mL): 20 Clinical Note:: Patient is a 63-year-old female who had presented with findings consistent with choledocholithiasis on 07/31/24. She was admitted for inpatient management. She underwent ERCP with stone extraction and sphincterotomy. She did have nonfilling of the gallbladder consistent with possible cholecystitis. However she shows significant clinical improvement after clearance of the biliary tree. It was felt that she would best be served with early outpatient cholecystectomy. Operative findings:: She had a distended edematous gallbladder. There were several moderate stones within the gallbladder. There appeared to be small stone in the cystic duct which was able to be milked back into the gallbladder. She had some fatty infiltration of the liver. Operative note:: Consent was obtained and patient was taken the operating room. She was given preoperative intravenous antibiotics. In the operating room she was placed in a supine position. General anesthesia was induced via endotracheal tube. Her abdomen was prepped and draped in the standard surgical fashion. Umbilical incision was made within her umbilicus and her previous laparoscopy scar. While performing abdominal wall lift Veress needle was inserted and CO2 pneumoperitoneum was achieved to 15 mmHg. 11 mm optical trocar was inserted at the umbilicus. Intraperitoneal contents were visualized. She had some omental adhesions to the anterior abdominal wall in the right upper quadrant. 11 mm trocar was inserted in the epigastrium. Omental adhesions were taken down with a's ultrasonic harmonic joceline which allowed for placement of a couple of 5 mm trocars. There was some fatty infiltration of the liver. Gallbladder was grasped retracted anteriorly and superiorly over the dome of the liver. Infundibulum of the gallbladder was retracted anterior laterally. There was a moderate stone impacted in the neck of the gallbladder and this was manipulated into the mid body of the gallbladder. Blunt dissection was carried out bluntly incising the visceral peritoneum. Ultimately the cystic duct and cystic artery were clearly identified and the critical view of safety. There appeared to be a stone, small, and the cystic duct which was able to be milked back into the gallbladder. The cystic duct was then isolated, multiply clipped, and sharply divided. Cystic artery was carefully coagulated with a's ultrasonic harmonic joceline and divided. Gallbladder was dissected free from the liver in a retrograde fashion using Abelardo ultrasonic harmonic joceline. Gallbladder was placed within an Endo Catch retrieval device and removed from the peritoneal cavity via the umbilical trocar site which required some extension of the fascial incision for delivery. Gallbladder fossa was inspected for hemostasis which was assured. Limited irrigation and suctioning was performed until clear. Trocars were removed the CO2 pneumoperitoneum was evacuated. Fascia at the umbilicus was closed with several interrupted 0 Vicryl sutures. Local anesthetic was infiltrated. Skin incision was closed with 4-0 Monocryl in a subcuticular fashion. Steri-Strips and clean dry sterile dressings were applied. Condition: stable Disposition: PACU Complications:: None immediately apparent
--- NOTE | 2024-08-04 15:50 | EXP.ANES.I ---
[facility] Anesthesia Record Part I Anesthesia Record I Intake, IV Amount: 1,000 Hydration: Adequate Estimated blood loss (mL): 20 Urine output (mL): 0 Blood Products used (#): none Blood Pressure: 125/65 SaO2: 94 Pulse Rate: 79 Airway Patency: Patent Respiratory Rate: 14 Temperature: 97.2 F Patient is:: Drowsy and Stable Stable to PACU at:: 15:45
--- NOTE | 2024-08-05 08:37 | EXP.ANES.II ---
[facility] Anesthesia Record Part II Anesthesia Record Part II Discharge Time: 16:15 Destination: Surgical Day Care (OP Surgery) PACU nurse assessment reviewed?: Yes Patient Condition:: Good Anesthesia Complications:: None Swallowing reflex intact?: Yes Airway Patency: Patent Cyanosis?: No Blood Pressure: 159/94 SaO2: 95 Respiratory Rate: 16 Pulse Rate: 100 Temperature: 97.2 F Mental Status: Alert & Oriented Pain level:: 0 Nausea and/or vomitting:: None Intake, IV Amount: 0 Hydration: Adequate
[2024-08-05 08:40] VITALS: BP 159/94; PULSE 100; RESP 16; TEMP 36.2; O2SAT 95
== END 2024-08-04 16:47 | disposition home or self-care (01) ==
PROVIDERS: PCP Nurse Practitioner Family; Visit Provider Surgery
PROC: 0FT44ZZ Resection of Gallbladder, Percutaneous Endoscopic Approach (ICD-10-PCS; CPT 47562; principal; 2024-08-04 12:55)
DX: K81.9 Cholecystitis, unspecified (principal)
CPT/HCPCS: 47562; 93005; J3490; J0690; J1100; J2250; J2405; J3010; J7120

== ENCOUNTER 2024-08-13 08:09 | Outpatient (CLI) | payer BC, SELFPAY ==
[2024-08-13 16:12] LABS: Chol/HDL Ratio 5.3 (1-3.5); Cholesterol 189 mg/dl (140-200); HDL Cholesterol 36 mg/dl (40-60); Triglycerides 196 mg/dl (30-150); VLDL Cholesterol 39 mg/dL (0-40)
[2024-08-13 16:23] LABS: Direct LDL Cholesterol 107.29 mg/dL (100-129)
== END 2024-08-13 23:59 | disposition home or self-care (01) ==
LOC: LAB.DROPOF 08-14 11:21
PROVIDERS: PCP Nurse Practitioner Family; Visit Provider Nurse Practitioner Family
DX: E78.5 Hyperlipidemia, unspecified (principal)
CPT/HCPCS: 80061

== ENCOUNTER 2024-08-21 07:56 | Outpatient (CLI) | payer BC, SELFPAY ==
--- NOTE | 2024-08-21 | CA_ITS ---
APPROVED REPORT Exam: Pharmacologic Technologist: Adelina Huizar Ht: 5 ft 10 in Wt: 267 lbs BSA: 2.36 m2 Medical History Medications: apixaban, vitamin d3, co q-10, percocet, reglan, metoprolol tartrate, rosuvastatin, valsartan. Stress Test Details Test: Lexiscan Reason for pharmacologic stress test: physical limitation. HR Resting HR: 97 bpm Max Heart Rate (APMHR): 158.267562 bpm Max HR Achieved: 132 bpm Target HR (85% APMHR): 134.661230 bpm % of APMHR: 83.54 Recovery HR: 125 bpm BP Resting BP: 147.0/87.0 mmHg Max BP: 166.0/88.0 mmHg Recovery BP: 161.0/98.0 mmHg ECG Resting ECG: A-fib 90 bpm. Stress ECG Conclusion Symptoms: None. Arrhythmias/Ectopy: A-fib RVR throughout. Electronically signed by : Madyson Allen MD 08/21/2024 14:13:52
--- OUTSIDE RECORDS SUMMARY | 2024-08-21 07:58 | XMS_ITS | Data Portability ---
Author Organization [facility] SEGUNDO Villagomez [place] [facility] Address [address] [place] [address] Care Team Providers Care Core Oven Tender Name Role Phone DENISE JAIN Primary Care Provider Assessment No assessment recorded. Plan of Treatment Reminders Order Date Submit Date Provider Last Modified By Organization Details Last Modified Time Details Appointments None recorded. Lab None recorded. Referral None recorded. Procedures None recorded. Surgeries None recorded. Imaging None recorded. Medication Orders metoprolol succinate ER 50 mg tablet,ext ended release 24 hr 2020 021 [facility] [place], [address], 1 10:57:48 metoprolol succinate ER 25 mg tablet,ext ended release 24 hr 2019 020 [facility] [address] [place], [address], 0 10:55:24 Patient TargetsNo targets recorded. Patient Instructions Encounter Date Encounter Id Patient Instructions Last Modified By Organization Details Last Modified Time 06/30/2019 [id number] palpitations: care instructions [email or web address] Not available 06/30/2019 10:55:09 12/29/2019 [id number] palpitations: care instructions [email or web address] Not available 12/29/2019 15:31:24 06/30/2020 [id number] palpitations: care instructions [email or web address] Not available 06/30/2020 10:57:41 Reason for Referral None Reported. Results Created Date Observation Date Name Description Value Unit Range Abnormal Flag Note LastModifiedBy Organization Detail LastModifiedTime 12/29/19 20 12/29/2019 T4, total , serum T4 (thyroxine) 8.59 ug/dL 4.50-1 1.70 normal Not Available [facility] [address] [place] [address], [phone], 12/29/2019 20:48:04 12/29/19 20 12/29/2019 TSH, serum or plasm a TSH 2.360 uIU/m L 0.290- 5.500 normal Not Available [facility] [address] [place] [address], [phone], 12/29/2019 20:53:24 Result Notes None recorded. Problems Name Problem SNOMED Code Status Onset Date Resolution Date Notes Provider Name and Address Organization Details Recorded Time Palpitatio ns 32092682 Active 2019 JESUS LIAO MD [address] [place] [address], [phone] , [facility] 0 14:30:42 Hypertensi ve disorder 02917377 Active 2020 JESUS LIAO MD [address] [place] [address], [phone] , [facility] 1 10:56:30 Right bundle branch block 92675290 Active 2015 From Automated Load;Provi da: Jesus Liao;Statu s: Active Not Available [facility] 6 06:14:54 Cardiomega ly 6194776 Active 2015 From Automated Load;Provi da: Jesus Liao;Statu s: Active Not Available [facility] 6 06:14:54 Problem Notes None recorded. Procedures Surgical History Date Name Laterality Status Provider Name and Address Organization Details Recorded Time hysterectomy completed [facility] 06/30/2019 09:23:49 tonsillectomy completed [facility] 06/30/2019 09:23:57 Imaging Results None recorded. Procedure [...] Address Organization Details Last Updated DateTime 0 880910. 46 g 35.4 kg/m2 180.34 cm 71 /min 124 mm[Hg] 86 mm[Hg] Merary [facility] 0 09:34:48 Date Recorded Body height Body mass index (BMI) Body weight Heart rate Systolic blood pressure Diastolic blood pressure Provider Name and Address Organization Details Last Updated DateTime 0 180.34 cm 36 kg/m2 829401. 83 g 73 /min 128 mm[Hg] 82 mm[Hg] [facility] 0 14:20:05 Date Recorded Body height Body mass index (BMI) Body weight Heart rate Systolic blood pressure Diastolic blood pressure Provider Name and Address Organization Details Last Updated DateTime 1 180.34 cm 36.7 kg/m2 817485. 79 g 92 /min 146 mm[Hg] 100 mm[Hg] [facility] 1 10:38:29 Social History Question Answer Notes LastModified by Organizat ion Details LastModified Time Tobacco Smoking Status Never Smoker [facility] 06/30/2019 09:21:29 Live Alone Or With Others? With Others [email or web address] Information not available 06/30/2019 Marital Status [email or web address] Informatio n not available 06/30/2019 What Was The Date Of Your Most Recent Tobacco Screening? 06/30/2020 [email or web address] Information not available 06/30/2020 How Many Children Do You Have? 2 [email or web address] Information not available 06/30/2019 Sex: Unknown Functional Status Question Answer Note LastModified by Organizat ion Details LastModified Time What is your level of alcohol consumption? Occasional [email or web address] Information not available 06/30/2019 Do you or have you ever used smokeless tobacco? Never used smokeless tobacco [email or web address] Information not available 06/30/2019 What is your occupation? [employer] [email or web address] Information not available 06/30/2019 Do you or have you ever used e-cigarettes or vape? Never used electronic cigarettes Information not available 06/30/2019 Mental Status None recorded. Family History Relationship Description Onset Age of this Age Resolved Age Notes LastModified by Organization Details LastModified Time Father Congestive heart failure [email or web address] Not available 2019 09:23:01 Unspecified Relation Chronic obstructive pulmonary disease [email or web address] Not available 2019 09:23:13 Unspecified Relation Hypertensive disorder [email or web address] Not available 2019 09:23:19 Unspecified Relation Diabetes mellitus [email or web address] Not available 2019 09:23:29 Unspecified Relation Family history of malignant neoplasm [email or web address] Not available 2019 09:23:38 Medical History No medical history recorded. Gynecological HistoryNo gynecological history recorded. Obstetrics History GPAL:G 0 P 0 0 0 0 Past Encounters Encounter ID Performer Location Encounter Start Date Encounter Closed Date Diagnosis/Indication Diagnosis SNOMED-CT Code Diagnosis ICD10 Code Diagnosis Note [id number] JESUS LIAO MD CARDIOLOG Y [address] [place] [phone] 06/30/2019 08:53:53 06/30/2019 11:00:06 Palpitations 64888224 R00.2 Her electrocar diogram showed only PACs [...] lectronic prescripti on sent to patient's pharmacy. [id number] JESUS LIAO MD CARDIOLOG Y [address] [place] [address] 12/29/2019 14:04:05 12/29/2019 15:46:39 Palpitations 39352403 R00.2 Her electrocar diogram showed only PACs.She feels much better with carvedilol . Thyroid has not been checked and will be reassessed .She wishes to do without metoprolol but will continue for an additional 6 months. [id number] JESUS LIAO MD CARDIOLOG Y [address] [place] [address] 06/30/2020 10:07:06 06/30/2020 11:02:00 Palpitations 99220309 R00.2 Her electrocar diogram showed only PACs without any significan t abnormalit ies. Since she feels better on metoprolol I suggest continuing this medication . These episodes been fairly infrequent ly if she has another episode I suggest a 21 day event recorder. .Apolinar morganti on sent to patient's pharmacy. Hypertensive disorder 38 382170 I10 I discussed the importance of salt [...] Recorded Advance Directives Directive None Recorded Payers Insurance Date Sequence Insurance Name Policy Number Policy [place] Covered Member ID De La Paz Member ID Guarantor Name 06/30/2020 1 [place] [id number] Quan Dixon [id number] Consuelo Dixon 06/30/2019 2 [place] [id number] Quan Dixon [id number] Consuelo Dixon Notes Date Note Type Note Provider Name and Address Organization Details Recorded Time 06/30/2019 text/html WF/ evaluated with NGXT and echo with no significant abnormalities. She now presents with history of an emergency [place] visit [place] when she awoke with sensation of [...] dyspnea, orthopnea, PND, syncope. JESUS LIAO MD [address] [place] [address], [phone], [facility] 06/30/2019 10:55:12 12/29/2019 text/html WF/ 2016: NGXT [...] dyspnea, orthopnea, PND, syncope. JESUS LIAO MD [address] [place] [address], [phone], [facility] 12/29/2019 15:31:27 06/30/2020 text/html WF/ evaluated 20 [...] does not restrict salt. JESUS LIAO MD [address] [place] [address], [phone], [facility] 06/30/2020 10:57:44 OBGyn Episode No OBEpisode recorded.
--- NOTE | 2024-08-21 08:00 | NM_ITS ---
APPROVED REPORT Exam: Nuclear Stress Test Indication: a-fib Patient Location: Outpatient Stress Tech: Adelina Key MT Tech:VELIA Pettit RT(R)(N) Ht: 5 ft 8 in Wt: 220 lbs Bra Size: 38dd HR: 106 bpm BP: 147/87 mmHg BSA: 2.13 m2 TID: 1.28 BMI: 33.4 History: a-fib Procedure: Patient received 0.4 mg of intravenous Lexiscan, resting heart rate 106 bpm, resting blood pressure 147/87 mmHg, with Lexiscan maximum heart rate achieved was 121 bpm which is 85 % of the maximum predicted heart rate and blood pressure was 150/85 mmHg. With Lexiscan, patient denied any complaint of chest pain. Cardiac Stress and Resting SPECT Images: Cardiac Stress and Resting SPECT images were obtained using technetium 99m Myoview 32.6 mCi stress and 10.11 mCi at rest. Resting and stress imaging in supine and prone position demonstrate a large sized, moderate, reversible perfusion defect in the anterior LV wall. There is also increase in transient ischemic dilatation ratio (TID 1.28), suggestive of possible multivessel disease or balanced ischemia. Gated imaging demonstrates severe reduction in global LV systolic function. LVEF is calculated at 29%. Conclusion: Large sized, moderate, reversible perfusion defect in the anterior LV wall. Findings are suggestive of reversible ischemia. There is also increase in transient ischemic dilatation ratio (TID 1.28), suggestive of possible multivessel disease or balanced ischemia. Gated imaging demonstrates severe reduction in global LV systolic function. LVEF is calculated at 29%. Correlation with new or recent TTE is suggested. Electronically signed by : Madyson Allen MD 08/21/2024 14:09:56
[2024-08-21] MEDS: REGADENOSON 0.4MG/5ML SYRINGE 0.4 MG IV (10:07)
[2024-08-21] MEDS: ISOTOPE MYOVIEW (PER STUDY) 1 DOSE IV (10:07)
[2024-08-21] MEDS: SODIUM CHLORIDE 0.9% 10ML SYR (RAD ONLY) 10 ML IV ×2 (10:08)
== END 2024-08-21 23:59 | disposition home or self-care (01) ==
LOC: RAD 07:57
PROVIDERS: PCP Nurse Practitioner Family; Visit Provider Nurse Practitioner
DX: I25.10 Atherosclerotic heart disease of native coronary artery without angina pectoris (principal); I48.0 Paroxysmal atrial fibrillation; R06.02 Shortness of breath
CPT/HCPCS: 78452; 93017; 93018; A9502; J2785

== ENCOUNTER 2024-09-10 07:51 | Day surgery (SDC) | payer BC, SELFPAY ==
[2024-09-10] VITALS (11 sets, daily range): BP systolic 114–188; BP diastolic 68–87; PULSE 70–95; RESP 16–20; O2SAT 95–97; BMI 38.2
--- NOTE | 2024-09-10 07:11 | IR_ITS ---
APPROVED REPORT Patient Location: Outpatient Ocean Export Agent: Jesús Valadez, RT (R) PROCEDURES Left heart catheterization Left ventriculogram Selective coronary angiogram INDICATION Abnormal Myoview, New onset cardiomyopathy Informed consent was obtained prior to the procedure. COMPLICATIONS NONE Estimated Blood Loss: LESS THAN 10 ML TECHNIQUE One percent lidocaine used to anesthetize the right anterior aspect of the wrist. The right radial artery was accessed via the Seldinger technique. A 6 Slovak sheath was placed in the right radial artery. 2.5 mg of Verapamil, 800 mcg of nitroglycerin, 1mg Lidocaine and 5000 U Heparin were given through the arterial sheath. The JL3 catheter was also used to perform left heart catheterization, left ventriculogram and selective coronary angiogram. At the end of the procedure the sheath was removed good hemostasis was achieved using Traclet band, patient was transferred to the postop holding area in stable condition. ANGIOGRAPHIC RESULTS The left main artery normal The left anterior descending artery Has proximal 10% luminal irregularity with remaining vessel widely patent and normal The circumflex artery Normal The right coronary artery Large dominant normal The NEIL ventriculogram reveals Severe left ventricular dilatation with global hypokinesis estimated 25% The left ventricular end-diastolic pressure 30 mmHg IMPRESSION Nonocclusive coronary artery disease Dilated ventricle with global hypokinesis Elevated LVEDP PLAN 1. GDMT for systolic heart failure 2. Evaluation for AICD and/or W[employer] SUPERVISOR-D if candidacy is appropriate Electronically signed by : Farshad More MD 09/10/2024 09:50:36
[2024-09-10 08:17] LABS: Basophils # 0.1 K/mm3 (0-0.2); Basophils % 0.7 % (0.1-2.0); Eosinophils # 0.2 Kmm3 (0.0-0.4); Eosinophils % 2.3 % (0.1-12.0); Hematocrit 43.7 % (37.0-47.0); Hemoglobin 13.9 g/dL (12.2-16.2); Immature Granulocytes # 0.02 10^3uL; Immature Granulocytes % 0.2 %; Lymphocytes # 3.4 K/mm3 (0.7-4.5); Lymphocytes % 39.3 % (10-50); Mean Corpuscular HGB Conc 31.8 g/dL (31.8-35.4); Mean Corpuscular Hemoglobin 29.5 pg (27.0-31.2); Mean Corpuscular Volume 92.8 fl (81-99); Monocytes # 0.8 K/mm3 (0.1-1.0); Monocytes % 9.2 % (1.7-9.3); Neutrophils # 4.2 K/mm3 (1.8-7.8); Neutrophils % 48.3 % (37.0-80.0); Nucleated Red Blood Cells # 0 10^3/uL; Nucleated Red Blood Cells % 0 %; Platelet Count 277 K/mm3 (142-424); Red Blood Count 4.71 M/mm3 (4.20-5.40); Red Cell Distribution Width 12.8 % (11.5-17.5); Red Cell Distribution Width-SD 43.8 fL; White Blood Count 8.6 K/mm3 (4.8-10.8)
[2024-09-10 08:28] LABS: Chloride 109 mmol/L (98-107); Potassium 4.2 mmoL/L (3.5-5.1); Sodium 144 mmol/L (136-145)
[2024-09-10 08:31] LABS: Anion Gap 11.2 mEq/L (5-15); Blood Urea Nitrogen 11 mg/dl (7-17); Calcium 8.9 mg/dl (8.4-10.2); Carbon Dioxide 28 mmol/L (22.0-30.0); Creatinine Clearance Estimated 112 mL/min (50-200); Estimated Glomerular Filt Rate 63 ml/min (>60); GFR (African American) 77 ML/MIN (>60); Glucose 127 mg/dl (74-100)
[2024-09-10] MEDS: LIDOCAINE 1% 10ML MDV 10 ML IJ (08:59)
[2024-09-10] MEDS: HEPARIN 1,000 UNITS/ML 10ML VIAL (CATH LAB) 5000 UNIT IV (09:00)
[2024-09-10] MEDS: VERAPAMIL 2.5MG/ML 2ML VIAL 2.5 MG IV (09:00)
[2024-09-10] MEDS: diphenhydrAMINE 50MG/ML VIAL 50 MG IV (09:00)
[2024-09-10] MEDS: 0.9 % SODIUM CHLORIDE 500 ML 25 ML IV (09:00)
[2024-09-10] MEDS: HEPARIN 1,000 UNITS/500ML NS (CATH LAB) 3000 UNIT IV (09:00)
[2024-09-10] MEDS: NITROGLYCERIN 800MCG/8ML SYR (CATH LAB) 800 MCG IA (09:01)
[2024-09-10] MEDS: MIDAZOLAM HCL 1MG/ML 5ML VIAL 1 MG IV (09:24)
[2024-09-10] MEDS: FENTANYL 100MCG/2ML VIAL 50 MCG IV (09:24)
[2024-09-10] MEDS: IOPAMIDOL-370 (76%);100ML BOTTLE 60 ML IV (11:49)
== END 2024-09-10 12:06 | disposition home or self-care (01) ==
PROVIDERS: PCP Nurse Practitioner Family; Visit Provider Internal Medicine
PROC: 4A023N7 Measurement of Cardiac Sampling and Pressure, Left Heart, Percutaneous Approach (ICD-10-PCS; CPT 93452; principal; 2024-09-10 07:15)
DX: I25.118 Atherosclerotic heart disease of native coronary artery with other forms of angina pectoris (principal); R94.39 Abnormal result of other cardiovascular function study; I11.9 Hypertensive heart disease without heart failure; I43 Cardiomyopathy in diseases classified elsewhere; R06.00 Dyspnea, unspecified; I48.91 Unspecified atrial fibrillation; E11.9 Type 2 diabetes mellitus without complications; I10 Essential (primary) hypertension; E78.5 Hyperlipidemia, unspecified; E66.9 Obesity, unspecified; Z68.38 Body mass index [BMI] 38.0-38.9, adult; Z79.01 Long term (current) use of anticoagulants; Z79.899 Other long term (current) drug therapy
CPT/HCPCS: 93458; 80048; 85025; 99152; C1725; C1769; J1200; J1644; J3010; Q9967

== ENCOUNTER 2024-09-17 11:50 | Outpatient (CLI) | payer BC, SELFPAY ==
--- OUTSIDE RECORDS SUMMARY | 2024-09-17 11:52 | XMS_ITS | Data Portability ---
Author Organization 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 Plan of Treatment Reminders Order Date Submit Date Provider Last Modified By Organization Details Last Modified Time Details Appointments None recorded. Lab None recorded. Referral None recorded. Procedures None recorded. Surgeries None recorded. Imaging None recorded. Medication Orders metoprolol succinate ER 50 mg tablet,ext ended release 24 hr 2020 021 [facility] [place], [address], 1 10:57:48 metoprolol succinate ER 25 mg tablet,ext ended release 24 hr 2019 020 [facility] [address] [place], [address], 0 10:55:24 Patient TargetsNo targets recorded. Patient Instructions Encounter Date Encounter Id Patient Instructions Last Modified By Organization Details Last Modified Time 06/30/2019 [id number] palpitations: care instructions [email or web address] Not available 06/30/2019 10:55:09 12/29/2019 [id number] palpitations: care instructions [email or web address] Not available 12/29/2019 15:31:24 06/30/2020 [id number] palpitations: care instructions [email or web address] Not available 06/30/2020 10:57:41 Reason for Referral None Reported. Results Created Date Observation Date Name Description Value Unit Range Abnormal Flag Note LastModifiedBy Organization Detail LastModifiedTime 12/29/19 20 12/29/2019 T4, total , serum T4 (thyroxine) 8.59 ug/dL 4.50-1 1.70 normal Not Available [facility] [address] [place] [address], [phone], 12/29/2019 20:48:04 12/29/19 20 12/29/2019 TSH, serum or plasm a TSH 2.360 uIU/m L 0.290- 5.500 normal Not Available [facility] [address] [place] [address], [phone], 12/29/2019 20:53:24 Result Notes None recorded. Problems Name Problem SNOMED Code Status Onset Date Resolution Date Notes Provider Name and Address Organization Details Recorded Time Palpitatio ns 63742162 Active 2019 JESUS LIAO MD [address] [place] [address], [phone] , [facility] 0 14:30:42 Hypertensi ve disorder 09980226 Active 2020 JESUS LIAO MD [address] [place] [address], [phone] , [facility] 1 10:56:30 Right bundle branch block 30399269 Active 2015 From Automated Load;Provi da: Jesus Liao;Statu s: Active Not Available [facility] 6 06:14:54 Cardiomega ly 3732625 Active 2015 From Automated Load;Provi da: Jesus Liao;Statu s: Active Not Available [facility] 6 06:14:54 Problem Notes None recorded. Procedures Surgical History Date Name Laterality Status Provider Name and Address Organization Details Recorded Time hysterectomy completed [facility] 06/30/2019 09:23:49 tonsillectomy completed [facility] 06/30/2019 09:23:57 Imaging Results None [...] Address Organization Details Last Updated DateTime 0 969215. 46 g 35.4 kg/m2 180.34 cm 71 /min 124 mm[Hg] 86 mm[Hg] [facility] 0 09:34:48 Date Recorded Body height Body mass index (BMI) Body weight Heart rate Systolic blood pressure Diastolic blood pressure Provider Name and Address Organization Details Last Updated DateTime 1 180.34 cm 36.7 kg/m2 312015. 79 g 92 /min 146 mm[Hg] 100 mm[Hg] [facility] 1 10:38:29 Date Recorded Body height Body mass index (BMI) Body weight Heart rate Systolic blood pressure Diastolic blood pressure Provider Name and Address Organization Details Last Updated DateTime 0 180.34 cm 36 kg/m2 594175. 83 g 73 /min 128 mm[Hg] 82 mm[Hg] [facility] 0 14:20:05 Social History Question Answer Notes LastModified by Organizat ion Details LastModified Time Tobacco Smoking Status Never Smoker [facility] 06/30/2019 09:21:29 Live Alone Or With Others? With Others [email or web address] Information not available 06/30/2019 Marital Status [email or web address] Informatio n not available 06/30/2019 What Was The Date Of Your Most Recent Tobacco Screening? 06/30/2020 Information not available 06/30/2020 How Many Children Do You Have? 2 Information not available 06/30/2019 Sex: Unknown Functional Status Question Answer Note LastModified by Organizat ion Details LastModified Time What is your level of alcohol consumption? Occasional [email or web address] Information not available 06/30/2019 Do you or have you ever used smokeless tobacco? Never used smokeless tobacco [email or web address] Information not available 06/30/2019 What is your occupation? [employer] [email or web address] Information not available 06/30/2019 Do you or have you ever used e-cigarettes or vape? Never used electronic cigarettes [email or web address] Information not available 06/30/2019 Mental Status None recorded. Family History Relationship Description Onset Age of this Age Resolved Age Notes LastModified by Organization Details LastModified Time Father Congestive heart failure [email or web address] Not available 2019 09:23:01 Unspecified Relation Chronic obstructive pulmonary disease [email or web address] Not available 2019 09:23:13 Unspecified Relation Hypertensive disorder [email or web address] Not available 2019 09:23:19 Unspecified Relation Diabetes mellitus Not available 2019 09:23:29 Unspecified Relation Family history of malignant neoplasm [email or web address] Not available 2019 09:23:38 Medical History No medical history recorded. Gynecological HistoryNo gynecological history recorded. Obstetrics History GPAL:G 0 P 0 0 0 0 Past Encounters Encounter ID Performer Location Encounter Start Date Encounter Closed Date Diagnosis/Indication Diagnosis SNOMED-CT Code Diagnosis ICD10 Code Diagnosis Note [id number] JESUS LIAO MD CARDIOLOG Y [address] [place] [phone] 06/30/2019 08:53:53 06/30/2019 11:00:06 Palpitations 45371943 R00.2 Her electrocar diogram showed only PACs [...] lectronic prescripti on sent to patient's pharmacy. [id number] JESUS LIAO MD CARDIOLOG Y [address] [place] [address] 12/29/2019 14:04:05 12/29/2019 15:46:39 Palpitations 05961814 R00.2 Her electrocar diogram showed only PACs.She feels much better with carvedilol . Thyroid has not been checked and will be reassessed .She wishes to do without metoprolol but will continue for an additional 6 months. [id number] JESUS LIAO MD CARDIOLOG Y [address] [place] [address] 06/30/2020 10:07:06 06/30/2020 11:02:00 Palpitations 07785192 R00.2 Her electrocar diogram showed only PACs without any significan t abnormalit ies. Since she feels better on metoprolol I suggest continuing this medication . These episodes been fairly infrequent ly if she has another episode I suggest a 21 day event recorder. .Apolinar morganti on sent to patient's pharmacy. Hypertensive disorder 38 765366 I10 I discussed the importance of salt [...] Paz Member ID Guarantor Name 06/30/2020 1 [place] [id number] A Quan Dixon [id number] 31 Consuelo Dixon 06/30/2019 2 [place] [id number] Quan Dixon [id number] 31 Consuelo Dixon Notes Date Note Type [...] dyspnea, orthopnea, PND, syncope. JESUS LIAO MD [address] [place] [address], [phone], [facility] 06/30/2019 10:55:12 12/29/2019 text/html WF/ 2016: [...] dyspnea, orthopnea, PND, syncope. JESUS LIAO MD [address] [place] [address], [phone], [facility] 12/29/2019 15:31:27 06/30/2020 text/html WF/ evaluated [...] does not restrict salt. JESUS LIAO MD [address] [place] [address], [phone], [facility] 06/30/2020 10:57:44 OBGyn Episode No OBEpisode recorded.
--- OUTSIDE RECORDS SUMMARY | 2024-09-17 11:53 | XMS_ITS | Clinical Summary ---
Author Organization Healthcare Address [address] [place] [address] Care Team Providers Care Chair Mender Name Role Phone Unavailable Primary Care Provider Unavailabl e Allergies No known active allergies Medications atorvastatin (Lipitor) 20 MG tablet 01/03/2021 Active estradiol (Estrace) 0.5 MG tablet Take 0.5 mg by mouth 1 (one) time each day. 04/08/2021 Active metoprolol succinate XL (Toprol-XL) 25 MG 24 hr tablet 1 (one) time each day. Active Social History Tobacco Use Types Packs/Day Years Used Date Smoking Tobacco: Never Smokeless Tobacco: Never Alcohol Use Standard Drinks/Week Comments Not Currently 0 (1 standard drink = 0.6 oz pur e alcohol) Comments Unknown Sex and Gender Information Value Date Recorded Sex Assigned at Not on file Legal Sex Female 9:52 AM EST Gender Identity Not on file Sexual Orientation Not on file Last Filed Vital Signs Vital Sign Reading Time Taken Comments Blood Pressure 152/83 04/14/2021 12:47 PM EST Pulse 77 04/14/2021 12:47 PM EST Temperature 36.1 C (96.9 F) 04/14/2021 12:47 PM EST Respiratory Rate - - Oxygen Saturation - - Inhaled Oxygen Concentration - - Weight 121 kg (266 lb) 04/14/2021 12:47 PM EST Height 180.3 cm (5' 11 ) 04/14/2021 12:47 PM EST Body Mass Index 37.1 04/14/2021 12:47 PM EST Plan of Treatment Health Maintenance Due Date Last Done Comments Dental Oral Exam 1962 Dental Prophylaxis 1962 Dental X-Ray: Bitewings 1962 Dental X-Ray: Full Mouth 1962 [facility]-Depression Screening 1962 [facility]-Infant/Child/Adol SDOH Screenings 1962 [facility]- SDOH Screenings 1980 [facility]-Adult SDOH Screenings 1980 [facility]-DTaP,Tdap,and Td Vaccine s (1 - Tdap) 1981 [facility]-Pap Smear 08/14/1983 [facility]-Cervical Cancer Screening 1992 [facility]-HPV/Cotest 1992 CT Colonography 08/14/2007 Colonoscopy 08/14/2007 FIT-DNA 08/14/2007 FIT 08/14/2007 FOBT 08/14/2007 Sigmoidoscopy 08/14/2007 [facility]-Colorectal Cancer Screening 08/14/2007 [facility]-Pneumococcal Vaccine: 50 + Years (1 of 1 - PCV) 2012 [facility]-Zoster Vaccines (1 of 2) 2012 [id number]-[id number]-76 Vaccine (2 - season) 2023 12/01/2020 [facility]-Influenza Vaccine (Seaso n Ended) 2024 04/09/2018, 01/07/2016 [facility]-RSV Vaccine: 60+ Years o r (1 - 1-dose 75+ series) 2037 HPV Vaccines Aged Out No longer eligi ble based on patient's age to complete this topic UKY-HIB Vaccines Aged Out No longer e ligible based on patient's age to complete this topic UKY-Hepatitis A Vaccines Aged Out No longer eligible based on patient's age to complete this topic UKY-IPV Vaccines Aged Out No longer e ligible based on patient's age to complete this topic UKY-Rotavirus Vaccines Aged Out No lo nger eligible based on patient's age to complete this topic Insurance BEL
[2024-09-17 13:18] LABS: Free Thyroxine Index 3.1 ug/dL (5.93-13.13); T4 (Thyroxine) 8.7 ug/dl (5.53-11.0); Triiodothryronine (T3) Uptake 36 % (23.5-40.5)
[2024-09-17 13:31] LABS: Thyroid Stimulating Hormone 3.29 uIU/mL (0.465-4.68)
--- NOTE | 2024-09-17 13:45 | CA_ITS ---
APPROVED REPORT EXAM: Comprehensive 2D, Doppler, and color-flow Echocardiogram Brick Handler: Lauren Parham CRT Ht: 5 ft 10 in Wt: 264lbs BSA: 2.35 BP: 123/77 mmHg Indications: Shortness of Breath 2D Dimensions LA Volume 56.60 mL LA Volume Index 23.50 mL/m2 (M/F) 16-34 M-Mode Dimensions RVDd 2.70 cm (0.9-2.6) LA Diam 3.88 cm (1.9-4.0) LVDd 4.91 cm (3.5-5.7) LVDs 3.47 cm (3.5-5.7) IVSd 1.23 cm (0.6-1.1) PWd 1.13 cm (0.6-1.1) EF (Teich) 56.10% FS 29.30% EDV (Teich) 113.40 mL TAPSE 1.45 (<1.7) ESV (Teich) 49.80 mL LV Diastology E Decel Time 150 (160-240 msec) E/A Ratio 3.07 LAT A' 10.40 cm/s Aortic Valve AO Peak GR. 5.10 mmHg Mitral Valve MV E Max Rory. 107.0 (40-130 cm/s) MV A Velocity 35.0 (40-130 cm/s) E/A Ratio 3.07 MV PHT 44.0 ms Left Ventricle The left ventricle is normal size. The left ventricular systolic function is normal. The left ventricular ejection fraction is within the normal range. There is increased LV wall thickness. There is normal LV segmental wall motion. Diastolic function is indeterminate. LVEF is 55%. Right Ventricle Right ventricle is moderately dilated. The right ventricular systolic function is borderline reduced. Atria Left atrium is moderately dilated. Right atrium is moderately dilated. There is no Doppler evidence of interatrial shunt. Aortic Valve Aortic valve is mildly thickened. There is no aortic valvular stenosis. Trace aortic regurgitation. Mitral Valve The mitral valve is mildly thickened. No evidence of mitral valve stenosis. Mild mitral regurgitation. Tricuspid Valve Tricuspid valve is grossly normal in structure and function. Trace tricuspid regurgitation. There is insufficient TR jet to estimate RVSP. Pulmonic Valve The pulmonary valve is normal in structure. Trace pulmonic regurgitation. Great Vessels The aortic root is normal in size. IVC is normal in size and collapses >50% with inspiration. Pericardium There is no pericardial effusion. Other Information Study Quality: Fair Conclusion Normal LV systolic function (LVEF 55%). Moderate RV dilation with borderline reduction in RV function. Biatrial dilation. Mild MR. Note the discrepancy in LVEF between the TTE and nuclear stress test. In this setting, the nuclear stress test likely underestimated the LVEF in the setting of atrial fibrillation and miscalculation of and systolic/diastolic phases due to arrhythmia. Electronically signed by : Madyson Allen MD 09/17/2024 23:06:36
== END 2024-09-17 23:59 | disposition home or self-care (01) ==
PROVIDERS: PCP Nurse Practitioner Family; Visit Provider Nurse Practitioner
DX: I11.9 Hypertensive heart disease without heart failure (principal); I25.118 Atherosclerotic heart disease of native coronary artery with other forms of angina pectoris; R06.02 Shortness of breath; R94.39 Abnormal result of other cardiovascular function study; R53.83 Other fatigue; R93.1 Abnormal findings on diagnostic imaging of heart and coronary circulation
CPT/HCPCS: 36415; 84436; 84443; 84479; 93306

== ENCOUNTER 2024-10-13 16:21 | Outpatient (CLI) | payer BC, SELFPAY ==
--- OUTSIDE RECORDS SUMMARY | 2024-10-13 16:24 | XMS_ITS | Data Portability ---
Author Organization [facility] SEGUNDO Villagomez [place] CLOSED Address [address] [facility] [address] [place] [address] Care Team Providers Care Display Department Manager Name Role Phone CRISTOBAL DENISE Primary Care Provider Assessment No assessment recorded. Plan of Treatment Reminders Order Date Submit Date Provider Last Modified By Organization Details Last Modified Time Details Appointments None recorded. Lab None recorded. Referral None recorded. Procedures None recorded. Surgeries None recorded. Imaging None recorded. Medication Orders metoprolol succinate ER 50 mg tablet,ext ended release 24 hr 2020 021 [facility] [address] [place], [address], 1 10:57:48 metoprolol succinate ER 25 mg tablet,ext ended release 24 hr 2019 020 [facility], [address] [place], [address], 0 10:55:24 Patient TargetsNo targets recorded. Patient Instructions Encounter Date Encounter Id Patient Instructions Last Modified By Organization Details Last Modified Time 06/30/2019 [id number] palpitations: care instructions [email or web address] Not available 06/30/2019 10:55:09 12/29/2019 [id number] palpitations: care instructions [email or web address] Not available 12/29/2019 15:31:24 06/30/2020 [id number] palpitations: care instructions [email or web address] Not available 06/30/2020 10:57:41 Reason for Referral None Reported. Results Created Date Observation Date Name Description Value Unit Range Abnormal Flag Note LastModifiedBy Organization Detail LastModifiedTime 12/29/19 20 12/29/2019 T4, total , serum T4 (thyroxine) 8.59 ug/dL 4.50-1 1.70 normal Not Available [facility] [address] [place] [address], [phone], 12/29/2019 20:48:04 12/29/19 20 12/29/2019 TSH, serum or plasm a TSH 2.360 uIU/m L 0.290- 5.500 normal Not Available [facility] [address] [place] [address], [address], 12/29/2019 20:53:24 Result Notes None recorded. Problems Name Problem SNOMED Code Status Onset Date Resolution Date Notes Provider Name and Address Organization Details Recorded Time Palpitatio ns 50178166 Active 2019 JESUS LIAO MD [address] [place] [address], [phone] , [facility] 0 14:30:42 Hypertensi ve disorder 30267806 Active 2020 JESUS LIAO MD [address] [place] [address], [phone] [facility] 1 10:56:30 Right bundle branch block 36521813 Active 2015 From Automated Load;Provi da: Jesus Liao;Statu s: Active Not Available [facility] 6 06:14:54 Cardiomega ly 8105643 Active 2015 From Automated Load;Provi da: Jesus Liao;Statu s: Active Not Available [facility] 6 06:14:54 Problem Notes None recorded. Procedures Surgical History Date Name Laterality Status Provider Name and Address Organization Details Recorded Time hysterectomy completed [facility] 06/30/2019 09:23:49 tonsillectomy completed [facility] 06/30/2019 09:23:57 Imaging Results None recorded. [...] index (BMI) Body height Heart rate Systolic And Diastolic Provider Name and Address Organization Details Last Updated DateTime 06/30/2019 042940.4 6 g 35.4 kg/m2 180.34 cm 71 /min 124/86 mm[Hg] [facility] 06/30/2019 09:34:48 Date Recorded Body height Body mass index (BMI) Body weight Heart rate Systolic And Diastolic Provider Name and Address Organization Details Last Updated DateTime 06/30/2020 180.34 cm 36.7 kg/m2 574439.7 9 g 92 /min 146/100 mm[Hg] [facility] 06/30/2020 10:38:29 Date Recorded Body height Body mass index (BMI) Body weight Heart rate Systolic And Diastolic Provider Name and Address Organization Details Last Updated DateTime 12/29/2019 180.34 cm 36 kg/m2 962563.8 3 g 73 /min 128/82 mm[Hg] [facility] 12/29/2019 14:20:05 Social History Question Answer Notes LastModified by [employer] Details LastModified Time Tobacco Smoking Status Never Smoker [facility] 06/30/2019 09:21:29 Live Alone Or With Others? With Others [email or web address] Information not available 06/30/2019 Marital Status [email or web address] Informatio n not available 06/30/2019 What Was The Date Of Your Most Recent Tobacco Screening? 06/30/2020 [email or web address] Information not available 06/30/2020 How Many Children Do You Have? 2 [email or web address] Information not available 06/30/2019 Sex: Unknown Functional Status Question Answer Note LastModified by Organizat ion Details LastModified Time What is your level of alcohol consumption? Occasional [email or web address] Information not available 06/30/2019 Do you or have you ever used smokeless tobacco? Never used smokeless tobacco [email or web address] Information not available 06/30/2019 What is your occupation? [employer] [email or web address] Information not available 06/30/2019 Do you or have you ever used e-cigarettes or vape? Never used electronic cigarettes [email or web address] Information not available 06/30/2019 Mental Status None recorded. Family History Relationship Description Onset Age of this Age Resolved Age Notes LastModified by Organization Details LastModified Time Father Congestive heart failure [email or web address] Not available 2019 09:23:01 Unspecified Relation Chronic obstructive pulmonary disease [email or web address] Not available 2019 09:23:13 Unspecified Relation Hypertensive disorder Not available 2019 09:23:19 Unspecified Relation Diabetes mellitus [email or web address] Not available 2019 09:23:29 Unspecified Relation Family history of malignant neoplasm [email or web address] Not available 2019 09:23:38 Medical History No medical history recorded. Gynecological HistoryNo gynecological history recorded. Obstetrics History GPAL:G 0 P 0 0 0 0 Past Encounters Encounter ID Performer Location Encounter Start Date Encounter Closed Date Diagnosis/Indication Diagnosis SNOMED-CT Code Diagnosis ICD10 Code Diagnosis Note [id number] JESUS LIAO MD CARDIOLOG Y [address] [place] [address] 06/30/2019 08:53:53 06/30/2019 11:00:06 Palpitations 66378036 R00.2 Her electrocar diogram showed only PACs [...] lectronic prescripti on sent to patient's pharmacy. [id number] JESUS LIAO MD CARDIOLOG Y [address] [place] [address] 12/29/2019 14:04:05 12/29/2019 15:46:39 Palpitations 58428746 R00.2 Her electrocar diogram showed only PACs.She feels much better with carvedilol . Thyroid has not been checked and will be reassessed .She wishes to do without metoprolol but will continue for an additional 6 months. [id number] JESUS LIAO MD CARDIOLOG Y [address] [place] [address] 06/30/2020 10:07:06 06/30/2020 11:02:00 Palpitations 86565192 R00.2 Her electrocar diogram showed only PACs without any significan t abnormalit ies. Since she feels better on metoprolol I suggest continuing this medication . These episodes been fairly infrequent ly if she has another episode I suggest a 21 day event recorder. .Apolinar [place] on sent to patient's pharmacy. Hypertensive disorder 38 330793 I10 I discussed the importance of salt [...] ID Guarantor Name 06/30/2020 1 [place] [id number] A Quan Dixon [id number] 31 Consuelo Dixon 06/30/2019 2 [place] [id number] Quan Dixon [id number] 31 Consuelo Dixon Notes Date Note Type Note Provider Name and Address Organization Details Recorded Time 06/30/2019 text/html WF/ evaluated with NGXT and echo with no significant abnormalities. She now presents with [place] awoke with sensation of [...] dyspnea, orthopnea, PND, syncope. JESUS LIAO MD [address] [place] [address], [phone], [facility] 06/30/2019 10:55:12 12/29/2019 text/html WF/ [...] dyspnea, orthopnea, PND, syncope. JESUS LIAO MD [address] [place] [address], [phone], [facility] 12/29/2019 15:31:27 06/30/2020 text/html WF/ [...] does not restrict salt. JESUS LIAO MD [address] [place] [address], [phone], [facility] 06/30/2020 10:57:44 OBGyn Episode No OBEpisode recorded.
--- OUTSIDE RECORDS SUMMARY | 2024-10-13 16:24 | XMS_ITS | Patient Health Record ---
Author Organization [facility] Address [address] [place] [address] Care Team Providers Care Lumber Racker Name Role Phone Davida Martel Unavailable [phone] Allergies No Known Allergies Reason For Referral No Information Medications Medication SIG (Take, Route, Fr equency, Duration) Notes Start Date End Date Status Vitamin D3 Active Rosuvastatin Calcium Active Entresto Active Social History Tobacco Use: Social History Observation Description Date Details (start date - stop date) Never Smoker NA - NA Social History Drugs/Alcohol: Social Info Question Answer Notes Drugs Have you used drugs other than those for medical reasons in the past 12 months? No Drug/Alcohol: Social Info Question Answer Notes AUDIT-C (Standard) Did you have a drink containing alcohol in the past year? Yes Did you have a drink contain ing alcohol in the past year? Yes How often did you have six or more drinks on one occasion in the past year? Less than monthly (1 point) How often did you have six or more drinks on one occasion in the past year? Less than monthly (1 point) Points 2 Interpretation Negative Interpretation Negative Tobacco Use: Social Info Question Answer Notes Tobacco Control (Standard) Tobacco use: Nonsmoker Problems Problem Type SNOMED Code ICD Code Onset Dates Problem Status W/U Status Risk Notes Problem Gynecological examination normal (618139678133148 ) Cervical smear, as part of routine gynecological examination (Z01.419) 01/25/20 16 Active confirmed Annual without abnormal findings Problem Mammography abnormal (611149101) Abnormal finding on breast imaging (R92.8) Active confirmed Plan Of Treatment No Information Insurance Providers Payer Name Payer Address Payer Phone Subscriber Number Group Number Insured Name Patient Relationship to Insured Coverage Start Date Coverage End Date [employer] [address] [place] [address] [id number] Consuelo Dixon Self - patient is the insured Medical (General) History Medical History History ICD Code HPV / Abnormal pap / condyloma Stress Urinary Incontinence Heart disease Hypercholesterolemia Surgical History Surgery Date(Month/Year) Tonsilectomy 1974, Tubal 200 0, trh, sacrocolpopexy with mini-arc 2011, tonsillectomy
--- OUTSIDE RECORDS SUMMARY | 2024-10-13 16:24 | XMS_ITS | Clinical Summary ---
Author Organization Healthcare Address [address] [place] [address] Care Team Providers Care Animal Daycare Provider Name Role Phone Unavailable Primary Care Provider [...] 2012 UKY-Zoster Vaccines (1 of 2) 2012 RKY-[id number]-50 Vaccine (2 - season) 2023 12/01/2020 [facility]Y-Influenza Vaccine (#1) 12/08/202404/09, 01/07/2016 UKY-RSV Vaccine: 60+ Years o r [...]
[2024-10-13 16:43] LABS: Hematocrit 40.3 % (37.0-47.0); Hemoglobin 12.8 g/dL (12.2-16.2); Immature Granulocytes % 0.2 %; Mean Corpuscular HGB Conc 31.8 g/dL (31.8-35.4); Mean Corpuscular Hemoglobin 29.4 pg (27.0-31.2); Mean Corpuscular Volume 92.4 fl (81-99); Nucleated Red Blood Cells % 0 %; Platelet Count 264 K/mm3 (142-424); Red Blood Count 4.36 M/mm3 (4.20-5.40); Red Cell Distribution Width-SD 43.9 fL; White Blood Count 9.4 K/mm3 (4.8-10.8)
[2024-10-13 17:03] LABS: INR 1.03 (0.9-1.1); Prothrombin Time 11.4 seconds (10.1-12.5)
[2024-10-13 18:30] LABS: Anion Gap 16.1 mEq/L (5-15); Blood Urea Nitrogen 13 mg/dl (7-17); Calcium 8.5 mg/dl (8.4-10.2); Carbon Dioxide 27 mmol/L (22.0-30.0); Chloride 103 mmol/L (98-107); Creatinine,Serum 0.80 mg/dl (0.52-1.04); Estimated Glomerular Filt Rate 73 ml/min (>60); GFR (African American) 88 ML/MIN (>60); Glucose 90 mg/dl (74-100); Potassium 4.1 mmoL/L (3.5-5.1); Sodium 142 mmol/L (136-145)
== END 2024-10-13 23:59 | disposition home or self-care (01) ==
LOC: LAB 16:22
PROVIDERS: PCP Nurse Practitioner Family; Visit Provider Internal Medicine
DX: R93.1 Abnormal findings on diagnostic imaging of heart and coronary circulation (principal); R94.39 Abnormal result of other cardiovascular function study
CPT/HCPCS: 36415; 80048; 85025; 85610

== ENCOUNTER 2024-10-14 08:19 | Day surgery (SDC) | payer BC, SELFPAY ==
[2024-10-07 14:15] VITALS: BMI 37.8
[2024-10-14 08:53] VITALS: BP 125/74; PULSE 69; RESP 18; TEMP 36.2; O2SAT 97
--- NOTE | 2024-10-14 09:04 | ECG_ITS ---
APPROVED REPORT Exam: Resting ECG HR:79 bpm ECG Measurements Heart Rate 79 AXES QRSd 147 QRS 46 QT 436 T -61 QTc 471 Conclusion ATRIAL FIBRILLATION RIGHT BUNDLE BRANCH BLOCK [120+ ms QRS DURATION, UPRIGHT V1, 40+ ms S IN I/aVL/V4/V5/V6] MODERATE T-WAVE ABNORMALITY, CONSIDER LATERAL ISCHEMIA [-0.1+ mV T-WAVE IN I/aVL/V5/V6] MODERATE T-WAVE ABNORMALITY, CONSIDER INFERIOR ISCHEMIA [-0.1+ mV T-WAVE IN II/aVF] ABNORMAL ECG UNCONFIRMED REPORT Electronically signed by : Selvin Mariscal MD 10/15/2024 08:25:15
--- NOTE | 2024-10-14 09:44 | P.PNANES_ITS ---
[facility] Disclaimer: The information contained in this section may have been updated after the patient was seen, as this information can be updated by other users. Medical History Low left ventricular ejection fraction Atypical angina SOB (shortness of breath) SVT (supraventricular tachycardia) Tachycardia Atypical chest pain Plantar fasciitis of right foot Equinus contracture of right ankle Pain in right foot Encounter for screening examination for sexually transmitted disease URI (upper respiratory infection) Pain of wrist after trauma Right wrist sprain Acute bronchitis Acute sinusitis Fatigue Constipation Screening for gonorrhea Screening for chlamydial disease BMI 36.0-36.9,adult Menopause Arthritis HTN (hypertension) Coronary artery disease Dr. More Diastolic dysfunction Dyspnea Abnormal cardiovascular stress test Abnormal electrocardiography Palpitations Viral syndrome Surgical History History of ERCP Hx of cholecystectomy 08/04/24 History of partial hysterectomy Hx of tonsillectomy H/O tubal ligation History of cardiac cath 2021 Family History Father CHF (congestive heart failure) Mother Cancer lung Social History Smoking Status: Never smoker second hand exposure: No (used to have second hand exposure) alcohol intake: never substance use type: denies use current occupational status: employed Travel in the last 8 weeks?: None household members: spouse housing: house current occupational exposures/hazards: No caffeine: Yes Have you lived/traveled outside US in past 30 days?: No Contact w/someone who lives/traveled outside US past 30 days?: No Exposure to someone with infectious disease in past 14 days?: No Do you have a fever (greater than 100.4 F or 38 C)?: No Have you tested positive for COVID-19?: No Exposed to someone with COVID-19 in past 14 days?: No Do you have a sore throat?: No Do you have a cough?: No Do you have any weakness?: No Do you have any diarrhea?: No Are you experiencing any unusual bleeding?: No Do you have any muscle aches/pain?: No Do you have any abdominal pain?: No Are you experiencing loss of taste or smell?: No [facility] Anesthesia Checklist Patient Identification Patient Identification: Arm Band Structural Data Admitted From: Home Planned Operative Procedure/s: CLAIRE/Cardioversion Consent for Planned Operative Procedure(s) Verified: Yes Verified Documents: Surgical Consent and History and Physical NPO Status Verified Time NPO: 00:00 Additional verifications Anesthesia Reactions: No Hx Blood Transfusions: No Blood Transfusion Reaction: No Airway Assessment Mallampati Score:: Class II C-Spine Mobility Assessed: Yes TMJ Mobility Assessed: Yes Dentition: Good Dentition Neurological Assessment Level of Consciousness: Awake, Alert and Appropriate Anesthesia Plan Anesthesia Risk discussed: Yes Anesthesia Plan: Verified ASA Class: III Anesthesia Type: MAC
[2024-10-14 10:41] VITALS: BP 101/55; PULSE 68; RESP 18; TEMP 36.5; O2SAT 95
[2024-10-14 10:56] VITALS: BP 95/61; PULSE 63; RESP 18; TEMP 36.5; O2SAT 95
--- NOTE | 2024-10-14 10:56 | ECG_ITS ---
APPROVED REPORT Exam: Resting ECG HR:63 bpm ECG Measurements Heart Rate 63 AXES MS 186 P 13 QRSd 146 QRS 57 QT 459 T 8 QTc 467 Conclusion SINUS RHYTHM RIGHT BUNDLE BRANCH BLOCK [120+ ms QRS DURATION, UPRIGHT V1, 40+ ms S IN I/aVL/V4/V5/V6] MODERATE T-WAVE ABNORMALITY, CONSIDER LATERAL ISCHEMIA [-0.1+ mV T-WAVE IN I/aVL/V5/V6] ABNORMAL ECG UNCONFIRMED REPORT Electronically signed by : Selvin Mariscal MD 10/15/2024 08:22:13
[2024-10-14 11:11] VITALS: BP 94/61; PULSE 58; RESP 17; TEMP 36.5; O2SAT 98
[2024-10-14 11:26] VITALS: BP 95/59; PULSE 59; RESP 17; TEMP 36.5; O2SAT 97
[2024-10-14 11:41] VITALS: BP 95/62; PULSE 60; RESP 17; TEMP 36.5; O2SAT 98
== END 2024-10-14 11:48 | disposition home or self-care (01) ==
PROVIDERS: PCP Nurse Practitioner Family; Visit Provider Internal Medicine
PROC: (CPT 93312; principal; 2024-10-14 10:00)
DX: I48.0 Paroxysmal atrial fibrillation (principal); R93.1 Abnormal findings on diagnostic imaging of heart and coronary circulation; I25.118 Atherosclerotic heart disease of native coronary artery with other forms of angina pectoris; R94.31 Abnormal electrocardiogram [ECG] [EKG]; E11.9 Type 2 diabetes mellitus without complications; I10 Essential (primary) hypertension; E78.2 Mixed hyperlipidemia; E66.9 Obesity, unspecified; Z68.38 Body mass index [BMI] 38.0-38.9, adult; Z79.01 Long term (current) use of anticoagulants; Z79.899 Other long term (current) drug therapy
CPT/HCPCS: 92960; 93005; 93270; 93312; 93319; J2003; J2704

== ENCOUNTER 2024-11-11 08:19 | Outpatient (CLI) | payer BC, SELFPAY ==
--- OUTSIDE RECORDS SUMMARY | 2024-11-11 08:23 | XMS_ITS | Clinical Summary ---
[facility] Address [address] [place] [address] Care Team Providers Care Roll Reclaimer Name Role Phone IsmaelAmanda VINI Primary Care Provider [phone] Family History Medical History Relation Name Comments No Known Problems Brother No Known Problems Daughter No Known Problems Father No Known Problems Maternal Aunt No Known Problems Maternal Grandmother No Known Problems Mother No Known Problems Paternal Aunt No Known Problems Paternal Grandmother No Known Problems Sister No Known Problems Son Breast cancer Neg Hx Ovarian cancer Neg Hx Relation Name Status Comments Brother Daughter Father Maternal Aunt Maternal Grandmother Mother Paternal Aunt Paternal Grandmother Sister Son Social History Tobacco Use Types Packs/Day Years Used Date Smoking Tobacco: Never Assessed Abuse Screen Answer Date Recorded Unsafe at Home or Work/School Not on file Feels Threatened by Someone? Not on file 12/2022 Does Anyone Keep You from Co ntacting Others or Doint Things Outside the Home? Not on file 01/15/2023 Physical Sign of Abuse Present Not on file 1 Housing Stability Answer Date Recorded Current Living Arrangements Not on file 12/2022 Potentially Unsafe Housing Conditions Not on aníbal e 01/15/2023 Family and Community Support Answer Garry e Recorded Help with Day-to-Day Activities Not on file 01/15/2023 Lonely or Isolated Not on file 01/15/2023 Employment Answer Date Recorded Do you want help finding or keeping work or a mya b? Not on file 01/15/2023 Disabilities Answer Date Recorded Concentrating, Remembering, or Making Decisions Difficulty Not on file 01/15/2023 Doing Errands Independently Difficulty Not on fi le 01/15/2023 Education Answer Date Recorded Help with school or training? Not on file Preferred Language Not on file 01/15/2023 Comments No Sex and Gender Information Value Date Recorded Sex Assigned at Not on file Legal Sex Female 12:09 PM EDT Gender Identity Not on file Sexual Orientation Not on file Plan of Treatment Health Maintenance Due Date Last Done Comments ANNUAL PHYSICAL 1960 Annual Gynecologic Pelvic an d Breast Exam 1960 HEPATITIS C SCREENING 1962 TDAP/TD VACCINES (1 - Tdap) 1981 COLOGUARD 08/14/2007 COLON CANCER SCREENING 5 YEA R SIGMOIDOSCOPY 08/14/2007 COLONOSCOPY 08/14/2007 COLORECTAL CANCER SCREENING 08/14/2007 CT COLONOGRAPHY 08/14/2007 FECAL OCCULT BLOOD TEST 08/14/2007 FIT Testing (1 year) 08/14/2007 Pneumococcal Vaccine 50+ (1 of 1 - PCV) 2012 ZOSTER VACCINE (1 of 2) 2012 COVID-19 Vaccine (1 - 2023-2 5 season) 2023 INFLUENZA VACCINE 01/07/2025 MAMMOGRAM 10/02/2025 10/03/2023, 05/10, 04/14/2021, Additional history exists Procedures Procedure Name Priority Date/Time Associated Diagnosis Comments MAMMO DIAGNOSTIC DIGITAL TOMOSYNTHESIS BILATERAL W CAD Routine 10/03/2023 1:30 PM EDT Abnormal finding on breast imaging from Last 3 Months or Most Recently Relevant to Health Maintenance Results * Mammo Diagnostic Digital Tomosynthesis Bilateral With CAD (10/03/2023 1:30 PM EDT) Anatomical Region Laterality Modality Breast Bilateral Mammography 10/03/2023 1:43 PM EDT Impressions 10/03/2023 1:47 PM EDT 1. Right breast: No suspicious abnormality is seen. Recommendation is for continued routine annual screening mammogram. 2. Left breast: Interval decrease in size of previously seen mildly prominent low left axillary lymph node. On today's exam left axillary lymph nodes are mammographically stable dating back to 2014. No suspicious abnormality is seen. Recommendation is for continued routine annual screening mammogram 3. Today's findings and recommendations were discussed with the patient at the time of the examination by the breast care team. OVERALL ASSESSMENT: BI-RADS Category 1: Negative. Recommend continued routine follow-up. This report was finalized on 10/03/2023 1:47 PM by Moriah Vivar MD. Narrative 10/03/2023 1:47 PM EDT EXAM: MAMMO DIAGNOSTIC DIGITAL TOMOSYNTHESIS BILATERAL W CAD- DATE:10/03/2023 1:44 PM INDICATION: Patient is a 63-year-old female who presents for short-term follow-up diagnostic left mammogram for mildly prominent left axillary lymph node on screening mammogram. At time of diagnostic patient reported recent COVID vaccination. No personal or family history of breast cancer. COMPARISON: Comparison is made to studies dating back to 02/09/2014. TECHNIQUE: 2D/3D CC and MLO views of each breast were obtained FINDINGS: There are scattered fibroglandular studies. Right breast: No suspicious mass, calcifications, or areas of distortion are seen. Left breast: No suspicious masses, calcifications, or areas of distortion are seen. Previously seen mildly prominent low left lymph node originally noted on the study dated 04/14/2021 has decreased in size. On today's exam visualized left axillary lymph nodes are stable mammographically compared to multiple prior studies dating back to 2015. Davida Martel MD IMG MAMMOGRAPHY ORDERABLES F inal Result from Last 3 Months or Most Recently Relevant to Health Maintenance Insurance [facility] PPO Member Subscriber Plan / Payer (Ef fective 2007-Present) Name:Consuelo Sheehan Relation to Subscriber:Spouse Name:MILLA SHEEHAN Date of :1964 (Home) Address: [id number] [id number] Payer ID:[id number] (NAIC) Type:Not on file Address: [facility] [id number] [place] [id number] Care Teams Roll Reclaimer Relationship Specialty Start Date End Date Amanda Guevara APRN [address] [place] [id number] PCP - General Nurse Practitioner 10/03/23
--- OUTSIDE RECORDS SUMMARY | 2024-11-11 08:23 | XMS_ITS | Clinical Summary ---
Author Organization Healthcare Address [address] [place] [address] Care Team Providers Care Laundry Folder Name Role Phone Unavailable Primary Care Provider [...] X-Ray: Full Mouth 1962 [facility]-Depression Screening 1962 [facility]-/Child/Adol SDOH Screenings 1962 [facility]- SDOH Screenings 1980 [facility]-Adult SDOH Screenings 1980 [facility]-DTaP,Tdap,and Td Vaccine s (1 - Tdap) 1981 [facility]-Pap Smear 08/14/1983 [facility]-Cervical Cancer Screening 1992 [facility]-HPV/Cotest 1992 CT Colonography 08/14/2007 Colonoscopy 08/14/2007 FIT-DNA 08/14/2007 FIT 08/14/2007 FOBT 08/14/2007 Sigmoidoscopy 08/14/2007 [facility]-Colorectal Cancer Screening 08/14/2007 [facility]-Pneumococcal Vaccine: 50 + Years (1 of 1 - PCV) 2012 [facility]-Zoster Vaccines (1 of 2) 2012 [id number] Vaccine (2 - season) 2023 12/01/2020 [facility]-Influenza [...]
[2024-11-11 08:55] LABS: Chloride 107 mmol/L (98-107)
[2024-11-11 08:56] LABS: Albumin Level 3.1 g/dl (3.5-5.0); Potassium 4.0 mmoL/L (3.5-5.1); Sodium 137 mmol/L (136-145)
[2024-11-11 08:58] LABS: Alanine Aminotransferase 16 U/L (12-78); Anion Gap 6.0 mEq/L (5-15); Aspartate Amino Transferase 24 U/L (14-36); Blood Urea Nitrogen 13 mg/dl (7-17); Carbon Dioxide 28 mmol/L (22.0-30.0); Creatinine,Serum 0.80 mg/dl (0.52-1.04); Estimated Glomerular Filt Rate 73 ml/min (>60); GFR (African American) 88 ML/MIN (>60)
[2024-11-11 08:59] LABS: Albumin/Globulin Ratio 0.9 (1.1-1.8); Alkaline Phosphatase 60 U/L (38-126); Bilirubin,Total 0.4 mg/dl (0.2-1.3); Calcium 9.1 mg/dl (8.4-10.2); Globulin 3.5 g/dL (1.3-3.2); Glucose 125 mg/dl (74-100); Total Protein,Serum 6.6 g/dl (6.3-8.2)
== END 2024-11-11 23:59 | disposition home or self-care (01) ==
LOC: LAB 08:20
PROVIDERS: PCP Nurse Practitioner Family; Visit Provider Internal Medicine Gastroenterology
DX: K80.50 Calculus of bile duct without cholangitis or cholecystitis without obstruction (principal)
CPT/HCPCS: 36415; 80053

== ENCOUNTER 2025-02-03 09:05 | Day surgery (SDC) | payer BC, SELFPAY ==
[2025-02-02 14:40] VITALS: BMI 36.5
[2025-02-03 10:24] VITALS: BP 132/98; PULSE 68; RESP 18; TEMP 36.2; O2SAT 98; BMI 36.5
[2025-02-03 10:39] LABS: Hematocrit 43.3 % (37.0-47.0); Hemoglobin 13.7 g/dL (12.2-16.2); Immature Granulocytes % 0.3 %; Mean Corpuscular HGB Conc 31.6 g/dL (31.8-35.4); Mean Corpuscular Hemoglobin 29.5 pg (27.0-31.2); Mean Corpuscular Volume 93.1 fl (81-99); Nucleated Red Blood Cells % 0 %; Platelet Count 239 K/mm3 (142-424); Red Blood Count 4.65 M/mm3 (4.20-5.40); Red Cell Distribution Width-SD 43.6 fL; White Blood Count 7.5 K/mm3 (4.8-10.8)
--- NOTE | 2025-02-03 10:39 | ECG_ITS ---
APPROVED REPORT Exam: Resting ECG HR:80 bpm ECG Measurements Heart Rate 80 AXES QRSd 137 QRS 69 QT 397 T 0 QTc 433 Conclusion ATRIAL FIBRILLATION WITH ABERRANT CONDUCTION OR VENTRICULAR PREMATURE COMPLEXES INTRAVENTRICULAR CONDUCTION DELAY [130+ ms QRS DURATION] ABNORMAL ECG UNCONFIRMED REPORT Electronically signed by : Selvin Mariscal MD 02/04/2025 08:07:53
--- NOTE | 2025-02-03 10:44 | EXP.ANES.CKL ---
[facility] Disclaimer: The information contained in this section may have been updated after the patient was seen, as this information can be updated by other users. Medical History Low left ventricular ejection fraction Atypical angina SOB (shortness of breath) SVT (supraventricular tachycardia) Tachycardia Atypical chest pain Plantar fasciitis of right foot Equinus contracture of right ankle Pain in right foot Encounter for screening examination for sexually transmitted disease URI (upper respiratory infection) Pain of wrist after trauma Right wrist sprain Acute bronchitis Acute sinusitis Fatigue Constipation Screening for gonorrhea Screening for chlamydial disease BMI 36.0-36.9,adult Menopause Arthritis HTN (hypertension) Coronary artery disease Diastolic dysfunction Dyspnea Abnormal cardiovascular stress test Abnormal electrocardiography Palpitations Viral syndrome Surgical History History of ERCP Hx of cholecystectomy History of partial hysterectomy Hx of tonsillectomy H/O tubal ligation History of cardiac cath Family History Father CHF (congestive heart failure) Mother Cancer Social History Smoking Status: Never smoker second hand exposure: No (used to have second hand exposure) alcohol intake: never substance use type: denies use current occupational status: employed Travel in the last 8 weeks?: None household members: spouse housing: house current occupational exposures/hazards: No caffeine: Yes [facility] Anesthesia Checklist Patient Identification Patient Identification: Arm Band and Verbal (Name & ) Structural Data Admitted From: Home Planned Operative Procedure/s: CLAIRE and cardioversion Consent for Planned Operative Procedure(s) Verified: Yes Verified Documents: Surgical Consent and History and Physical NPO Status Verified Time NPO: 00:00 Additional verifications Anesthesia Reactions: No Hx Blood Transfusions: No Blood Transfusion Reaction: No Previous Colonoscopy: Yes Airway Assessment Mallampati Score:: Class II Dentition: Good Dentition Neurological Assessment Level of Consciousness: Awake, Alert and Appropriate Hx Seizures: No Numbness or tingling in extremities: No Anesthesia Plan Anesthesia Risk discussed: Yes Anesthesia Plan: Verified ASA Class: II Anesthesia Type: MAC
[2025-02-03] MEDS: LACTATED RINGERS 1000ML 1,000 ML 50 ML IV (10:46)
[2025-02-03 10:54] LABS: Chloride 104 mmol/L (98-107); Sodium 137 mmol/L (136-145)
[2025-02-03 10:55] LABS: Potassium 4.0 mmoL/L (3.5-5.1)
[2025-02-03 10:57] LABS: Blood Urea Nitrogen 13 mg/dl (7-17); Creatinine Clearance Estimated 109 mL/min (50-200); Creatinine,Serum 0.80 mg/dl (0.52-1.04); Estimated Glomerular Filt Rate 73 ml/min (>60); GFR (African American) 88 ML/MIN (>60)
[2025-02-03 10:58] LABS: Anion Gap 8.0 mEq/L (5-15); Calcium 8.5 mg/dl (8.4-10.2); Carbon Dioxide 29 mmol/L (22.0-30.0); Glucose 111 mg/dl (74-100)
--- NOTE | 2025-02-03 11:00 | CA_ITS ---
APPROVED REPORT EXAM: Comprehensive 2D, Doppler, and color-flow Echocardiogram [employer]: Afia Lutz RVT Ht: 5 ft 11 in Wt: 262lbs BSA: 2.36 BP: 124/90 mmHg Indications: A-FIB WITH CARDIOVERSION Procedure After obtaining informed consent, patient underwent transesophageal echo in the [facility]. Type of Sedation : MAC Sedation start time: 11:45 Case end Time: 12:05 Transesophageal probe was inserted and advanced into esophagus without difficulty by Dr. Madyson Allen. The CLAIRE was performed without complications. Synchronized Cardioversion acheived with 150 Joules after 1 attempt(s). Rhythm following Synchronized Cardioversion: Normal Sinus Rhythm Throughout the procedure, the blood pressure, pulse oximetry, cardiac rhythm, and rate were monitored. The patient tolerated the procedure without adverse effects. Recovery from conscious sedation was uneventful and vital signs were stable. Left Ventricle The left ventricle is normal size. The left ventricular systolic function is normal. The left ventricular ejection fraction is within the normal range. There is increased LV wall thickness. There is normal LV segmental wall motion. LVEF is 55%. Right Ventricle Right ventricle is mildly dilated. The right ventricular systolic function is normal. Atria Left atrium is mildly dilated. No thrombus is visualized in the left atrium or appendage. Right atrium is mildly dilated. The interatrial septum is intact with no evidence for an atrial septal defect. Aortic Valve The aortic valve is normal in structure. The aortic valve is trileaflet. There is no aortic valvular stenosis. No aortic regurgitation is present. Mitral Valve The mitral valve is normal in structure. No evidence of mitral valve stenosis. Mild mitral regurgitation. Tricuspid Valve Tricuspid valve is grossly normal in structure and function. Mild tricuspid regurgitation. RVSP is 8 mmHg + RA pressure. Pulmonic Valve The pulmonary valve is normal in structure. Trace pulmonic regurgitation. Great Vessels The aortic root is normal in size. The ascending aorta is normal in size. Pericardium There is small-sized, anterior, localized pocket of pericardial effusion along the distal RV free wall. No echo indications of tamponade. Other Information Study Quality: Fair Conclusion Normal biventricular systolic function. Mild RV dilation. Mild biatrial dilation. Mild MR, mild TR. Small-sized, anterior, localized pocket of pericardial effusion along the distal RV free wall. No echo indications of tamponade. Once CLAIRE demonstrated no evidence of LA/REED thrombus, the patient underwent DCCV successfully with 150J, after which her rhythm converted from Afib to NSR. She remained asymptomatic and well in recovery. She was eventually discharged in stable and asymptomatic condition. Electronically signed by : Madyson Allen MD 02/08/2025 15:43:10
[2025-02-03 11:09] LABS: INR 1.05 (0.9-1.1); Prothrombin Time 11.6 seconds (10.1-12.5)
[2025-02-03 11:43] VITALS: BP 135/87; PULSE 68; RESP 16; TEMP 36.3; O2SAT 95
--- NOTE | 2025-02-03 11:46 | ECG_ITS ---
APPROVED REPORT Exam: Resting ECG HR:66 bpm ECG Measurements Heart Rate 66 AXES OR 180 P 7 QRSd 139 QRS 23 QT 441 T -36 QTc 455 Conclusion SINUS RHYTHM POSSIBLE LEFT ATRIAL ENLARGEMENT [-0.1mV P-WAVE IN V1/V2] RIGHT BUNDLE BRANCH BLOCK [120+ ms QRS DURATION, UPRIGHT V1, 40+ ms S IN I/aVL/V4/V5/V6] MODERATE T-WAVE ABNORMALITY, CONSIDER INFERIOR ISCHEMIA [-0.1+ mV T-WAVE IN II/aVF] ABNORMAL ECG UNCONFIRMED REPORT Electronically signed by : Selvin Mariscal MD 02/04/2025 08:07:49
--- NOTE | 2025-02-03 11:51 | SUR.PHASEII ---
post op EKG shown to CORY WhitesideO
[2025-02-03 11:53] VITALS: BP 114/73; PULSE 61; RESP 15; O2SAT 96
[2025-02-03 12:03] VITALS: BP 119/74; PULSE 63; RESP 17; O2SAT 96
[2025-02-03 12:13] VITALS: BP 122/73; PULSE 60; RESP 18; O2SAT 99
== END 2025-02-03 12:15 | disposition home or self-care (01) ==
PROVIDERS: PCP Nurse Practitioner Family; Visit Provider Internal Medicine
DX: I48.0 Paroxysmal atrial fibrillation (principal); I25.118 Atherosclerotic heart disease of native coronary artery with other forms of angina pectoris; R93.1 Abnormal findings on diagnostic imaging of heart and coronary circulation; R06.00 Dyspnea, unspecified; R94.31 Abnormal electrocardiogram [ECG] [EKG]; I47.10 Supraventricular tachycardia, unspecified; I10 Essential (primary) hypertension; E78.2 Mixed hyperlipidemia; G47.33 Obstructive sleep apnea (adult) (pediatric); R53.83 Other fatigue; E11.9 Type 2 diabetes mellitus without complications; E66.9 Obesity, unspecified; Z68.38 Body mass index [BMI] 38.0-38.9, adult; Z79.1 Long term (current) use of non-steroidal anti-inflammatories (NSAID); Z79.01 Long term (current) use of anticoagulants; Z79.899 Other long term (current) drug therapy
CPT/HCPCS: 80048; 85025; 85610; 92960; 93005; 93270; 93312; 93319; J2003; J2704; J7120

== ENCOUNTER 2025-02-23 09:35 | Outpatient (CLI) | payer BC, SELFPAY ==
[2025-02-23 17:30] LABS: Cholesterol 138 mg/dl (140-200); HDL Cholesterol 38 mg/dl (40-60); Triglycerides 150 mg/dl (30-150)
[2025-02-23 17:47] LABS: Free T4 (Free Thyroxine) 1.37 ng/dl (0.78-2.19)
[2025-02-23 18:02] LABS: Thyroid Stimulating Hormone 1.77 uIU/mL (0.465-4.68)
[2025-02-23 18:15] LABS: 25-OH Vitamin D, Total 51.3 ng/mL (30-100)
[2025-02-23 18:31] LABS: Hemoglobin A1C 6.2 % (4.0-6.0)
[2025-02-23 21:05] LABS: Vitamin B12 302 pg/mL (239-931)
== END 2025-02-23 23:59 ==
LOC: LAB.DROPOF 02-24 09:17
PROVIDERS: PCP Nurse Practitioner Family; Visit Provider Nurse Practitioner Family
DX: E11.69 Type 2 diabetes mellitus with other specified complication (principal); E66.9 Obesity, unspecified; I10 Essential (primary) hypertension; E55.9 Vitamin D deficiency, unspecified; E78.5 Hyperlipidemia, unspecified; R53.83 Other fatigue; E53.8 Deficiency of other specified B group vitamins; G47.33 Obstructive sleep apnea (adult) (pediatric); Z68.37 Body mass index [BMI] 37.0-37.9, adult
CPT/HCPCS: 80061; 82306; 82607; 83036; 84439; 84443

== ENCOUNTER → 2025-02-24 10:18 | Outpatient (CLI) | payer BC, SELFPAY | LOC: SL 10:19 | PROVIDERS: PCP Nurse Practitioner Family; Visit Provider Nurse Practitioner | DX: G47.33 Obstructive sleep apnea (adult) (pediatric) (principal); G47.36 Sleep related hypoventilation in conditions classified elsewhere | CPT/HCPCS: G0399 ==

== ENCOUNTER 2025-02-27 08:30 | Outpatient (CLI) | payer BC, SELFPAY ==
--- NOTE | 2025-02-27 08:15 | MR_ITS ---
FINAL REPORT CLINICAL HISTORY: left shoulder pain and injury. limited rom. weakness in arm COMPARISON: None FINDINGS: Multi planar MR imaging of the left shoulder was performed. Abnormal signal at the anterior insertion of the distal supraspinatus tendons probably due to tendinosis. No definite evidence of full-thickness tendon tear. There is a trace amount of fluid in the subacromial/subdeltoid bursa. Large tear through the anterior labrum. Posterior labrum intact. Subscapularis tendon intact. The biceps tendon appears intact. The acromioclavicular joint appears intact. IMPRESSION: Tendinosis distal supraspinatus tendon without definite full-thickness tear. Large tear anterior labrum. Correlate with clinical presentation. Reviewed, Interpreted and Dictated by Gualberto Kuhn MD Transcribed by Belinda Naranjo Authenticated and [facility]
--- OUTSIDE RECORDS SUMMARY | 2025-02-27 08:32 | XMS_ITS | Clinical Summary ---
[facility] Address [address] [place] [address] Care Team Providers Care Tower Attendant Name Role Phone IsmaelAmanda VINI Primary Care Provider [phone] Family History Medical History Relation Name Comments [...] Orientation Not on file Plan of Treatment Upcoming Encounters Date Type Department Care Team (Late st Contact Info) Description 03/03/2025 2:00 PM EST Office Visit [facility] CARDIOLOGY [address] [place] [address] Franck Frye, DO [address] [place] [address] 03/10/2025 11:20 AM EST Appointment [facility] [place] [address] [place] [address] Health Maintenance Due Date Last Done Comments [...] 2012 ZOSTER VACCINE (1 of 2) 2012 INFLUENZA VACCINE 11/07/2024 MAMMOGRAM 10/02/2025 10/03/2023, 05/10, 04/14/2021, Additional history exists Procedures Procedure Name Priority Date/Time Associated Diagnosis Comments SCANNED EKG 02/02/2025 MAMMO DIAGNOSTIC DIGITAL TOMOSYNTHESIS BILATERAL W CAD Routine 10/03/2023 1:30 PM EDT Abnormal finding on breast imaging from Last 3 Months or Most Recently Relevant to Health Maintenance Results * ECG Scan (02/02/2025) [facility] ECG ORDERABLES Final Result * Mammo Diagnostic Digital Tomosynthesis Bilateral With [...] to multiple prior studies dating back to 2014. us Davida Martel MD IMG MAMMOGRAPHY ORDERABLES F inal Result from Last 3 Months or Most Recently Relevant to Health Maintenance Insurance [facility] PPO Care Teams Tower Attendant Relationship Specialty Start Date End Date Amanda Guevara APRN [address] [place] [id number] PCP - General Nurse Practitioner 10/03/23
--- OUTSIDE RECORDS SUMMARY | 2025-02-27 08:32 | XMS_ITS | Data Portability ---
Author Organization [facility] SEGUNDO Villagomez CHANDLER CLOSED Address [address] [place] [address] Care Team Providers Care Switchboard Mechanic Name Role Phone CRISTOBAL DENISE Primary Care Provider Assessment No assessment recorded. Plan of Treatment Reminders Order Date Submit Date Provider Last Modified By Organization Details Last Modified Time Details Appointments None recorded. Lab None recorded. Referral None recorded. Procedures None recorded. Surgeries None recorded. Imaging None recorded. Medication Orders metoprolol succinate ER 50 mg tablet,ext ended release 24 hr 2020 021 [facility] [address] [place], [address], 1 10:57:48 metoprolol succinate ER 25 mg tablet,ext ended release 24 hr 2019 020 [facility] [address] [place], [address], 0 10:55:24 Patient TargetsNo targets recorded. Patient Instructions Encounter Date Encounter Id Patient Instructions Last Modified By Organization Details Last Modified Time 06/30/2019 [id number] palpitations: care instructions [email or web address] Not available 06/30/2019 10:55:09 12/29/2019 [id number] palpitations: care instructions [email or web address] Not available 12/29/2019 15:31:24 06/30/2020 [id number] palpitations: care instructions [email or web address] Not available 06/30/2020 10:57:41 Reason for Referral None Reported. Results Created Date Observation Date Name Description Value Unit Range Abnormal Flag Note LastModifiedBy Organization Detail LastModifiedTime 12/29/19 20 12/29/2019 T4, total , serum T4 (thyroxine) 8.59 ug/dL 4.50-1 1.70 normal Not Available [facility] [address] [place] [address], [phone], 12/29/2019 20:48:04 12/29/19 20 12/29/2019 TSH, serum or plasm a TSH 2.360 uIU/m L 0.290- 5.500 normal Not Available [facility] [address] [place] [address], [phone], 12/29/2019 20:53:24 Result Notes None recorded. Problems Name Problem SNOMED Code Status Onset Date Resolution Date Notes Provider Name and Address Organization Details Recorded Time Right bundle branch block 09004598 Active 2015 From Automated Load;Provi da: Jesus Liao;Statu s: Active Not Available [facility] 6 06:14:54 Cardiomega ly 7105504 Active 2015 From Automated Load;Provi da: Jesus Liao;Statu s: Active Not Available [facility] 6 06:14:54 Palpitatio ns 99133266 Active 2019 JESUS LIAO MD [address] [place] [address], [address] [place] [address] , [facility] 0 14:30:42 Hypertensi ve disorder 96227039 Active 2020 JESUS LIAO MD [address] [place] [address] 1 10:56:30 Problem Notes None recorded. Procedures Surgical History Date Name Laterality Status Provider Name and Address Organization Details Recorded Time hysterectomy completed Merary Short [facility] 06/30/2019 09:23:49 tonsillectomy completed [facility] 06/30/2019 09:23:57 Imaging Results None recorded. [...] Address Organization Details Last Updated DateTime 06/30/2019 903745.4 6 g 35.4 kg/m2 180.34 cm 71 /min 124/86 mm[Hg] Meraryally [facility] 06/30/2019 09:34:48 Date Recorded Body height Body mass index (BMI) Body weight Heart rate Systolic And Diastolic Provider Name and Address Organization Details Last Updated DateTime 06/30/2020 180.34 cm 36.7 kg/m2 370876.7 9 g 92 /min 146/100 mm[Hg] [facility] 06/30/2020 10:38:29 Date Recorded Body height Body mass index (BMI) Body weight Heart rate Systolic And Diastolic Provider Name and Address Organization Details Last Updated DateTime 12/29/2019 180.34 cm 36 kg/m2 072881.8 3 g 73 /min 128/82 mm[Hg] [facility] 12/29/2019 14:20:05 Social History Question Answer Notes LastModified by Kopjra Details LastModified Time Tobacco Smoking Status Never Smoker [facility] 06/30/2019 09:21:29 Live Alone Or With Others? With Others [email or web address] Information not available 06/30/2019 Marital Status [email or web address] Informatio n not available 06/30/2019 What Was The Date Of Your Most Recent Tobacco Screening? 06/30/2020 [email or web address] Information not available 06/30/2020 How Many Children Do You Have? 2 [email or web address] Information not available 06/30/2019 Sex: Unknown Functional Status Question Answer Note LastModified by Organizat ion Details LastModified Time What is your level of alcohol consumption? Occasional [email or web address] Information not available 06/30/2019 Do you or have you ever used smokeless tobacco? Never used smokeless tobacco [email or web address] Information not available 06/30/2019 What is your occupation? [employer] [email or web address] Information not available 06/30/2019 Do you or have you ever used e-cigarettes or vape? Never used electronic cigarettes [email or web address] Information not available 06/30/2019 Mental Status None recorded. Family History Relationship Description Onset Age of this Age Resolved Age Notes LastModified by Organization Details LastModified Time Father Congestive heart failure Not available 2019 09:23:01 Unspecified Relation Chronic obstructive pulmonary disease [email or web address] Not available 2019 09:23:13 Unspecified Relation Hypertensive disorder [email or web address] Not available 2019 09:23:19 Unspecified Relation Diabetes mellitus [email or web address] Not available 2019 09:23:29 Unspecified Relation Family history of malignant neoplasm Not available 2019 09:23:38 Medical History No medical history recorded. Gynecological HistoryNo gynecological history recorded. Obstetrics History GPAL:G 0 P 0 0 0 0 Past Encounters Encounter ID Performer Location Encounter Start Date Encounter Closed Date Diagnosis/Indication Diagnosis SNOMED-CT Code Diagnosis ICD10 Code Diagnosis IMO Codes Diagnosis Note [id number] JESUS LIAO MD CARDIOLOG Y [address] [place],[address] [place] [phone] 06/30/2019 08:53:53 06/30/2019 11:00:06 Palpitations 80830081 R00.2 Her electrocar diogram showed only PACs [...] lectronic prescripti on sent to patient's pharmacy. [id number] JESUS LIAO MD CARDIOLOG Y [address] [place],[address] [place] [address] 12/29/2019 14:04:05 12/29/2019 15:46:39 Palpitations 13024970 R00.2 Her electrocar diogram showed only PACs.She feels much better with carvedilol . Thyroid has not been checked and will be reassessed .She wishes to do without metoprolol but will continue for an additional 6 months. [id number] JESUS LIAO MD CARDIOLOG Y [address] [place] [address] 06/30/2020 10:07:06 06/30/2020 11:02:00 Palpitations 34479887 R00.2 Her electrocar diogram showed only PACs without any significan t abnormalit ies. Since she feels better on metoprolol I suggest continuing this medication . These episodes been fairly infrequent ly if she has another episode I suggest a 21 day event recorder. .Apolinar newton on sent to patient's pharmacy. Hypertensive disorder 38 031589 I10 I discussed the importance of salt [...] ID Guarantor Name 06/30/2020 1 [place] [id number] A Quan Dixon [id number] Consuelo Dixon 06/30/2019 2 [employer] [id number] Quan Dixon [id number] 31 Consuelo Dixon Notes Date Note Type Note Provider Name and Address Organization Details Recorded Time 06/30/2019 text/html WF/ evaluated 2016 with NGXT and echo with no significant abnormalities. She now presents with history of [place] when [place] awoke with sensation of [...] dyspnea, orthopnea, PND, syncope. JESUS LIAO MD [address] [place] [address] [place], [address], [facility] 06/30/2019 10:55:12 12/29/2019 text/html WF/ 2016: NGXT and echo [place]. ER visit in May 2019, [...] dyspnea, orthopnea, PND, syncope. JESUS LIAO MD [address] [place] [address], [phone], [facility] 12/29/2019 15:31:27 06/30/2020 text/html WF/ evaluated 2015 with NGXT and echo with no significant [...] does not restrict salt. JESUS LIAO MD [address] [place] [address] [place], [address], [facility] 06/30/2020 10:57:44 OBGyn Episode No OBEpisode recorded.
--- OUTSIDE RECORDS SUMMARY | 2025-02-27 08:32 | XMS_ITS | Patient Health Record ---
Author Organization [facility] Address [address] [place] [address] Care Team Providers Care Bank Teller Name Role Phone Davida Matrel Unavailable [phone] Allergies No Known Allergies Reason For Referral [...] Problem Status W/U Status Risk Notes Problem Mammography abnormal (185002872) Abnormal finding on breast imaging (R92.8) Active confirmed Problem Gynecological examination normal (517337250552219 ) Cervical smear, as part of routine gynecological examination (Z01.419) 01/25/20 16 Active confirmed Annual without abnormal findings Plan Of Treatment No Information Insurance Providers Payer Name Payer Address Payer Phone Subscriber Number Group Number Insured Name Patient Relationship to Insured Coverage Start Date Coverage End Date [employer]ARKS [address] [place] [address] [id number] Consuelo Dixon Self - patient is the insured Medical (General) History Medical History History ICD Code HPV / Abnormal pap / condyloma Stress Urinary Incontinence Heart disease Hypercholesterolemia Surgical History Surgery Date(Month/Year) Tonsilectomy 1974, Tubal 200 0, trh, sacrocolpopexy with mini-arc 2011, tonsillectomy
--- OUTSIDE RECORDS SUMMARY | 2025-02-27 08:32 | XMS_ITS | Clinical Summary ---
Author Organization Healthcare Address [address] [place] [address] Care Team Providers Care Retail Interior Designer Name Role Phone Unavailable Primary Care Provider [...] 2012 UKY-Zoster Vaccines (1 of 2) 2012 [id number] Vaccine (2 - 2024- season) 2024 12/01/2020 UKY-Influenza Vaccine (#1) 12/08/202404/09, 01/07/2016 UKY-RSV [...]
== END 2025-02-27 23:59 | disposition home or self-care (01) ==
LOC: RAD 08:30
PROVIDERS: PCP Nurse Practitioner Family; Visit Provider Nurse Practitioner Family
DX: S43.492A Other sprain of left shoulder joint, initial encounter (principal); M75.82 Other shoulder lesions, left shoulder; M25.612 Stiffness of left shoulder, not elsewhere classified
CPT/HCPCS: 73221

== ENCOUNTER 2025-03-09 11:52 | Outpatient (CLI) | payer BC, SELFPAY ==
--- OUTSIDE RECORDS SUMMARY | 2025-03-03 14:00 | XMS_ITS | Encounter Summary ---
Author Organization [facility] Address [address] [place] [address] Care Team Providers Care Mobile Home Technician Name Role Phone Amanda Guevara APRN Primary Care Provider [phone] Reason for Visit * Reason Comments Palpitations Shortness of Breath Atrial Fibrillation Ablation * Consultation (Routine) - Closed Specialty Diagnoses / Procedures Referred By Contact Referred To Contact Cardiac Electrophysiology / Cardiology Diagnoses AFIB ABLATION Procedures [place] OFFICE[facility]PATIENT [facility] 45 MINUTES System, [place] [address] Franck Frye DO [address] [place] [address] Phone: tel: fax: Referral ID Status Reason Start Date Expiration Date Visits Re quested Visits Authorized [id number] Closed 02/17/2025 05/19/2026 1 1 Encounter Details Date Type Department Care Team (Late st Contact Info) Description 03/03/2025 2:00 PM EST Office Visit [facility] C[facility] [address] [place] [address] Franck Frye DO [address] [place], [place] [phone] Persistent atrial fibrillation (Primary Dx); Chronic HFrEF (heart failure with reduced ejection fraction); Chronic anticoagulation Social History Tobacco Use Types Packs/Day Years Used Date Smoking Tobacco: Never Smokeless Tobacco: Never Tobacco Cessation:Counseling Given: Not Answered Alcohol Use Standard Drinks/Week Comments Not Currently 0 (1 standard drink = 0.6 oz pur e alcohol) Abuse Screen Answer Date Recorded Unsafe at [...] on file Sexual Orientation Not on file documented as of this encounter Last Filed Vital Signs Vital Sign Reading Time Taken Comments Blood Pressure 118/76 03/03/2025 2:38 PM EST Pulse 91 03/03/2025 2:38 PM EST Temperature - - Respiratory Rate - - Oxygen Saturation 95% 03/03/2025 2:38 PM EST Inhaled Oxygen Concentration - - Weight 118 kg (260 lb) 03/03/2025 2:38 PM EST Height 180.3 cm (5' 11 ) 03/03/2025 2:38 PM EST Body Mass Index 36.26 03/03/2025 2:38 PM EST documented in this encounter Progress Notes * Franck Frye DO - 03/03/2025 2:00 PM EST Images from the original note were not included. Cardiac Electrophysiology Outpatient Consult Note [facility] at Consult Note Consuelo Dixon [id number] 03/03/2025 Primary Care Physician: Amanda Guevara APRN Referred By: Amanda Guevara APRN Subjective Chief Complaint: Diagnoses and all orders for this visit: 1. Persistent atrial fibrillation (Primary) 2. Chronic HFrEF (heart failure with reduced ejection fraction) 3. Chronic anticoagulation Chief Complaint Patient presents with Palpitations Shortness of Breath Atrial Fibrillation Ablation History of Present Illness: Consuelo Dixon is a 64 y.o. female who presents to my electrophysiology clinic for evaluation of above. Past Medical History: Past Medical History: Diagnosis Date Abnormal ECG Arrhythmia Arthritis Atrial fibrillation Colon polyps Essential hypertension Heart palpitations High cholesterol Sleep apnea Past Surgical History: Past Surgical History: Procedure Laterality Date CHOLECYSTECTOMY HYSTERECTOMY AGE 51 Family History: Family History Problem Relation Name Age of Onset Anemia Mother Pretty Arrhythmia Mother Pretty Asthma Mother Pretty Heart failure Father Lalita Heart disease Father Lalita No Known Problems Sister No Known Problems Brother No Known Problems Daughter No Known Problems Son No Known Problems Maternal Grandmother No Known Problems Paternal Grandmother No Known Problems Maternal Aunt No Known Problems Paternal Aunt Breast cancer Neg Hx Ovarian cancer Neg Hx Social History: Social History Socioeconomic History Marital status: Tobacco Use Smoking status: Never Smokeless tobacco: Never Vaping Use Vaping status: Never Used Substance and Sexual Activity Alcohol use: Not Currently Drug use: Never Sexual activity: Yes Partners: Female Medications: Current Outpatient Medications: apixaban (ELIQUIS) 5 MG tablet tablet, Take 1 tablet by mouth 2 (Two) Times a Day., Disp: , Rfl: cholecalciferol (VITAMIN D3) 1.25 MG (75115 UT) capsule, Take 1 capsule by mouth Every 7 (Seven) Days., Disp: , Rfl: coenzyme Q10 100 MG capsule, Take 1 capsule by mouth 2 (Two) Times a Day., Disp: , Rfl: metoprolol tartrate (LOPRESSOR) 100 MG tablet, Take 1.5 tablets by mouth 2 (Two) Times a Day., Disp: , Rfl: valsartan (DIOVAN) 160 MG tablet, Take 1 tablet by mouth Daily., Disp: , Rfl: Allergies: Not on File Objective Vital Signs: Vitals: 03/03/25 1438 BP: 118/76 BP Location: Left arm Patient Position: Sitting Pulse: 91 SpO2: 95% Weight: 118 kg (260 lb) Height: 180.3 cm (71 ) PHYSICAL EXAM General appearance: Awake, alert, cooperative Head: Normocephalic, without obvious abnormality, atraumatic Eyes: Conjunctivae/corneas clear, EOMs intact Neck: no adenopathy, no carotid bruit, no JVD, and thyroid: not enlarged Lungs: clear to auscultation bilaterally and no rhonchi or crackles , ' symmetric Heart: regular rate and rhythm, S1, S2 normal, no murmur, click, rub or gallop Abdomen: Soft, non-tender, bowel sounds normal, no organomegaly Extremities: extremities normal, atraumatic, no cyanosis or edema Skin: Skin color, turgor normal, no rashes or lesions Neurologic: Grossly normal No results found for: GLUCOSE , CALCIUM , NA , K , CO2 , CL , BUN , CREATININE , EGFRIFAFRI , EGFRIFNONA , BCR , ANIONGAP No results found for: WBC , HGB , HCT , MCV , PLT No results found for: INR , PROTIME No results found for: TSH , T8MZDVK , R5QOIPF , THYROIDAB Cardiac Testing: I personally viewed and interpreted the patient's EKG/Telemetry/lab data Procedures Tobacco Cessation: N/A Obstructive Sleep Apnea Screening: Completed Advance Care Planning ACP discussion was declined by the patient. Patient does not have an advance directive, declines further assistance. Assessment & Plan Diagnoses and all orders for this visit: 1. Persistent atrial fibrillation (Primary) 2. Chronic HFrEF (heart failure with reduced ejection fraction) 3. Chronic anticoagulation EKG shows atrial fibrillation today Diagnosis Plan 1. Persistent atrial fibrillation 64-year-old female patient referred for persistent symptomatic atrial fibrillation. 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 Normal cardiac catheterization recently. While in A-fib ejection fraction 30%. While in normal sinus rhythm subsequently ejection fraction normal albeit by different assessment. Clearly quite symptomatic. Lengthy and detailed conversation with this patient about the benefits of rhythm control. We discussed pharmacotherapy with inpatient admission for either sotalol or dofetilide therapy versus outpatient amiodarone therapy. She is not interested in either of these 2 options. We spent a fair bit of time discussing first-line ablation as therapy for her persistent A-fib associated with heart failure. I reviewed the specific risk-benefit profile the procedure. I quoted the patient a 1 to 2% chance of significant procedure complication including but not limited to bleeding at the groin, cardiac perforation, tamponade, stroke, myocardial infarction, phrenic nerve injury, pulmonary vein stenosis, catheter entrapment of the mitral valve annulus, esophageal injury as well as fistula and otherpotential complications. Rhythmia General anesthesia Preop CT Do not hold anticoagulation Hold antiarrhythmic drug for 3 days Concomitant typical flutter ablation as well. The patient and I made a mutually shared decision ( shared decision making model ) that the patientwould be best served by proceeding with the above invasive heart procedure. This is a high risk invasive cardiac procedure which comes with significant risk of morbidity and mortality. This patient has significant underlying heart disease. Consuelo Dixon understands these risks and has made an informed decision to proceed. 2. 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 Will reassess after rhythm control with ablation as outlined above. 3. Chronic anticoagulation Likely benefit from lifelong anticoagulation. Body mass index is 36.26 kg/m??. I spent 49 minutes in consultation with this patient which included more than 65% of this time in direct [id number] counseling, physical examination and discussion of my assessment and findings andthis shared decision making with the patient. The remainder of the time not spent [id number] was performing one, some or all of the following actions: preparing to see the patient (e.g. reviewing tests, prior clinicians' notes, etc), ordering medications, tests or procedures, coordination of care, discussion of the plan with other healthcare providers, documenting clinical information in epic as well as independently interpreting results and communication of these results to the patient family and/or caregiver(s). Please note that this explicitly excludes time spent on other separate billable services such as performing procedures or test interpretation, when applicable. Follow Up: Thank you for allowing me to participate in the care of your patient. Please to not hesitate to contact me with additional questions or concerns. Franck Frye DO, FAC, RS Cardiac Acute Dialysis Nurse [facility] documented in this encounter Plan of Treatment Upcoming Encounters Date Type Department Care Team (Late st Contact Info) Description 03/10/2025 11:20 AM EST Appointment [facility] [address] [place] [phone] Scheduled Procedures Name Priority Associated Diagnoses Date/Ti me ABLATION A-FIB Atrial fibrillation, unspecified type documented as of this encounter Visit Diagnoses Diagnosis Persistent atrial fibrillation- Primary Atrial fibrillation Chronic HFrEF (heart failure with reduced ejection fraction) Chronic anticoagulation Encounter for long-term (current) use of anticoagulants documented in this encounter Care Teams Mobile Home Technician Relationship Specialty Start Date End Date Amanda Guevara APRN [address] [place] [address] PCP - General Nurse Practitioner 10/03/23 documented as of this encounter
--- NOTE | 2025-03-09 11:54 | XR_ITS ---
FINAL REPORT CLINICAL HISTORY: left shoulder pain FINDINGS: LEFT SHOULDER 3 views of the left shoulder were obtained. There is no acute fracture or dislocation. Visualized joint spaces are normally aligned. Soft tissues are unremarkable. IMPRESSION: No acute bony abnormality. Reviewed, Interpreted and Dictated by Chika Ingram MD Transcribed by Guerita Zaragoza Authenticated and [facility]
--- OUTSIDE RECORDS SUMMARY | 2025-03-09 12:01 | XMS_ITS | Clinical Summary ---
Author Organization Healthcare Address [address] [place] [address] Care Team Providers Care Newspaper Writer Name Role Phone Unavailable Primary Care Provider [...] 2012 UKY-Zoster Vaccines (1 of 2) 2012 [id number] Vaccine (2 - 2024- season) 2024 12/01/2020 [...]
--- OUTSIDE RECORDS SUMMARY | 2025-03-09 12:01 | XMS_ITS | Clinical Summary ---
Author Organization [facility] Address [address] [place] [address] Care Team Providers Care Bottle Label Inspector Name Role Phone Amanda Guevara APRN Primary Care Provider [phone] Medications apixaban (ELIQUIS) 5 MG tablet tablet Take 1 tablet by mouth 2 (Two) Times a Day. Active valsartan (DIOVAN) 160 MG tablet Take 1 tablet by mouth Daily. Active coenzyme Q10 100 MG capsule Take 1 capsule by mouth 2 (Two) Times a Day. Active metoprolol tartrate (LOPRESSOR) 100 MG tablet Take 1.5 tablets by mouth 2 (Two) Times a Day. Active cholecalciferol (VITAMIN D3) 1.25 MG (74071 UT) capsule Take 1 capsule by mouth Every 7 (Seven) Days. Active Active Problems Problem Noted Date Diagnosed Date Chronic HFrEF (heart failure with reduced ejection fraction) 03/06/2025 Chronic anticoagulation 03/06/2025 Atrial fibrillation 03/04/2025 Encounters Date Type Department Care Team Description 03/03/2025 2:00 PM EST Office Visit [facility] [address] [place] [id number] Franck Frye DO Persistent atrial fibrillation (Primary Dx); Chronic HFrEF (heart failure with reduced ejection fraction); Chronic anticoagulation 03/03/2025 Travel from Last 3 Months Family History Medical History Relation Name Comments No Known Problems Brother No Known Problems Daughter Heart disease Father Lalita Heart failure Father Lalita No Known Problems Maternal Aunt No Known Problems Maternal Grandmother Anemia Mother Pretty Arrhythmia Mother Pretty Asthma Mother Pretty No Known Problems Paternal Aunt No Known Problems Paternal Grandmother No Known Problems Sister No Known Problems Son Breast cancer Neg Hx Ovarian cancer Neg Hx Relation Name Status Comments Brother Daughter Father Laliat Maternal Aunt Maternal Grandmother Mother Pretty Paternal Aunt Paternal Grandmother Sister Son Social [...] Mass Index 36.26 03/03/2025 2:38 PM EST Plan of Treatment Upcoming Encounters Date Type Department Care Team (Late st Contact Info) Description 03/10/2025 11:20 AM EST Appointment [facility] [place] [address] [place] [id number] Scheduled Procedures Name Priority Associated Diagnoses Date/Ti me ABLATION A-FIB Atrial fibrillation, unspecified type Health Maintenance Due Date Last Done Comments Annual Gynecologic Pelvic an d Breast Exam 1960 Pneumococcal Vaccine 50+ (1 of 2 - PCV) 1981 TDAP/TD VACCINES (1 - Tdap) 1981 COLOGUARD 08/14/2007 COLON CANCER SCREENING 5 YEA R SIGMOIDOSCOPY 08/14/2007 COLONOSCOPY 08/14/2007 COLORECTAL CANCER SCREENING 08/14/2007 CT COLONOGRAPHY 08/14/2007 FECAL OCCULT BLOOD TEST 08/14/2007 FIT Testing (1 year) 08/14/2007 ZOSTER VACCINE (1 of 2) 2012 INFLUENZA VACCINE 11/07/2024 02/02/2024, , 01/07/2016 ANNUAL PHYSICAL 03/03/2025 HEPATITIS C SCREENING 03/03/2025 MAMMOGRAM 10/02/2025 10/03/2023, 05/10, 04/14/2021, Additional history exists Procedures Procedure Name Priority Date/Time Associated Diagnosis Comments [facility] GENETIC ASSESSMENT Routine 03/03/2025 10:54 AM EST SCANNED EKG 02/02/2025 MAMMO DIAGNOSTIC DIGITAL TOMOSYNTHESIS BILATERAL W CAD Routine 10/03/2023 1:30 PM EDT Abnormal finding on breast imaging from Last 3 Months or Most Recently Relevant to Health Maintenance Results * [facility] GENETIC RISK ASSESSMENT QUESTIONNAIRE - , (03/03/2025 10:54 AM EST) [place] [address] [facility] GENETICS NCCN NCCN not met [facility] [id number] Comment:High Risk Cancer Ris k Assessment 03/03/2025 10:5 4 AM EST Davida Martel MD GENETIC TESTING Final Result [place]N [place]LLED[place]
[address] [place] [place] [id number], * ECG Scan (02/02/2025) [facility] Onbase ECG ORDERABLES Final Result * Mammo Diagnostic [...] multiple prior studies dating back to 2015. us Davida Martel MD IMG MAMMOGRAPHY ORDERABLES F inal Result from Last 3 Months or Most Recently Relevant to Health Maintenance Insurance [facility] PPO Care Teams Bottle Label Inspector Relationship Specialty Start Date End Date Amanda Guevara APRN [address] [place] [id number] PCP - General Nurse Practitioner 10/03/23
--- OUTSIDE RECORDS SUMMARY | 2025-03-09 12:01 | XMS_ITS | Encounter Summary ---
Author Organization [facility] Address [address] [place] [id number] Care Team Providers Care Credit And Collection Manager Name Role Phone Amanda Guevara APRN Primary Care Provider [phone] Encounter Details Date Type Department Care Team (Latest Contact Info) Description 03/03/2025 Travel Social History Tobacco Use Types Packs/Day Years [...] on file documented as of this encounter Plan of Treatment Upcoming Encounters Date Type Department Care Team (Late st Contact Info) Description 03/10/2025 11:20 AM EST Appointment [facility] [place] [address] [place] [address] Scheduled Procedures Name Priority Associated Diagnoses Date/Ti me ABLATION A-FIB Atrial fibrillation, unspecified type documented as of this encounter Visit Diagnoses Not on filedocumented in this encounter Care Teams Credit And Collection Manager Relationship Specialty Start Date End Date Amanda Guevara APRN [address] [place] [id number] PCP - General Nurse Practitioner 10/03/23 documented as of this encounter
== END 2025-03-09 23:59 | disposition home or self-care (01) ==
LOC: RAD 11:53
PROVIDERS: PCP Nurse Practitioner Family; Visit Provider Physician Assistant Surgical
DX: S43.432A Superior glenoid labrum lesion of left shoulder, initial encounter (principal); X58.XXXA Exposure to other specified factors, initial encounter
CPT/HCPCS: 73030

== ENCOUNTER 2025-03-18 15:00 | Outpatient (RCR) | payer BC, SELFPAY ==
--- NOTE | 2025-03-11 09:22 | HMH.OTOPEV ---
OT Evaluation Rehab OT Outpatient Eval Start: 03/11/25 08:11 Freq: Status: Active Protocol: Document 03/11/25 09:06 RADHAALEX (Rec: 03/11/25 09:22 RADHAALEX [id number]) E-signed By Geovanna Clemons, OT Outpatient Therapy Subjective History Subjective History 64-year-old female referred to skilled OT services due to persistent left shoulder pain. Patient reports a two-month history of progressively worsening pain. MRI completed on 02/27/25 revealed tendinosis of the distal supraspinatus tendon without a definitive full-thickness tear and a large anterior labral tear, correlating with the patient?s clinical presentation. Left upper extremity X-ray on 03/09/25 indicated no acute findings. Patient currently demonstrates limited shoulder mobility and consistent pain, resulting in difficulty with donning/doffing clothing, lifting tasks, and pushing activities with the left upper extremity. Level of pain today 0 (0-10) Pain scale - at its 0 best (0-10) Pain scale - at its 8 worst (0-10) Shoulder/Elbow Eval Shoulder Objective Measurements Shoulder ROM Right Shoulder Abduction 20 Active Range of Motion (degrees) Shoulder Flexion 90 Active Range of Motion (degrees) Query Text: Shoulder External 20 Rotation Active Range of Motion ( degrees) Shoulder Internal 30 Rotation Active Range of Motion ( degrees) pain with active ROM left shoulder exam standard Shoulder MMT Left Shoulder Abduction 3- Fair- Strength Grade Shoulder Extension 3- Fair- Strength Grade Shoulder Flexion 3- Fair- Strength Grade Shoulder Horizontal 3- Fair- Abduction Strength Grade Shoulder Horizontal 3- Fair- Adduction Strength Grade Infraspinatus/Teres 3- Fair- Minor Strength Grade Shoulder External 3- Fair- Rotation Strength Grade Shoulder Internal 3- Fair- Rotation Strength Grade Elbow Objective Measurements QuickDASH Activities Please rate your ability to do the following activities in the last week by selecting the number below the appropriate response. 1. Open a tight or No difficulty new jar. 2. 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 3. Carry a shopping No difficulty bag or briefcase. 4. Wash your back. No difficulty 5. Use a knife to No difficulty cut food. 6. Recreational No difficulty activities in which you take some force or impact through your arm, shoulder, or hand (e.g., golf, hammering, tennis, etc.). 7. During the past Not at all week, to what extent has your arm, shoulder or hand problem interfered with your normal social activities with family, friends , neighbors or groups? 8. During the past Moderately limited week, were you limited in your work or other regular daily activites as a result of your arm, shoulder or hand problem? 9. Arm, shoulder or Moderate hand pain. 10. Tingling (pins None and needles) in your arm, shoulder or hand. 11. During the past Mild difficulty week, how much difficulty have you had sleeping because of the pain in your arm, shoulder or hand? Quick DASH 16 OT Patient Goals OT Patient Goals OT Short Term 1. Patient will demonstrate improved L shoulder AROM by Patient Goals at least 10?15 degrees in flexion and abduction to increase independence with dressing tasks. 2. Patient will report decreased pain levels to =4/10 during light functional use of the L UE with implementation of pain-management strategies (e.g., activity modification, positioning). 3. Patient will perform upper-body dressing with no more than minimal assistance, utilizing compensatory techniques as needed. 4. Patient will tolerate a progressive strengthening and ROM program for the L UE without increased pain for improved functional participation in ADLs. OT Nursing Home Patient 1. Patient will achieve functional L shoulder AROM Goals within functional limits to safely and independently complete ADLs and light IADLs. 2. Patient will demonstrate improved L UE strength by at least one MMT grade, enabling safe lifting and pushing tasks required for daily routines. 3. Patient will complete full dressing routine independently without increased pain or compensatory movement patterns. 4. Patient will report improved functional ability, as demonstrated by a clinically significant improvement on an OT-appropriate outcome measure (e.g., QuickDASH). OT Outpatient Assessment Impairments Problems/Impairments Impaired Range of Motion,Impaired Strength,Subjective C /O Pain Prognosis Rehab Potential Good Clinical Impression Consistent with Yes Diagnosis Additional details: Patient is a 64-year-old female presenting with a two- month history of progressively worsening left shoulder pain, consistent with imaging findings of supraspinatus tendinosis and a significant anterior labral tear. Current deficits include decreased ROM, pain with functional use, and reduced strength of the left upper extremity, which are limiting independence and efficiency with ADLs, particularly dressing, lifting, and pushing tasks. Patient would benefit from continued skilled OT services to address pain management, improve shoulder mobility and strength, and enhance functional performance and safety during daily activities. Outpatient Therapy Plan of Care Treatment Plan May Include Therapeutic Exercise Yes Including Home Exercise Program Manual Therapy Yes Techniques Therapeutic Yes Activities to Return to Previous Functional/Work Level Thermal Modalities Yes Electrical Yes Stimulation Ultrasound/ Yes Phonophoresis Iontophoresis Yes Eval/Re-Eval Yes Frequency Times per week 2x/wk Duration Number of Weeks 4 weeks Addendums This patient is a No candidate for social or vocational rehab ? Patient/Guardian Yes verbally acknowledges understanding of treatment program and consents to further treatment? Patient/Guardian Yes verbally acknowledges understanding of diagnosis, prognosis and goals for treatment? Eval Complexity OT Charge 53145 - Low Complexity PHYSICIAN CERTIFICATION: I certify the specified therapy services for Consuelo Dixon are required, authorized, and reviewed every 30 days.
== END 2025-03-18 23:59 | disposition home or self-care (01) ==
LOC: OT 15:00
PROVIDERS: PCP Nurse Practitioner Family; Visit Provider Student in an Organized Health Care Education/Training Program
DX: M25.512 Pain in left shoulder (principal); S43.432A Superior glenoid labrum lesion of left shoulder, initial encounter; X58.XXXA Exposure to other specified factors, initial encounter
CPT/HCPCS: 97014; 97032; 97110; 97140; 97165; 97530; G0283